=== PATIENT | male | born 1940 | race Caucasian/White ===

== ENCOUNTER → 2018-05-13 19:32 | Outpatient (REF) | payer OTHER, SELFPAY | LOC: LAB 19:32 | PROVIDERS: Visit Provider Physician Assistant | DX: L03.319 Cellulitis of trunk, unspecified (principal) | CPT/HCPCS: 87070; 87075; 87077; 87147; 87205 ==

== ENCOUNTER 2018-05-16 17:16 | Emergency (ER) | payer OTHER, SELFPAY ==
[2018-05-16 17:42] VITALS: BP 125/86; PULSE 84; RESP 20; TEMP 36.2; O2SAT 98; BMI 22.8
--- NOTE | 2018-05-16 18:00 | ED.SKABFB ---
HPI - Skin/Abscess/Foreign Bdy General Chief complaint: Skin/Abscess/Foreign Body Stated complaint: cyst on his back leaking Time Seen by Provider: 05/16/18 18:00 Source: patient Mode of arrival: ambulatory Limitations: no limitations History of Present Illness HPI narrative: The patient had an I and D done on his back at the right inferior scapular area about 4 days ago. He was showering today, the packing came out. He came in asking that the wound be checked. There is drainage from the site. He has no fever. He is on clindamycin. He also recently had a pacer placed. He wanted me to look at that wound also. He is having no chest pain, palpitations or dyspnea Related Data Home Medications Medication Instructions Recorded Confirmed spironolactone [Aldactone] 12.5 mg PO QDAY #0 11/27/15 warfarin [Coumadin] 2 mg PO QDAY #0 tab 11/27/15 warfarin [Coumadin] 3 mg PO QDAY #0 tab 11/27/15 bisoprolol fumarate 5 mg PO BID #0 12/25/15 bumetanide 1 mg #0 12/25/15 omeprazole 20 mg PO BID #0 tab 12/25/15 digoxin [Lanoxin] #0 04/05/17 Previous Rx's Medication Instructions Recorded ondansetron [Zofran ODT] 4 mg SUBLINGUAL Q6HP PRN #4 odt 04/05/17 Allergies Allergy/AdvReac Type Severity Reaction Status Date / Time fluconazole [FLUCONAZOLE] Allergy Mild RASH Verified 05/16/18 17:41 itraconazole [From SPORANOX] Allergy Unknown Verified 05/16/18 17:41 Review of Systems Review of Systems ROS Unobtainable: All systems reviewed & are unremarkable except as noted in HPI and below Constitutional Denies body ache(s), Denies chills and Denies fatigue Cardiovascular Denies chest pain, Denies irregular heart rhythm, Denies lightheadedness, Denies palpitations, Denies dyspnea and Denies orthopnea Respiratory Denies dyspnea Integumentary/Breasts Comments: recently drained I and D on the back. Endocrine Denies fatigue and Denies palpitations PFSH Medical History Arrhythmia (Acute) Pacemaker (Acute) Social History Smoking Status: Never smoker Social History Smoking Status: Never smoker Exam Initial Vital Signs Initial Vital Signs: Vital Signs Temperature 97.2 F L 05/16/18 17:42 Pulse Rate 84 05/16/18 17:42 Respiratory Rate 20 05/16/18 17:42 Blood Pressure 125/86 05/16/18 17:42 Pulse Oximetry 98 05/16/18 17:42 Const General: cooperative and well developed Nutritional Appearance: well nourished Orientation: alert, awake and oriented x3 Chest Chest: other ( pacemaker in place in the left upper chest. Contusion. No seroma.) Cardio Rate: regular rate Rhythm: regular rhythm Heart Sounds: S1 normal and S2 normal Skin General: other ( Draining abscess right midback) Course Course Narrative: the wound was evaluated in his back. A moderate amount of purulent bloody material was expressed. The wound is open, with only bloody serous discharge at this point. A superficial bandage was applied by his nurse, no packing is necessary. Vital Signs - 8 hr 05/16/18 17:42 Temperature 97.2 F L Pulse Rate 84 Respiratory Rate 20 Blood Pressure 125/86 Pulse Oximetry 98 Discharge Plan Departure Patient Disposition: Home Clinical Impression: Abscess re-check Instructions: DI for Skin Abscess Activity Restrictions/Additional Instructions: shower regularly. Change bandages over the wound as necessary. Continue taking the antibiotics. Follow up with her doctor as planned, return here if necessary. Prescriptions: No Action warfarin [Coumadin] 3 MG tablet 3 mg PO QDAY Qty: 0 RF: 0 warfarin [Coumadin] 2 MG tablet 2 mg PO QDAY Qty: 0 RF: 0 spironolactone [Aldactone] 25 MG tablet 12.5 mg PO QDAY Qty: 0 RF: 0 bisoprolol fumarate 5 MG tablet 5 mg PO BID Qty: 0 RF: 0 omeprazole 20 MG tablet,delayed release (DR/EC) 20 mg PO BID Qty: 0 RF: 0 bumetanide 1 MG tablet 1 mg Qty: 0 RF: 0 digoxin [Lanoxin] 125 mcg tablet Qty: 0 RF: 0 ondansetron [Zofran ODT] 4 MG tablet,disintegrating 4 mg Sublingual Q6HP PRNQty: 4 RF: 0 Referrals: Claudio Piper MD [Primary Care Provider] -
--- NOTE | 2018-05-16 18:14 | PC.NURSE ---
States had packing in a cyst that is on his back that came out when he showered
== END 2018-05-16 19:06 | disposition home or self-care (01) ==
PROVIDERS: Emergency Provider Emergency Medicine; PCP Internal Medicine
DX: L02.212 Cutaneous abscess of back [any part, except buttock and flank] (principal); Z95.0 Presence of cardiac pacemaker
CPT/HCPCS: 99282

== ENCOUNTER → 2019-08-24 14:58 | Outpatient (CLI) | payer OTHER, SELFPAY ==
--- NOTE | 2019-08-24 15:05 | DI.ECHO.S_ITS ---
[facility]---------+ [facility] +---------+ : : [address] [place] : : : : [id number] : : : : Phone: [phone] +---------+ Echocardiogram Report + + :Name: BÁRBARA KEEN Study Date: 08/24/2019 Height: 69 in : :[facility] Weight: 157 lb : : Gender: Male BSA: 1.9 m2 : :: 1940 Age: 78 yrs BP: 118/68 mmHg: :Reason For Study: Cardiomyopathy : :Ordering Physician: Topher : :Essie Montaño Performed By: Kimberli Darling : :Referring: TOPHER FOUNTAIN : + + Interpretation Summary The left ventricle is mildly dilated. Left ventricular ejection fraction is estimated to be 25 +/- 5%. This is unchanged compared to the previous study. There is a moderate dyssynchronous contraction pattern due to the paced rhythm. The right ventricle is moderately dilated. There is a pacemaker lead in the right ventricle. Right ventricular systolic function is moderately reduced. The right ventricular systolic pressure is estimated to be at least 36 mmHg based on an estimated right atrial pressure of 3 mm Hg. The left atrium is severely dilated. The right atrium is moderately dilated. There is moderate to severe mitral regurgitation. This is unchanged compared to the previous study. There is mild aortic regurgitation. There is moderate tricuspid regurgitation. The aortic root is normal size. Procedure: A two-dimensional transthoracic echocardiogram with color flow and Doppler was performed. The study quality was technically adequate. Comparison is made with the echocardiogram of 02/03/2017. Left Ventricle: The left ventricle is mildly dilated. Left ventricular wall thickness is mildly increased. Left ventricular ejection fraction is estimated to be 25 +/- 5%. This is unchanged compared to the previous study. There is a moderate dyssynchronous contraction pattern due to the paced rhythm. Right Ventricle: The right ventricle is moderately dilated. There is a pacemaker lead in the right ventricle. Right ventricular systolic function is moderately reduced. Atria: The left atrium is severely dilated. The right atrium is moderately dilated. There is no Doppler evidence for an interatrial shunt. Mitral Valve: There is mild mitral annular calcification. The mitral valve leaflets appear mildly thickened, but open well. There is moderate to severe mitral regurgitation. This is unchanged compared to the previous study. Aortic Valve: The aortic valve is trileaflet. The aortic valve is mildly calcified. There is mild aortic regurgitation. Tricuspid Valve: The tricuspid valve leaflets are thin and pliable. There is moderate tricuspid regurgitation. The right ventricular systolic pressure is estimated to be at least 36 mmHg based on an estimated right atrial pressure of 3 mm Hg. Pulmonic Valve: The pulmonic valve is not well seen, but is grossly normal. There is mild pulmonic regurgitation. Great Vessels: The aortic root is normal size. The dimensions of the ascending aorta are normal. The IVC is of normal diameter and collapses greater than 50% with a sniff. This suggests a low right atrial pressure of 3 mm Hg. Pericardium/ Pleura There is no pericardial effusion. There is no pleural effusion. MMode/2D Measurements & Calculations LVIDd: 5.5 cm LVOT diam: 2.2 cm LVIDs: 4.8 cm Ao root diam: 3.4 cm FS: 13.7 % asc Aorta Diam: 3.3 cm EPSS: 2.0 cm Ao Arch Diam (Prox Trans): 2.8 cm IVSd: 1.1 cm LVPWd: 1.0 cm LV alvares. diameter/BSA (cm/m^2): 3.0 LV sys. diameter/BSA (cm/m^2): 2.6 LA A2 area: 35.1 cm2 RA long axis: 6.1 cm LA A4 area: 37.0 cm2 RA area: 23.9 cm2 LA length (vol): 7.2 cm RA vol: 79.1 ml LA vol: 152.2 ml RA : 42.4 ml/m2 LA vol index: 81.7 ml/m2 IVC diam: 1.9 cm RVD1 (basal): 4.6 cm TAPSE: 1.4 cm Doppler Measurements & Calculations Ao V2 max: 180.5 cm/sec LVOT Max Maksim: 69.1 cm/sec Ao V2 mean: 108.7 cm/sec LV V1 max P.9 mmHg Ao max P.0 mmHg LV V1 VTI: 10.3 cm Ao mean P.0 mmHg LOUISA(I,D): 1.4 cm2 Ao V2 VTI: 28.5 cm LOUISA(V,D): 1.5 cm2 sev ratio: 0.36 LOUISA indexed to BSA (cm^2/m^2): 0.75 AI P1/2t: 787.6 msec AI dec slope: 149.3 cm/sec2 MV E max maksim: 82.1 cm/sec TR max maksim: 287.4 cm/sec MV A max maksim: 3.7 cm/sec TR max P.3 mmHg MV E/A: 22.2 PA V2 max: 62.3 cm/sec Med Peak E' Maksim: 5.4 cm/sec PA V2 mean: 36.2 cm/sec E/E' med: 15.1 PA mean P.66 mmHg Lat Peak E' Maksim: 7.0 cm/sec E/E' lat: 11.8 E/e' average: 13.4 MV dec time: 0.16 sec MR ERO: 0.34 cm2 MR PISA: 4.3 cm2 SV(LVOT): 39.6 ml MR flow rate: 183.8 cm3/sec MR PISA radius: 0.82 cm Reading Physician:05:28 PM
== END ==
PROVIDERS: PCP Internal Medicine; Referring Provider Internal Medicine Cardiovascular Disease; Visit Provider Internal Medicine Cardiovascular Disease
DX: I08.3 Combined rheumatic disorders of mitral, aortic and tricuspid valves (principal); I42.8 Other cardiomyopathies; Z51.81 Encounter for therapeutic drug level monitoring; Z95.0 Presence of cardiac pacemaker; Z79.899 Other long term (current) drug therapy
CPT/HCPCS: 36415; 80053; 80162; 85025; 93306

== ENCOUNTER → 2019-08-24 16:11 | Outpatient (CLI) | payer OTHER, SELFPAY ==
[2019-08-24 16:52] LABS: Alanine Aminotransferase 20 IU/L (<50); Albumin 4.7 g/dL (3.5-5.0); Albumin Globulin Ratio 1.6 (1.0-2.8); Alkaline Phosphatase 44 U/L (38-126); Aspartate Aminotransferase 29 IU/L (17-59); BUN Creatinine Ratio 30.2 (6-22); Bilirubin Total 0.8 mg/dL (0.2-1.3); Blood Urea Nitrogen 35 mg/dL (9-20); Calcium 9.9 mg/dL (8.4-10.2); Carbon Dioxide 25 mmol/L (22-32); Chloride 101 mmol/L (98-107); Estimated Glomerular Filt Rate > 60.0 mL/min (>60); Glucose 116 mg/dL (80-110); HEMOLYSIS < 15 (0-50); Potassium 4.4 mmol/L (3.4-5.1); Sodium 138 mmol/L (137-145); Total Protein 7.7 g/dL (6.3-8.2)
[2019-08-24 16:58] LABS: Add Manual Diff / Slide Review NO; Basophils Absolute Auto 100 /uL (0-100); Basophils Percent Auto 1.2 % (0-2); Eosinophils Absolute Auto 300 /uL (0-450); Eosinophils Percent Auto 3.5 % (2-4); Hematocrit 38.9 % (41-53); Hemoglobin 13.4 g/dL (13.5-17.5); Lymphocytes Absolute Auto 2000 /uL (1100-4500); Lymphocytes Percent Auto 27.1 % (25-40); Mean Corpuscular HGB Conc 34.5 % (30-36); Mean Corpuscular Hemoglobin 31.6 PG (26-34); Mean Corpuscular Volume 91.7 fL (80-100); Monocytes Absolute Auto 800 /uL (0-900); Monocytes Percent Auto 11.3 % (3-14); Neutrophils Absolute Auto 4200 /uL (1500-7000); Neutrophils Percent Auto 56.9 % (50-75); Platelet Count 152 X10^3/uL (150-400); Red Blood Cell Count 4.24 X10^6/uL (4.5-5.9); Red Cell Distribution Width 13.6 % (11.6-14.8); White Blood Cell Count 7.4 X10^3/uL (4.5-11.0)
[2019-08-24 17:03] LABS: Digoxin 1.1 ng/mL (0.8-2.0)
== END ==
PROVIDERS: PCP Internal Medicine; Referring Provider Internal Medicine Cardiovascular Disease; Visit Provider Internal Medicine Cardiovascular Disease
DX: I51.9 Heart disease, unspecified (principal); Z51.81 Encounter for therapeutic drug level monitoring; Z79.899 Other long term (current) drug therapy
CPT/HCPCS: 36415; 80053; 80162; 85025

== ENCOUNTER → 2019-12-28 18:40 | Outpatient (ROUT) | payer OTHER, SELFPAY ==
[2019-12-28 19:14] LABS: Aspartate Aminotransferase 29 IU/L (17-59); BUN Creatinine Ratio 25.4 (6-22); Blood Urea Nitrogen 31 mg/dL (9-20); Calcium 10.2 mg/dL (8.4-10.2); Carbon Dioxide 27 mmol/L (22-32); Chloride 100 mmol/L (98-107); Cholesterol 102 mg/dL (140-199); Estimated Glomerular Filt Rate 57.2 mL/min (>60); Glucose 108 mg/dL (80-110); HDL Cholesterol 31 mg/dL (40-60); HEMOLYSIS < 15 (0-50); LDL Cholesterol Calculated 42 mg/dL (<100); Potassium 4.6 mmol/L (3.4-5.1); Sodium 137 mmol/L (137-145); Triglycerides 144 mg/dL (35-150)
== END ==
PROVIDERS: PCP Internal Medicine; Visit Provider Internal Medicine
DX: I10 Essential (primary) hypertension (principal); E78.2 Mixed hyperlipidemia
CPT/HCPCS: 80048; 80061; 84450

== ENCOUNTER → 2020-09-03 07:53 | Outpatient (CLI) | payer MEDICARE, SELFPAY ==
--- NOTE | 2020-09-03 | DI.ECHO.S_ITS ---
[facility]---------+ [facility] +---------+ : : [address] : [place] : : : : [id number] : : : : Phone: [phone] : : [phone] +---------+ Echocardiogram Report + + :Name: BÁRBARA KEEN Study Date: 09/03/2020 Height: 69 in : :[facility] ReadingLocation: Weight: 159 lb : : Gender: Male BSA: 1.9 m2 : :: 1940 Age: 79 yrs BP: 119/74 mmHg: :Reason For Study: Congestive Heart Failure : :Ordering Physician: Topher : :Sabra Fountain Performed By: Pedro Batres : :Referring: TOPHER FOUNTAIN : + + Interpretation Summary The left ventricle is moderately dilated. Left ventricular systolic function is severely reduced. The ejection fraction is estimated to be 15-20%. Left ventricular function has slightly worsened compared to the previous exam. There is moderate global hypokinesis of the left ventricle. There is anterolateral wall severe hypokinesis. There is basal posterolateral wall severe hypokinesis. There is proximal mid posteriolateral wall severe hypokinesis. The right ventricle is moderately dilated. Right ventricular systolic function is moderately reduced. The right ventricular systolic pressure is estimated to be at least 53 mmHg based on an estimated right atrial pressure of 15 mm Hg. Compared to the prior echo exam, there has been an increase in the severity of pulmonary hypertension. Both atria are severely dilated. There is severe mitral regurgitation which has mildly increased since prior study. There is mild aortic regurgitation. There is moderate to severe tricuspid regurgitation. There is moderate pulmonic regurgitation. The aortic root is normal size. Procedure: A two-dimensional transthoracic echocardiogram with color flow and Doppler was performed. The study quality was technically adequate. Comparison is made with the echocardiogram of 1939. The patient was in sinus rhythm with heart rates between 72-81 bpm during the exam. Left Ventricle: The left ventricle is moderately dilated. There is normal left ventricular wall thickness. Left ventricular systolic function is severely reduced. The ejection fraction is estimated to be 15-20%. Left ventricular function has slightly worsened compared to the previous exam. There is moderate global hypokinesis of the left ventricle. There is anterolateral wall severe hypokinesis. There is basal posterolateral wall severe hypokinesis. There is proximal mid posteriolateral wall severe hypokinesis. Diastolic function could not be accurately assessed due to unobtainable data. Right Ventricle: The right ventricle is moderately dilated. Right ventricular systolic function is moderately reduced. Atria: Both atria are severely dilated. There is no Doppler evidence for an interatrial shunt. Mitral Valve: The mitral valve leaflets appear mildly thickened, but open well. There is severe mitral regurgitation. Aortic Valve: There is moderate aortic valve sclerosis. There is mild aortic regurgitation. Tricuspid Valve: The tricuspid valve leaflets are thickened and/or calcified, but open well. There is moderate to severe tricuspid regurgitation. The right ventricular systolic pressure is estimated to be at least 53 mmHg based on an estimated right atrial pressure of 15 mm Hg. Compared to the prior echo exam, there has been an increase in the severity of pulmonary hypertension. Pulmonic Valve: The pulmonic valve is normal in structure and function. There is moderate pulmonic regurgitation. Great Vessels: The aortic root is normal size. The dimensions of the ascending aorta are normal. The IVC is dilated (diameter is greater than 2.1 cm) and it collapses less than 50% with a sniff. This suggests a high right atrial pressure of 15 mm Hg. Pericardium/ Pleura There is no pericardial effusion. There is no pleural effusion. MMode/2D Measurements & Calculations LVIDd: 6.7 cm LVOT diam: 2.1 cm LVIDs: 6.0 cm Ao root diam: 3.1 cm FS: 10.5 % asc Aorta Diam: 3.4 cm IVSd: 1.0 cm LVPWd: 0.58 cm LV alvares. diameter/BSA (cm/m^2): 3.6 LV sys. diameter/BSA (cm/m^2): 3.2 LA A2 area: 39.6 cm2 RA area: 30.6 cm2 LA A4 area: 34.3 cm2 IVC diam: 2.5 cm LA length (vol): 7.1 cm LA vol: 162.0 ml LA vol index: 86.4 ml/m2 RVD1 (basal): 4.8 cm TAPSE: 1.0 cm Doppler Measurements & Calculations Ao V2 max: 137.5 cm/sec LVOT Max Maksim: 73.8 cm/sec Ao V2 mean: 100.3 cm/sec LV V1 max P.2 mmHg Ao max P.6 mmHg LV V1 VTI: 11.8 cm Ao mean P.4 mmHg LOUISA(I,D): 2.1 cm2 Ao V2 VTI: 19.9 cm LOUISA(V,D): 1.9 cm2 sev ratio: 0.59 LOUISA indexed to BSA (cm^2/m^2): 1.1 AI P1/2t: 798.2 msec AI dec slope: 149.7 cm/sec2 TR max maksim: 308.5 cm/sec MR VTI: 142.9 cm TR max P.1 mmHg PA V2 max: 70.4 cm/sec PA V2 mean: 43.3 cm/sec PA mean P.88 mmHg PA pr(Accel): 56.2 mmHg SV(LVOT): 42.1 ml Reading Physician:12:35 PM
== END ==
PROVIDERS: PCP Internal Medicine; Referring Provider Internal Medicine Cardiovascular Disease; Visit Provider Internal Medicine Cardiovascular Disease
DX: I08.3 Combined rheumatic disorders of mitral, aortic and tricuspid valves (principal); I27.20 Pulmonary hypertension, unspecified; I50.9 Heart failure, unspecified
CPT/HCPCS: 93306

== ENCOUNTER → 2020-11-07 11:10 | Outpatient (CLI) | payer MEDICARE, SELFPAY ==
[2020-11-07 12:35] LABS: COVID19 -Nasal RAPID Negative (Negative)
== END ==
PROVIDERS: PCP Internal Medicine; Visit Provider Student in an Organized Health Care Education/Training Program
DX: Z01.812 Encounter for preprocedural laboratory examination (principal); Z20.822 Contact with and (suspected) exposure to COVID-19
CPT/HCPCS: 87635; C9803

== ENCOUNTER 2020-12-05 15:30 | Emergency (ER) | payer MEDICARE, SELFPAY ==
[2020-12-05 15:40] VITALS: BP 134/84; PULSE 72; RESP 16; TEMP 36.1; O2SAT 97; BMI 23.7
[2020-12-05 16:35] LABS: INR 3.1 (0.9-1.3); Prothrombin Time 35.7 SECONDS (10.1-12.7)
[2020-12-05 17:05] LABS: Add Manual Diff / Slide Review NO; Basophils Absolute Auto 0 /uL (0-100); Basophils Percent Auto 0.6 % (0-2); Eosinophils Absolute Auto 100 /uL (0-450); Eosinophils Percent Auto 2.2 % (2-4); Hematocrit 41.2 % (41-53); Hemoglobin 13.6 g/dL (13.5-17.5); Lymphocytes Absolute Auto 1300 /uL (1100-4500); Lymphocytes Percent Auto 19.2 % (25-40); Mean Corpuscular HGB Conc 33.1 % (30-36); Mean Corpuscular Hemoglobin 29.4 PG (26-34); Mean Corpuscular Volume 88.9 fL (80-100); Monocytes Absolute Auto 700 /uL (0-900); Monocytes Percent Auto 11.2 % (3-14); Neutrophils Absolute Auto 4400 /uL (1500-7000); Neutrophils Percent Auto 66.8 % (50-75); Platelet Count 143 X10^3/uL (150-400); Red Blood Cell Count 4.63 X10^6/uL (4.5-5.9); Red Cell Distribution Width 15.5 % (11.6-14.8); White Blood Cell Count 6.5 X10^3/uL (4.5-11.0)
--- NOTE | 2020-12-05 17:05 | ED.GENADULT ---
HPI - General Adult <Noemi Lieberman PA-C - Last Filed: 12/05/20 19:40> General Chief complaint: Dental/Oral Stated complaint: bit tongue, on blood thinner, still bleeding Time Seen by Provider: 12/05/20 15:52 History of Present Illness HPI narrative: 80-year-old male with unspecified cardiac history on blood thinners presents to the ED 3 hours after biting his tongue. Patient is on warfarin and Brilinta. Patient states he is having some stents put in in 3 weeks. Patient endorses accidentally biting his tongue earlier today, following which his tongue has been bleeding. Patient states that hemostasis was not achieved despite pressure. Patient denies feeling lightheaded or dizzy. Denies fever, chills, syncope, chest pain, shortness of breath, nausea, vomiting, abdominal pain. Any other trauma. Related Data Home Medications Medication Instructions Recorded Confirmed spironolactone 25 mg tablet 12.5 mg PO QDAY #0 11/27/15 (Aldactone) warfarin 2 mg tablet (Coumadin) 2 mg PO QDAY #0 tab 11/27/15 warfarin 3 mg tablet (Coumadin) 3 mg PO QDAY #0 tab 11/27/15 bisoprolol fumarate 5 mg tablet 5 mg PO BID #0 12/25/15 bumetanide 1 mg tablet 1 mg #0 12/25/15 omeprazole 20 mg tablet,delayed 20 mg PO BID #0 tab 12/25/15 release digoxin 125 mcg (0.125 mg) tablet #0 04/05/17 (Lanoxin) Previous Rx's Medication Instructions Recorded ondansetron 4 mg disintegrating 4 mg SUBLINGUAL Q6HP PRN #4 odt 04/05/17 tablet (Zofran ODT) Allergies Allergy/AdvReac Type Severity Reaction Status Date / Time fluconazole [FLUCONAZOLE] Allergy Mild RASH Verified 06/23/18 17:51 itraconazole [From SPORANOX] Allergy Unknown Verified 06/23/18 17:51 clopidogrel [From Plavix] Allergy Rash Verified 12/05/20 15:46 Review of Systems <Noemi Lieberman PA-C - Last Filed: 12/05/20 19:40> Constitutional Constitutional: Denies chills, Denies fatigue, Denies fever(s), Denies frequent falls, Denies lethargy and Denies weakness Eyes Eyes: Denies change in vision, Denies eye discharge, Denies irritation and Denies loss of vision ENT Ears, Nose, Mouth, and Throat: Denies change in voice, Denies dizziness, Denies neck pain, Denies sore throat and Denies throat swelling Comments: Tongue bleeding Cardiovascular Cardiovascular: Denies chest pain, Denies irregular heart rhythm, Denies lightheadedness, Denies palpitations, Denies dyspnea, Denies dyspnea on exertion and Denies orthopnea Respiratory Respiratory: Denies cough, Denies dyspnea, Denies dyspnea on exertion and Denies wheezing Gastrointestinal Gastrointestinal: Denies abdominal pain, Denies change in bowel habits, Denies diarrhea, Denies nausea and Denies vomiting Musculoskeletal Musculoskeletal: Denies neck pain and Denies numbness Integumentary/Breasts Skin/Breast: Denies pruritus, Denies erythema, Denies rash and Denies wounds Neurologic Neurologic: Denies behavioral changes, Denies confusion, Denies dizziness, Denies frequent falls, Denies loss of vision, Denies numbness and Denies weakness Psychiatric Psychiatric: Denies anxiety, Denies behavioral changes, Denies confusion, Denies depression, Denies homicidal ideation and Denies suicidal ideation Endocrine Endocrine: Denies fatigue, Denies flushing and Denies palpitations Hematologic/Lymphatic Hematologic/Lymphatic: Denies easy bruising Allergic/Immunologic Allergic/Immunologic: Denies urticaria, Denies throat swelling and Denies wheezing Patient History <Noemi Lieberman PA-C - Last Filed: 12/05/20 19:40> Medical History Arrhythmia Pacemaker Social History Smoking Status: Never smoker Smoking Status: Never smoker Substance Use Type: does not use Exam <Noemi Lieberman PA-C - Last Filed: 12/05/20 19:40> Narrative Exam Narrative: Small laceration to the top of the tongue from accidentally biting it. Laceration not big enough for deep enough to warrant repair. Small amount of blood oozing from the laceration, not responsive to pressure. Initial Vital Signs Initial Vital Signs: Vital Signs Temperature 97.0 F L 12/05/20 15:40 Pulse Rate 72 12/05/20 15:40 Respiratory Rate 16 12/05/20 15:40 Blood Pressure 134/84 12/05/20 15:40 Pulse Oximetry 97 12/05/20 15:40 Const General: cooperative [facility] Head: normocephalic and atraumatic Ears: external ears normal and TM's normal bilaterally Nose: external nose normal and No nasal discharge Face and sinus: sinuses nontender, face symmetric, no sinus tenderness and No dry mucous membranes Mouth: oral mucosae normal, No tongue normal (Small laceration to the tongue from accidentally bite, does not need repair) and moist mucous membranes Teeth and gingiva: dentition normal Throat: tonsils normal and uvula midline Eyes General: appearance normal, both eyes and all related structures Eyelids: eyelids normal Conjunctivae: conjunctivae normal Sclera: sclerae normal Pupils: PERRL EOM: EOM intact bilaterally Neck Neck: normal visual inspection, trachea midline, No lymphadenopathy, No midline deformity and No JVD Lymphatic: No lymphedema Chest Chest: normal inspection of the chest Resp Effort & Inspection: normal respiratory effort, able to speak in complete sentences, no respiratory distress and no use of accessory muscles Auscultation: clear to auscultation bilaterally, no rales, no rhonchi and no wheezes Cardio Rate: regular rate Rhythm: regular rhythm Heart Sounds: no click, no gallops, no murmurs and no rubs Pulses: normal peripheral pulses GI Inspection: non-distended Palpation: soft, no hepatosplenomegaly, No guarding, No pulsatile mass and No tender Auscultation: normal bowel sounds Back/Spine/Pelvis Back: No CVA tenderness Cervical Spine: cervical ROM normal and No pain with cervical ROM Thoracic/Lumbar Spine: thoracic and lumbar spine normal to inspection Skin General: no rashes or lesions noted, No jaundice and No petechiae Neuro General: patient alert, patient oriented x3, gait normal and no focal motor deficits Speech: speech normal Extrem General: full ROM, no clubbing, cyanosis or edema, no pedal edema and no calf tenderness Psych Appearance: well kempt Mental Status: mental status grossly normal Attitude: cooperative Thought Content: normal and suicidality Judgment: judgment good <Tamera Carranza MD - Last Filed: 12/11/20 05:43> Initial Vital Signs Initial Vital Signs: Vital Signs Temperature 97.0 F L 12/05/20 15:40 Pulse Rate 72 12/05/20 15:40 Respiratory Rate 16 09/08/21 15:40 Blood Pressure 134/84 12/05/20 15:40 Pulse Oximetry 97 12/05/20 15:40 Procedures <Noemi Lieberman PA-C - Last Filed: 12/05/20 19:40> [facility] [place] Procedure: Tongue bleed control Location: Tongue Technique/Description of procedure performed: TXA soaked gauze applied with pressure for several minutes until hemostasis was achieved. Patient tolerated procedure: Well Course <Noemi Lieberman PA-C - Last Filed: 12/05/20 19:40> Course Course Narrative: TXA soaked gauze was applied with pressure until hemostasis was achieved. Patient tolerated the procedure well. Patient was stable through the ED stay, H&H stable. Will discharge home with ED return precautions and PCP and instruments sales representative follow-up. Orders Ordered: Discontinued Medications Tranexamic Acid (Tranexamic Acid 1,000 Mg Vial) 1,000 mg TOP NOW ONE Stop: 12/05/20 16:36 Last Admin: 12/05/20 17:21 Dose: 1,000 mg Documented by: KWAME Vital Signs Vital signs: Vital Signs - 8 hr 12/05/20 15:40 12/05/20 18:43 Temperature 97.0 F L Pulse Rate 72 73 Respiratory Rate 16 18 Blood Pressure 134/84 108/66 Pulse Oximetry 97 98 <Tamera Carranza MD - Last Filed: 12/11/20 05:43> Orders Ordered: Discontinued Medications Tranexamic Acid (Tranexamic Acid 1,000 Mg Vial) 1,000 mg TOP NOW ONE Stop: 12/05/20 16:36 Last Admin: 12/05/20 17:21 Dose: 1,000 mg Documented by: KWAME Vital Signs Vital signs: Vital Signs - 8 hr 12/05/20 15:40 12/05/20 18:43 Temperature 97.0 F L Pulse Rate 72 73 Respiratory Rate 16 18 Blood Pressure 134/84 108/66 Pulse Oximetry 97 98 Medical Decision Making <Noemi Lieberman PA-C - Last Filed: 12/05/20 19:40> Medical Records Medical records reviewed: Yes I reviewed the patient's medical records. Lab Data Lab results reviewed: Yes I reviewed the patient's lab results. Lab results narrative: Labs WNL Result diagrams: 12/05/20 16:21 Labs: Lab Results 12/05/20 12/05/20 Range/Units 16:21 16:21 WBC 6.5 (4.5-11.0) X10^3/uL RBC 4.63 (4.5-5.9) X10^6/uL Hgb 13.6 (13.5-17.5) g/dL Hct 41.2 (41-53) % MCV 88.9 (80-100) fL MCH 29.4 (26-34) PG MCHC 33.1 (30-36) % RDW 15.5 H (11.6-14.8) % Plt Count 143 L (150-400) X10^3/uL Neut % (Auto) 66.8 (50-75) % Lymph % (Auto) 19.2 L (25-40) % Allen % (Auto) 11.2 (3-14) % Eos % (Auto) 2.2 (2-4) % Baso % (Auto) 0.6 (0-2) % Neut # (Auto) 4400 (0347-7793) /uL Lymph # (Auto) 1300 (2484-1993) /uL Allen # (Auto) 700 (0-900) /uL Eos # (Auto) 100 (0-450) /uL Baso # (Auto) 0 (0-100) /uL PT 35.7 H (10.1-12.7) SECONDS INR 3.1 H (0.9-1.3) MDM Narrative Medical decision making narrative: 80-year-old male with unspecified cardiac history on blood thinners presents to the ED 3 hours after biting his tongue. Patient is on warfarin and Brilinta. Will treat bleeding with TXA soaked gauze, re-evaluate. We will obtain CBC, PT INR. Likely discharge home with ED return precautions. <Tamera Carranza MD - Last Filed: 12/11/20 05:43> Lab Data Labs: Lab Results 12/05/20 12/05/20 Range/Units 16:21 16:21 WBC 6.5 (4.5-11.0) X10^3/uL RBC 4.63 (4.5-5.9) X10^6/uL Hgb 13.6 (13.5-17.5) g/dL Hct 41.2 (41-53) % MCV 88.9 (80-100) fL MCH 29.4 (26-34) PG MCHC 33.1 (30-36) % RDW 15.5 H (11.6-14.8) % Plt Count 143 L (150-400) X10^3/uL Neut % (Auto) 66.8 (50-75) % Lymph % (Auto) 19.2 L (25-40) % Allen % (Auto) 11.2 (3-14) % Eos % (Auto) 2.2 (2-4) % Baso % (Auto) 0.6 (0-2) % Neut # (Auto) 4400 (2761-1493) /uL Lymph # (Auto) 1300 (2754-7466) /uL Allen # (Auto) 700 (0-900) /uL Eos # (Auto) 100 (0-450) /uL Baso # (Auto) 0 (0-100) /uL PT 35.7 H (10.1-12.7) SECONDS INR 3.1 H (0.9-1.3) Discharge Plan Departure Patient Disposition: Home Clinical Impression: Laceration of tongue Instructions: DI for Minor Laceration Activity Restrictions/Additional Instructions: You were diagnosed with a very small laceration on your tongue due to accidentally biting it today. Tranexamic acid was applied on a gauze to control the bleeding successfully. Return to the ED if bleeding recurs or you experience shortness of breath, chest pain. Follow-up with your PCP and instruments sales representative. Prescriptions: No Action warfarin [Coumadin] 3 MG tablet 3 mg PO QDAY Qty: 0 RF: 0 warfarin [Coumadin] 2 MG tablet 2 mg PO QDAY Qty: 0 RF: 0 spironolactone [Aldactone] 25 MG tablet 12.5 mg PO QDAY Qty: 0 RF: 0 bisoprolol fumarate 5 MG tablet 5 mg PO BID Qty: 0 RF: 0 omeprazole 20 MG tablet,delayed release (DR/EC) 20 mg PO BID Qty: 0 RF: 0 bumetanide 1 MG tablet 1 mg Qty: 0 RF: 0 digoxin [Lanoxin] 125 mcg tablet Qty: 0 RF: 0 ondansetron [Zofran ODT] 4 MG tablet,disintegrating 4 mg Sublingual Q6HP PRNQty: 4 RF: 0 Referrals: Danial Estevez MD [Primary Care Provider] - <Tamera Carranza MD - Last Filed: 12/11/20 05:43> Cosign ED Attending Cosignature Attestation: I was immediately available in the department for consultation throughout this patient's visit. I agree with documentation as above. Tamera Carranza MD
[2020-12-05] MEDS: TRANEXAMIC ACID 1,000 MG VIAL 1000 MG TOP (17:21)
[2020-12-05 18:43] VITALS: BP 108/66; PULSE 73; RESP 18; O2SAT 98
== END 2020-12-05 18:52 | disposition home or self-care (01) ==
PROVIDERS: Emergency Provider Student in an Organized Health Care Education/Training Program; PCP Internal Medicine
DX: S01.512A Laceration without foreign body of oral cavity, initial encounter (principal); X58.XXXA Exposure to other specified factors, initial encounter; Z79.01 Long term (current) use of anticoagulants
CPT/HCPCS: 36415; 85025; 85610; 99282; 99283

== ENCOUNTER → 2020-12-24 11:59 | Outpatient (CLI) | payer MEDICARE, SELFPAY ==
[2020-12-24 13:57] LABS: COVID-19 CEPHEID PCR (VTM/NP) Negative (Negative)
== END ==
PROVIDERS: PCP Internal Medicine; Referring Provider Nurse Practitioner Family; Visit Provider Nurse Practitioner Family
DX: Z20.822 Contact with and (suspected) exposure to COVID-19 (principal)
CPT/HCPCS: C9803; U0003

== ENCOUNTER → 2021-01-28 09:25 | Outpatient (CLI) | payer MEDICARE, SELFPAY ==
--- NOTE | 2021-01-28 | DI.ECHO.S_ITS ---
[place] [facility]---------[facility] +---------+ : : [address] : : : : [id number] : : : : Phone: [phone]+ Echocardiogram Report + + :Name: BÁRBARA KEEN Study Date: 01/28/2021 Height: 66 in : [facility] ReadingLocation: Weight: 146 lb : : Gender: Male BSA: 1.7 m2 : :: 1940 Age: 80 yrs BP: 113/74 mmHg: :Reason For Study: MITRAL VALVE CLIP : :Ordering Physician: Maciej MONKformed By: Kimberli Darling : :Referring: SHANIA MONK : + + Interpretation Summary The left ventricle is moderately dilated. LV chamber size has slighlty decreased since prior study. Left ventricular systolic function is severely reduced. The ejection fraction is estimated to be 15-20%. There has been no significant change since the previous exam. There is moderate global hypokinesis of the left ventricle. There is anterolateral wall severe hypokinesis. There is basal posterolateral wall severe hypokinesis. There is proximal mid posteriolateral wall severe hypokinesis. The right ventricle is moderately dilated. There is a pacemaker lead in the right ventricle. Right ventricular systolic function is moderately reduced. There has been no significant change since the previous exam. The right ventricular systolic pressure is estimated to be at least 42 mmHg based on an estimated right atrial pressure of 3 mm Hg. Compared to the prior echo exam, there has been a decrease in the severity of pulmonary hypertension. The left atrium is severely dilated. The right atrium is severely dilated. There is mild to moderate mitral regurgitation. There are multiple regurgitant jets present. A mitral valve clip is present. There is mild aortic regurgitation. There is mild to moderate tricuspid regurgitation. Compared to the prior echo exam, there has been a decrease in TR severity. The aortic root is normal size. Procedure: A two-dimensional transthoracic echocardiogram with color flow and Doppler was performed. The study quality was technically good. Comparison is made with the echocardiogram of 11/09/2020. The heart rate ranged between 68-75 bpm during the study. Left Ventricle: There is normal left ventricular wall thickness. The left ventricle is moderately dilated. The estimated left ventricular end diastolic volume is 179 ml. LV chamber size has slighlty decreased since prior study. Left ventricular systolic function is severely reduced. The ejection fraction is estimated to be 15-20%. There has been no significant change since the previous exam. There is moderate global hypokinesis of the left ventricle. There is anterolateral wall severe hypokinesis. There is basal posterolateral wall severe hypokinesis. There is proximal mid posteriolateral wall severe hypokinesis. Diastolic function could not be accurately assessed due to paced rhythm. Right Ventricle: The right ventricle is moderately dilated. There is a pacemaker lead in the right ventricle. Right ventricular systolic function is moderately reduced. There has been no significant change since the previous exam. Atria: The left atrium is severely dilated. The right atrium is severely dilated. There is no Doppler evidence for an interatrial shunt. Mitral Valve: The mitral valve leaflets appear mildly thickened, but open well. A mitral valve clip is present. There is mild to moderate mitral regurgitation. There are multiple regurgitant jets present. Aortic Valve: There is moderate aortic valve sclerosis. There is no aortic valve stenosis. There is mild aortic regurgitation. Tricuspid Valve: Tricuspid leaflets are thickened. There is mild to moderate tricuspid regurgitation. Compared to the prior echo exam, there has been a decrease in TR severity. The right ventricular systolic pressure is estimated to be at least 42 mmHg based on an estimated right atrial pressure of 3 mm Hg. Compared to the prior echo exam, there has been a decrease in the severity of pulmonary hypertension. Pulmonic Valve: The pulmonic valve is not well seen, but is grossly normal. There is mild pulmonic regurgitation. Great Vessels: The aortic root is normal size. The dimensions of the ascending aorta are normal. The IVC is of normal diameter and collapses greater than 50% with a sniff. This suggests a low right atrial pressure of 3 mm Hg. Pericardium/ Pleura There is no pericardial effusion. There is no pleural effusion. MMode/2D Measurements & Calculations LVIDd: 6.4 cm LVOT diam: 2.1 cm LVIDs: 6.1 cm Ao root diam: 3.5 cm FS: 4.4 % asc Aorta Diam: 3.5 cm IVSd: 1.2 cm Ao Arch Diam (Prox Trans): 2.7 cm LVPWd: 0.69 cm LV alvares. diameter/BSA (cm/m^2): 3.6 LV sys. diameter/BSA (cm/m^2): 3.5 LA A2 area: 36.6 cm2 RA long axis: 6.0 cm LA A4 area: 34.2 cm2 RA area: 32.8 cm2 LA length (vol): 7.0 cm RA vol: 152.4 ml LA vol: 151.2 ml RA : 87.1 ml/m2 LA vol index: 86.4 ml/m2 IVC diam: 2.0 cm RVD1 (basal): 5.0 cm Doppler Measurements & Calculations Ao V2 max: 150.0 cm/sec LVOT Max Maksim: 68.9 cm/sec Ao V2 mean: 108.5 cm/sec LV V1 max P.9 mmHg Ao max P.0 mmHg LV V1 VTI: 11.0 cm Ao mean P.3 mmHg LOUISA(I,D): 1.7 cm2 Ao V2 VTI: 22.9 cm LOUISA(V,D): 1.6 cm2 sev ratio: 0.48 LOUISA indexed to BSA (cm^2/m^2): 0.96 AI P1/2t: 669.2 msec AI dec slope: 175.7 cm/sec2 Med Peak E' Maksim: 5.7 cm/sec TR max maksim: 310.7 cm/sec Lat Peak E' Maksim: 6.4 cm/sec TR max P.6 mmHg MVA(VTI): 1.6 cm2 PA pr(Accel): 39.6 mmHg MR ERO: 0.26 cm2 MV V2 mean: 74.8 cm/sec MR PISA: 3.1 cm2 MV mean P.8 mmHg MR flow rate: 132.3 cm3/sec MV V2 VTI: 23.8 cm MR PISA radius: 0.70 cm SV(LVOT): 38.3 ml Reading Physician:01:14 PM
[2021-01-28 12:13] LABS: Add Manual Diff / Slide Review NO; Basophils Absolute Auto 0 /uL (0-100); Basophils Percent Auto 0.7 % (0-2); Eosinophils Absolute Auto 200 /uL (0-450); Eosinophils Percent Auto 2.5 % (2-4); Hematocrit 40.1 % (41-53); Hemoglobin 13.6 g/dL (13.5-17.5); Lymphocytes Absolute Auto 1400 /uL (1100-4500); Lymphocytes Percent Auto 21.9 % (25-40); Mean Corpuscular HGB Conc 33.8 % (30-36); Mean Corpuscular Hemoglobin 30.4 PG (26-34); Mean Corpuscular Volume 89.8 fL (80-100); Monocytes Absolute Auto 600 /uL (0-900); Monocytes Percent Auto 9.6 % (3-14); Neutrophils Absolute Auto 4100 /uL (1500-7000); Neutrophils Percent Auto 65.3 % (50-75); Platelet Count 189 X10^3/uL (150-400); Red Blood Cell Count 4.46 X10^6/uL (4.5-5.9); Red Cell Distribution Width 16.5 % (11.6-14.8); White Blood Cell Count 6.3 X10^3/uL (4.5-11.0)
[2021-01-28 12:25] LABS: BUN Creatinine Ratio 31.8 (6-22); Blood Urea Nitrogen 35 mg/dL (9-20); Calcium 10.2 mg/dL (8.4-10.2); Carbon Dioxide 28 mmol/L (22-32); Chloride 96 mmol/L (98-107); Estimated Glomerular Filt Rate > 60.0 mL/min (>60); Glucose 219 mg/dL (80-110); HEMOLYSIS < 15 (0-50); Potassium 4.5 mmol/L (3.4-5.1); Sodium 135 mmol/L (137-145)
== END ==
PROVIDERS: Specialist; PCP Internal Medicine; Referring Provider Internal Medicine; Visit Provider Internal Medicine
DX: Z98.890 Other specified postprocedural states (principal); Z95.818 Presence of other cardiac implants and grafts; I08.3 Combined rheumatic disorders of mitral, aortic and tricuspid valves
CPT/HCPCS: 36415; 80048; 85025; 93306

== ENCOUNTER → 2021-01-29 14:49 | Outpatient (CLI) | payer MEDICARE, SELFPAY | PROVIDERS: PCP Internal Medicine; Referring Provider Specialist; Visit Provider Specialist | DX: I48.92 Unspecified atrial flutter (principal); Z98.890 Other specified postprocedural states; I48.91 Unspecified atrial fibrillation | CPT/HCPCS: 93005 ==

== ENCOUNTER 2021-06-03 14:15 | Outpatient (RCR) | payer MEDICARE, SELFPAY | END 2021-06-03 16:15 | LOC: CAR 14:15 | PROVIDERS: PCP Internal Medicine; Referring Provider Specialist; Visit Provider Specialist | DX: I50.22 Chronic systolic (congestive) heart failure (principal) | CPT/HCPCS: 93798 ==

== ENCOUNTER → 2021-06-04 15:00 | Outpatient (CLI) | payer MEDICARE, SELFPAY ==
[2021-06-04 16:08] LABS: Hematocrit 38.8 % (41-53); Hemoglobin 12.9 g/dL (13.5-17.5); Mean Corpuscular HGB Conc 33.3 % (30-36); Mean Corpuscular Hemoglobin 30.1 PG (26-34); Mean Corpuscular Volume 90.3 fL (80-100); Platelet Count 201 X10^3/uL (150-400); Red Blood Cell Count 4.29 X10^6/uL (4.5-5.9); Red Cell Distribution Width 14.6 % (11.6-14.8); White Blood Cell Count 7.6 X10^3/uL (4.5-11.0)
[2021-06-04 16:21] LABS: Hemoglobin A1C% w Est Avg Glu 7.3 % (4.0-6.0)
[2021-06-04 16:29] LABS: BUN Creatinine Ratio 17.6 (6-22); Blood Urea Nitrogen 31 mg/dL (9-20); Carbon Dioxide 28 mmol/L (22-32); Chloride 98 mmol/L (98-107); Estimated Glomerular Filt Rate 37.4 mL/min (>60); Glucose 178 mg/dL (80-110); HEMOLYSIS < 15 (0-50); Potassium 4.8 mmol/L (3.4-5.1); Sodium 135 mmol/L (137-145)
== END ==
PROVIDERS: PCP Internal Medicine; Referring Provider Internal Medicine; Visit Provider Internal Medicine
DX: I48.20 Chronic atrial fibrillation, unspecified (principal); E11.9 Type 2 diabetes mellitus without complications; I10 Essential (primary) hypertension
CPT/HCPCS: 36415; 80048; 83036; 85027

== ENCOUNTER → 2021-07-10 15:44 | Outpatient (CLI) | payer MEDICARE, SELFPAY ==
[2021-07-10 17:26] LABS: BUN Creatinine Ratio 23.8 (6-22); Blood Urea Nitrogen 34 mg/dL (9-20); Calcium 10.3 mg/dL (8.4-10.2); Carbon Dioxide 31 mmol/L (22-32); Chloride 98 mmol/L (98-107); Estimated Glomerular Filt Rate 49 mL/min (>60); Glucose 96 mg/dL (80-110); HEMOLYSIS < 15 (0-50); Potassium 4.5 mmol/L (3.4-5.1); Sodium 140 mmol/L (137-145)
== END ==
PROVIDERS: PCP Internal Medicine; Referring Provider Internal Medicine; Visit Provider Internal Medicine
DX: I50.22 Chronic systolic (congestive) heart failure (principal)
CPT/HCPCS: 36415; 80048

== ENCOUNTER → 2021-07-25 08:59 | Outpatient (CLI) | payer MEDICARE, SELFPAY ==
--- NOTE | 2021-07-25 | DI.ECHO.S_ITS ---
Version: 1 Study ID: [id number] [place] [address] Name: BÁRBARA KEEN Study Date: 07/25/2021, 9: 37 AM : 1940 BP: 106 / 68 mmHg Gender: Male Height: 67.5 in Age: 80 Years Weight: 148 lb BSA: 1.79 mA? Ordering: MANUEL FOUNTAIN Referring: MANUEL FOUNTAIN Clinician: Kimberli Darling Reason For Study: HEART DISEASE History: Summary Statements The left ventricle is moderately dilated. Left ventricular systolic function is severely reduced. The ejection fraction is estimated to be 20-25%. Left ventricular systolic function has slightly improved compared to the previous exam. There is severe global hypokinesis of the left ventricle. The right ventricle is moderately dilated. Right ventricular systolic function is borderline reduced. The right ventricular systolic pressure is estimated to be at least 39 mmHg based on an estimated right atrial pressure of 3 mm Hg. This is decreased compared to the previous study. The left atrium is severely dilated. The right atrium is severely dilated. A mitral valve clip is present. There is moderate mitral regurgitation. Compared to the prior echo study, there has been a decrease in the severity of mitral regurgitation. There is mild to moderate tricuspid regurgitation. Compared to the prior echo exam, there has been a decrease in TR severity. There is mild to moderate pulmonic regurgitation. The aortic root is normal size. Procedure: A two-dimensional transthoracic echocardiogram with color flow and Doppler was performed. The study quality was technically good. Comparison is made with the echocardiogram of 01/28/2021. The patient was in sinus rhythm with heart rates between 73-80 bpm during the exam. Left Ventricle: The estimated left ventricular end diastolic volume is 172 ml. The left ventricle is moderately dilated. Left ventricular systolic function is severely reduced. The ejection fraction is estimated to be 20-25%. Left ventricular systolic function has slightly improved compared to the previous exam. There is severe global hypokinesis of the left ventricle. Diastolic function could not be accurately assessed due to confounding valvular disease. Right Ventricle: The right ventricle is moderately dilated. Right ventricular systolic function is borderline reduced. Atria: The left atrium is severely dilated. The right atrium is severely dilated. There is no Doppler evidence for an interatrial shunt. Mitral Valve: The mitral valve leaflets appear moderately thickened, but open well. A mitral valve clip is present. There is moderate mitral regurgitation. There are multiple regurgitant jets present. Compared to the prior echo study, there has been a decrease in the severity of mitral regurgitation. Aortic Valve: The aortic valve is trileaflet. There is minimally reduced leaflet mobility. The aortic valve is slightly calcified. There is moderate aortic valve sclerosis. There is no aortic valve stenosis. There is trace aortic regurgitation. Tricuspid Valve: The tricuspid valve leaflets are thickened and/or calcified, but open well. There is tricuspid annular calcification. There is mild to moderate tricuspid regurgitation. The right ventricular systolic pressure is estimated to be at least 39 mmHg based on an estimated right atrial pressure of 3 mm Hg. This is decreased compared to the previous study. Compared to the prior echo exam, there has been a decrease in TR severity. Pulmonic Valve: There is mild to moderate pulmonic regurgitation. Great Vessels: The aortic root is normal size. The dimensions of the ascending aorta are normal. The IVC is of normal diameter and collapses greater than 50% with a sniff. This suggests a low right atrial pressure of 3 mm Hg. Pericardium/ Pleura: There is no pericardial effusion. There is no pleural effusion. 2D and M-Mode Measurements and Calculations LVIDd: 6.9 cm LVOT diam: 2.11 cm LVIDs: 6.2 cm Ao root diam: 3.4 cm IVSd: 0.93 cm asc Aorta Diam: 3.5 cm LVPWd: 0.46 cm Ao Arch Diam (Prox Trans): 2.9 cm LV alvares. diameter/BSA (cm/m^2): 3.9 LV sys. diameter/BSA (cm/m^2): 3.5 RVD1 (basal): 4.8 cm IVC diam: 1.92 cm RVD2 (mid): 3.6 cm TAPSE: 1.52 cm LA A4 area: 38.3 postal service window clerk? RA area: 31.1 postal service window clerk? LA A2 area: 35.9 postal service window clerk? RA long axis: 6.3 cm LA length (vol): 7.8 cm RA vol: 130.1 ml LA vol: 148.8 ml RA : 72.7 ml/mA? LA vol index: 83.2 ml/mA? Doppler Measurements and Calculations Ao V2 max: 151.6 cm/sec LVOT Max Maksim: 55.8 cm/sec Ao V2 mean: 112.2 cm/sec LV V1 max P.25 mmHg Ao V2 VTI: 24.5 cm LV V1 VTI: 8.7 cm Ao max P.2 mmHg Ao mean P.5 mmHg LOUISA(I,D): 1.24 postal service window clerk? LOUISA(V,D): 1.29 postal service window clerk? LOUISA indexed to BSA (cm^2/m^2): 0.69 sev ratio: 0.35 AI P1/2t: 640.0 msec AI dec slope: 177.9 cm/secA? MV E max maksim: 130.4 cm/sec MV dec time: 0.27 sec MV A max maksim: 2.7 cm/sec MV mean P.8 mmHg MV E/A: 47.6 MVA(VTI): 1.09 postal service window clerk? Med Peak E' Maksim: 5.5 cm/sec Lat Peak E' Maksim: 7.1 cm/sec E/e' average: 21.1 TR max maksim: 299.5 cm/sec PA mean P.28 mmHg TR max P.9 mmHg PA V2 max: 79.5 cm/sec Manuel Fountain Electronically signed by: Manuel Fountain 07/25/2021, 12: 15 PM
== END ==
PROVIDERS: PCP Internal Medicine; Referring Provider Internal Medicine Cardiovascular Disease; Visit Provider Internal Medicine Cardiovascular Disease
DX: I08.3 Combined rheumatic disorders of mitral, aortic and tricuspid valves
CPT/HCPCS: 93306

== ENCOUNTER → 2021-08-21 12:11 | Outpatient (CLI) | payer MEDICARE, SELFPAY ==
--- NOTE | 2021-08-21 12:15 | DI.RAD.S_ITS ---
PROCEDURE: XR CHEST 2V INDICATIONS: chronic cough, blood tinged sputum TECHNIQUE: 2 views of the chest were acquired. COMPARISON: None. FINDINGS: Surgical changes and devices: Pacemaker. Lungs and pleura: Mild increased pulmonary vascularity. Mediastinum: Mediastinal contours are normal. Heart size is enlarged. Bones and chest wall: No suspicious bony abnormalities. Soft tissues appear unremarkable. IMPRESSION: Mild increased vascularity suggestive of edema. Dictated by: Joyce Mcgovern M.D. on 08/21/2021 at 12:28 Approved by: Joyce Mcgovern M.D. on 08/21/2021 at 12:29
[2021-08-21 13:10] LABS: Alanine Aminotransferase 28 IU/L (<50); Albumin Globulin Ratio 1.6 (1.0-2.8); Alkaline Phosphatase 56 U/L (38-126); Aspartate Aminotransferase 35 IU/L (17-59); Bilirubin Total 1.1 mg/dL (0.2-1.3); Blood Urea Nitrogen 29 mg/dL (9-20); Calcium 10.2 mg/dL (8.4-10.2); Carbon Dioxide 27 mmol/L (22-32); Chloride 100 mmol/L (98-107); Estimated Glomerular Filt Rate 54 mL/min (>60); Globulin 3.2 g/dL (1.7-4.1); Glucose 131 mg/dL (80-110); HEMOLYSIS < 15 (0-50); Potassium 5.2 mmol/L (3.4-5.1); Sodium 138 mmol/L (137-145); Total Protein 8.2 g/dL (6.3-8.2)
[2021-08-21 13:14] LABS: NT-proBNP (BNP-Adult 18+) 2990 pg/mL (<450)
== END ==
PROVIDERS: PCP Internal Medicine; Referring Provider Internal Medicine Cardiovascular Disease; Visit Provider Internal Medicine Cardiovascular Disease
DX: I10 Essential (primary) hypertension (principal); I51.9 Heart disease, unspecified; E11.9 Type 2 diabetes mellitus without complications; R04.2 Hemoptysis
CPT/HCPCS: 36415; 71046; 80053; 83880

== ENCOUNTER → 2021-10-09 15:04 | Outpatient (CLI) | payer MEDICARE, SELFPAY ==
[2021-10-09 16:38] LABS: BUN Creatinine Ratio 26.4 (6-22); Blood Urea Nitrogen 37 mg/dL (9-20); Calcium 9.6 mg/dL (8.4-10.2); Carbon Dioxide 25 mmol/L (22-32); Chloride 103 mmol/L (98-107); Estimated Glomerular Filt Rate 50 mL/min (>60); Glucose 100 mg/dL (80-110); HEMOLYSIS < 15 (0-50); Potassium 4.7 mmol/L (3.4-5.1); Sodium 138 mmol/L (137-145)
[2021-10-10 06:26] LABS: Hemoglobin A1C% w Est Avg Glu 6.9 % (4.0-6.0)
[2021-10-10 12:29] LABS: Calcium 9.8 mg/dL (8.6-10.2); Parathyroid Hormone, Intact 31 pg/mL (15-65)
== END ==
PROVIDERS: PCP Internal Medicine; Referring Provider Internal Medicine; Visit Provider Internal Medicine
DX: E11.59 Type 2 diabetes mellitus with other circulatory complications (principal); I50.22 Chronic systolic (congestive) heart failure; N18.31 Chronic kidney disease, stage 3a
CPT/HCPCS: 36415; 80048; 82310; 83036; 83970

== ENCOUNTER 2021-10-24 13:21 | Emergency (ER) | payer MEDICARE, SELFPAY ==
[2021-10-24 13:50] VITALS: BP 116/59; PULSE 75; RESP 14; TEMP 36.3; O2SAT 97; BMI 22.5
--- NOTE | 2021-10-24 16:49 | DI.RAD.S_ITS ---
PROCEDURE: XR CHEST 1V INDICATIONS: chest pain TECHNIQUE: One view of the chest was acquired. COMPARISON: [facility], CR, XR CHEST 2V, 08/21/2021, 12:09. FINDINGS: Surgical changes and devices: An AICD is seen. The leads are seen in stable positions. Lungs and pleura: An incomplete inspiratory result is noted, causing a crowded appearance to the lung markings. No focal infiltrates are seen. No pneumothorax or significant pleural effusions are seen. Mediastinum: The cardiac contours are moderately enlarged. The aorta demonstrates calcification and tortuosity. Bones and chest wall: No suspicious bony lesions. Age-appropriate bony degenerative changes are seen. S-shaped scoliotic curvature is seen. Overlying soft tissues appear unremarkable. IMPRESSION: Moderate cardiomegaly. Clear lungs. Postoperative and degenerative changes are seen. Dictated by: Sj Butler M.D. on 10/24/2021 at 16:09 Approved by: Sj Butler M.D. on 10/24/2021 at 16:10
[2021-10-24 16:57] VITALS: PULSE 75; RESP 20; O2SAT 99
[2021-10-24 16:58] VITALS: BP 129/78; PULSE 75; RESP 32; O2SAT 99
[2021-10-24 17:00] VITALS: BP 126/77; PULSE 75; RESP 34; O2SAT 99
[2021-10-24 17:09] LABS: Add Manual Diff / Slide Review NO; Basophils Absolute Auto 0 /uL (0-100); Basophils Percent Auto 0.7 % (0-2); Eosinophils Absolute Auto 100 /uL (0-450); Eosinophils Percent Auto 1.1 % (2-4); Hematocrit 39.8 % (41-53); Hemoglobin 13.3 g/dL (13.5-17.5); Lymphocytes Absolute Auto 800 /uL (1100-4500); Lymphocytes Percent Auto 12.5 % (25-40); Mean Corpuscular HGB Conc 33.5 % (30-36); Mean Corpuscular Hemoglobin 28.8 PG (26-34); Mean Corpuscular Volume 86.1 fL (80-100); Monocytes Absolute Auto 900 /uL (0-900); Monocytes Percent Auto 14.3 % (3-14); Neutrophils Absolute Auto 4500 /uL (1500-7000); Neutrophils Percent Auto 71.4 % (50-75); Platelet Count 150 X10^3/uL (150-400); Red Blood Cell Count 4.62 X10^6/uL (4.5-5.9); Red Cell Distribution Width 16.4 % (11.6-14.8); White Blood Cell Count 6.4 X10^3/uL (4.5-11.0)
--- NOTE | 2021-10-24 17:09 | ED_ITS ---
HPI - Male Genitourinary <Jovita Dawkins [facility] - Last Filed: 10/24/21 20:16> General Chief complaint: Urogenital-Male Stated complaint: Groin pain, no known injury, woke up in pain Time Seen by Provider: 10/24/21 16:57 Source: patient Mode of arrival: Ambulatory History of Present Illness HPI Narrative: This is an 81-year-old male with history of atrial fibrillation pacemaker who is chronically anticoagulated on warfarin history also of systolic CHF, hypertension, type 2 diabetes, who presents to the emergency department with right groin pain which he reports as severe in nature and it started this morning. He endorses a history of varicose veins in his right groin, states that he has had multiple right femoral artery catheterizations from his cardiac procedures but denies any abdominal surgeries in the past. He endorses pain to the right of his scrotum which radiates down his leg and into his right pelvic region and states it is deep to the varicose veins. He denies any dysuria, urinary retention, dribbling, hematuria, or foul odor of his urine. He denies any flank pain, nausea vomiting, shortness of breath or fever. He denies any other pain in any other extremity, denies any weakness, sensation changes, swelling of his lower extremities that has been new or other known problem. Related Data Home Medications Medication Instructions Recorded Confirmed ascorbic acid (vitamin C) 1,000 mg 1,000 mg PO DAILY 07/10/21 10/25/21 tablet bisoprolol fumarate 5 mg tablet 5 mg PO TID #0 tabs 07/10/21 10/25/21 bumetanide 0.5 mg tablet 0.5 mg PO DAILY 07/10/21 10/25/21 cholecalciferol (vitamin D3) 25 25 mcg PO DAILY 07/10/21 10/25/21 mcg (1,000 unit) capsule colchicine 0.6 mg capsule 1.2 mg PO PRN 07/10/21 10/25/21 digoxin 125 mcg (0.125 mg) tablet 125 mcg PO DAILY #0 tabs 07/10/21 10/25/21 (Lanoxin) magnesium oxide 500 mg capsule 500 mg PO DAILY 07/10/21 10/25/21 omeprazole 20 mg tablet,delayed 20 mg PO DAILY #0 tabs 07/10/21 10/25/21 release rosuvastatin 20 mg tablet 20 mg PO DAILY 07/10/21 10/25/21 spironolactone 25 mg tablet 12.5 mg PO QDAY ##0 07/10/21 10/25/21 (Aldactone) warfarin 2 mg tablet (Coumadin) See Rx Instructions PO DAILY #0 07/22/21 10/25/21 tabs empagliflozin 10 mg tablet 10 mg PO DAILY 10/09/21 10/25/21 (Jardiance) Previous Rx's Medication Instructions Recorded triamcinolone acetonide 0.1 % See Rx Instructions topical DAILY 10/09/21 topical cream PRN Rash on arms #30 grams diclofenac sodium 1 % topical gel 2 g topical QID #100 grams 10/24/21 hydrocodone 5 mg-acetaminophen 325 1 tab PO Q8H PRN pain #10 tabs 10/24/21 mg tablet Allergies Allergy/AdvReac Type Severity Reaction Status Date / Time fluconazole [FLUCONAZOLE] Allergy Mild RASH Verified 10/25/21 13:40 itraconazole [From SPORANOX] Allergy Unknown Verified 10/25/21 13:40 clopidogrel [From Plavix] Allergy Rash Verified 10/25/21 13:40 Review of Systems <JIMMY Levy - Last Filed: 10/24/21 20:16> Review of Systems Narrative: General: denies fever, chills Head/Neck: denies headache, neck pain Eyes: denies visual changes, eye pain Cardio: denies chest pain, palpitations Respiratory: denies shortness of breath, cough GI: denies abdominal pain, nausea, vomiting, or diarrhea : denies dysuria, hematuria or flank pain, endorses right groin pain, denies any urinary problems MSK: denies new joint pain, muscle weakness or swelling Skin: denies rash, itching or wound Neuro: denies numbness, tingling, dizziness Patient History <JIMMY Levy - Last Filed: 10/24/21 20:16> Medical History (Updated 10/25/21 @ 14:43 by Danial Estevez MD) Arrhythmia Atrial fibrillation (~2013) Chicken pox (~1947) Chronic atrial fibrillation Colon polyps (~2015) Coronary artery disease (~2013) Diverticular disease Eczematous dermatitis Essential hypertension GERD without esophagitis Gout (~2011) Measles Mixed hyperlipidemia (~2013) Mumps (~194) Osteoarthritis of right hip Skin cancer (~2008) Stage 3a chronic kidney disease (CKD) Systolic CHF, chronic (~2013) Type 2 diabetes mellitus with cardiac complication (~2016) Vertigo (~2013) Surgical History Anesthesia Cardiac defibrillator in place (~2015) History of varicose vein ligation (~1997) Pacemaker (~2013) S/P coronary artery stent placement (~2020) S/P mitral valve clip implantation (~2020) Family History Father History of heart disease Mother Multiple sclerosis Grandfather Cancer Social History Smoking Status: Never smoker Smoking Status: Never smoker Substance Use Type: does not use Exam <JIMMY Levy - Last Filed: 10/24/21 20:16> Narrative Exam Narrative: Independently reviewed vitals signs and nursing notes. General: cooperative, comfortable, in no acute distress, well groomed Head: atraumatic, symmetrical facial expressions Neck: supple Eyes: equal round and reactive, EOMI, conjunctiva normal Nose: nares patent, no rhinorrhea Mouth/Throat: moist mucus membranes Cardiovascular: regular rate and rhythm, no peripheral edema, warm extremities Respiratory: normal effort, able to speak in complete sentences, no audible wheezing, stridor, or rales. No retractions or tachypnea. GI: abdomen soft, nondistended, tenderness to the right of his scrotum, no tenderness on his upper right thigh, without guarding or rebound. MSK: moves all extremities, neurovascularly intact, no weakness, normal tone Skin: brisk capillary refill, no rash, no erythema Neuro: normal speech and cognition, A&O x3 Psych: mental status is grossly normal, congruent mood, normal affect, pleasant and cooperative Initial Vital Signs Initial Vital Signs: Vital Signs Temperature 97.4 F L 10/24/21 13:50 Pulse Rate 75 10/24/21 13:50 Respiratory Rate 14 10/24/21 13:50 Blood Pressure 116/59 L 10/24/21 13:50 Pulse Oximetry 97 10/24/21 13:50 Oxygen Delivery Method 10/24/21 13:50 <Yasmine Ramos DO - Last Filed: 10/31/21 21:29> Initial Vital Signs Initial Vital Signs: Vital Signs Temperature 97.4 F L 10/24/21 13:50 Pulse Rate 75 10/24/21 13:50 Respiratory Rate 14 10/24/21 13:50 Blood Pressure 116/59 L 10/24/21 13:50 Pulse Oximetry 97 10/24/21 13:50 Oxygen Delivery Method 10/24/21 13:50 Course <JIMMY Levy - Last Filed: 10/24/21 20:16> Orders Ordered: Discontinued Medications Acetaminophen (Acetaminophen 325 Mg Tablet) 650 mg PO NOW ONE Stop: 10/24/21 17:12 Last Admin: 10/24/21 17:57 Dose: 650 mg Documented By: OLIVERIO Hydrocodone Bitart/Acetaminophen (Hydrocodone/Acet 5/325 Tablet) 1 tab PO NOW ONE Stop: 10/24/21 17:12 Last Admin: 10/24/21 17:57 Dose: 1 tab Documented By: OLIVERIO Vital Signs Vital signs: Vital Signs - 8 hr 10/24/21 13:50 10/24/21 16:57 10/24/21 16:58 Temperature 97.4 F L Pulse Rate 75 75 75 Respiratory Rate 14 20 32 H Blood Pressure 116/59 L Pulse Oximetry 97 99 99 Oxygen Delivery Method Room Air 10/24/21 16:58 10/24/21 17:00 10/24/21 17:00 Temperature Pulse Rate 75 Respiratory Rate 34 H Blood Pressure 129/78 126/77 Pulse Oximetry 99 Oxygen Delivery Method <Yasmine Ramos DO - Last Filed: 10/31/21 21:29> Orders Ordered: Discontinued Medications Acetaminophen (Acetaminophen 325 Mg Tablet) 650 mg PO NOW ONE Stop: 10/24/21 17:12 Last Admin: 10/24/21 17:57 Dose: 650 mg Documented By: OLIVERIO Hydrocodone Bitart/Acetaminophen (Hydrocodone/Acet 5/325 Tablet) 1 tab PO NOW ONE Stop: 10/24/21 17:12 Last Admin: 10/24/21 17:57 Dose: 1 tab Documented By: OLIVERIO Vital Signs Vital signs: Vital Signs - 8 hr 10/24/21 13:50 10/24/21 16:57 10/24/21 16:58 Temperature 97.4 F L Pulse Rate 75 75 75 Respiratory Rate 14 20 32 H Blood Pressure 116/59 L Pulse Oximetry 97 99 99 Oxygen Delivery Method Room Air 10/24/21 16:58 10/24/21 17:00 10/24/21 17:00 Temperature Pulse Rate 75 Respiratory Rate 34 H Blood Pressure 129/78 126/77 Pulse Oximetry 99 Oxygen Delivery Method MDM - Male Genitourinary <JIMMY Levy - Last Filed: 10/24/21 20:16> Lab Data Result diagrams: 10/24/21 16:55 10/24/21 16:55 Labs: Lab Results 10/24/21 10/24/21 10/24/21 Range/Units 16:55 16:55 16:55 WBC 6.4 (4.5-11.0) X10^3/uL RBC 4.62 (4.5-5.9) X10^6/uL Hgb 13.3 L (13.5-17.5) g/dL Hct 39.8 L (41-53) % MCV 86.1 (80-100) fL MCH 28.8 (26-34) PG MCHC 33.5 (30-36) % RDW 16.4 H (11.6-14.8) % Plt Count 150 (150-400) X10^3/uL Neut % (Auto) 71.4 (50-75) % Lymph % (Auto) 12.5 L (25-40) % [place] % (Auto) 14.3 H (3-14) % Eos % (Auto) 1.1 L (2-4) % Baso % (Auto) 0.7 (0-2) % Neut # (Auto) 4500 (6456-9073) /uL Lymph # (Auto) 800 L (1910-9072) /uL [place] # (Auto) 900 (0-900) /uL Eos # (Auto) 100 (0-450) /uL Baso # (Auto) 0 (0-100) /uL PT (10.1-12.7) SECONDS INR (0.9-1.3) Sodium 138 (137-145) mmol/L Potassium 4.0 (3.4-5.1) mmol/L Chloride 103 (98-107) mmol/L Carbon Dioxide 24 (22-32) mmol/L BUN 26 H (9-20) mg/dL Creatinine 1.29 H (0.66-1.25) mg/dL Estimated GFR 55 L (>60) mL/min BUN/Creatinine Ratio 20.2 (6-22) Glucose 135 H (80-110) mg/dL Calcium 9.4 (8.4-10.2) mg/dL Magnesium 2.3 (1.6-2.3) mg/dL Total Bilirubin 1.1 (0.2-1.3) mg/dL AST 28 (17-59) IU/L ALT 18 (<50) IU/L Alkaline Phosphatase 60 (38-126) U/L Total Creatine Kinase 61 (55-170) U/L CK-MB (CK-2) TNP CK-MB (CK-2) Rel Index TNP Troponin I < 0.012 (0.01-0.034) ng/mL NT-Pro-B Natriuret Pep 4420 H (<450) pg/mL Total Protein 7.7 (6.3-8.2) g/dL Albumin 4.6 (3.5-5.0) g/dL Globulin 3.1 (1.7-4.1) g/dL Albumin/Globulin Ratio 1.5 (1.0-2.8) Lipase 121 (23-300) U/L Urine Color Urine Appearance Urine pH (4.5-8.0) Ur Specific [place] (1.000-1.035) Urine Protein (Negative) Urine Glucose (UA) (Negative) g/dL Urine Ketones (NEGATIVE) Urine Occult Blood (Negative) Urine Nitrate (Negative) Urine Bilirubin (NEGATIVE) Urine Urobilinogen (0.2) E.U./dL Ur Leukocyte Esterase (NEGATIVE) Urine RBC (0-5/HPF) Urine WBC (0-5/HPF) Ur Squamous Epith Cells (0-5/HPF) Amorphous Sediment Urine Bacteria (None) Ur Culture Indicated? 10/24/21 10/24/21 Range/Units 16:55 18:44 WBC (4.5-11.0) X10^3/uL RBC (4.5-5.9) X10^6/uL Hgb (13.5-17.5) g/dL Hct (41-53) % MCV (80-100) fL MCH (26-34) PG MCHC (30-36) % RDW (11.6-14.8) % Plt Count (150-400) X10^3/uL Neut % (Auto) (50-75) % Lymph % (Auto) (25-40) % [place] % (Auto) (3-14) % Eos % (Auto) (2-4) % Baso % (Auto) (0-2) % Neut # (Auto) (0417-1798) /uL Lymph # (Auto) (5638-1988) /uL [place] # (Auto) (0-900) /uL Eos # (Auto) (0-450) /uL Baso # (Auto) (0-100) /uL PT 29.2 H (10.1-12.7) SECONDS INR 2.6 H (0.9-1.3) Sodium (137-145) mmol/L Potassium (3.4-5.1) mmol/L Chloride (98-107) mmol/L Carbon Dioxide (22-32) mmol/L BUN (9-20) mg/dL Creatinine (0.66-1.25) mg/dL Estimated GFR (>60) mL/min BUN/Creatinine Ratio (6-22) Glucose (80-110) mg/dL Calcium (8.4-10.2) mg/dL Magnesium (1.6-2.3) mg/dL Total Bilirubin (0.2-1.3) mg/dL AST (17-59) IU/L ALT (<50) IU/L Alkaline Phosphatase (38-126) U/L Total Creatine Kinase (55-170) U/L CK-MB (CK-2) CK-MB (CK-2) Rel Index Troponin I (0.01-0.034) ng/mL NT-Pro-B Natriuret Pep (<450) pg/mL Total Protein (6.3-8.2) g/dL Albumin (3.5-5.0) g/dL Globulin (1.7-4.1) g/dL Albumin/Globulin Ratio (1.0-2.8) Lipase (23-300) U/L Urine Color Yellow Urine Appearance Clear Urine pH 5.0 (4.5-8.0) Ur Specific [place] 1.015 (1.000-1.035) Urine Protein 2+ H (Negative) Urine Glucose (UA) 2+ H (Negative) g/dL Urine Ketones Negative (NEGATIVE) Urine Occult Blood 2+ H (Negative) Urine Nitrate Negative (Negative) Urine Bilirubin Negative (NEGATIVE) Urine Urobilinogen 0.2 (0.2) E.U./dL Ur Leukocyte Esterase Negative (NEGATIVE) Urine RBC 1-5/hpf (0-5/HPF) Urine WBC 0-1/hpf (0-5/HPF) Ur Squamous Epith Cells 0-1 /hpf (0-5/HPF) Amorphous Sediment 1+ Urine Bacteria None seen (None) Ur Culture Indicated? Cult not indicated Imaging Data US - HAND COKE DRAWER: Radiologist's Impression: PROCEDURE:? US SCROTUM ? INDICATIONS:? rt groin pain w/ varicose veins ? TECHNIQUE:? Real-time scanning was performed of the scrotum and testicles, with image documentation.? Color and pulse Doppler interrogation was performed of both testicles.? ? COMPARISON:? None. ? FINDINGS:? ? Right:? The right testicle measures 4.7 x 2.1 x 3.1 cm.? Echotexture is homogeneous.? There is normal arterial and venous flow.? No testicular mass.? There is a dilated vessel lateral to the right scrotal sac consistent with known varicose veins.? This is compressible.? Incidental appendix testes is noted. ? Left:? The left testicle measures 4.6 x 2.4 x 2.7 cm.? Echotexture is homog eneous.? There is normal arterial and venous flow.? No testicular mass.? Incidental appendix testes is noted. ? Doppler:? Color and pulse Doppler demonstrate normal and symmetric arterial flow in both testicles.? ? IMPRESSION:? 1. No acute testicular or scrotal abnormality. 2. Varicose vein lateral to the right scrotal sac with no thrombus.? ? ? Dictated by: Sukhi Duncan M.D. on 10/24/2021 at 18:34 ? ? Approved by: Sukhi Duncan M.D. on 10/24/2021 at 18:36 ? CT scan - abdomen/pelvis: Radiologist's Impression: PROCEDURE:? CT KIDNEY URETER BLADDER (KUB) ? INDICATIONS:? hematuria, rt groin pain, nephrolithiasis? groin abnormality ? TECHNIQUE:? Axial sections were acquired from the lung bases to the pubic symphysis.? Coronal and sagittal reformats were performed.? For radiation dose reduction, the following was used: ?automated exposure control, adjustment of mA and/or kV according to patient size.? ? COMPARISON:? None. ? FINDINGS: Image quality:? Excellent.? ? Lung bases:? Lung bases are clear.? Heart size is enlarged with pacer wires. ? Solid organs:? Liver: The liver has no mass or intrahepatic biliary ductal dilatation. The portal vein and hepatic veins are patent. Biliary: The gallbladder has no gallstones, pericholecystic fluid, gallbladder wall thickening, or surrounding inflammatory change. Pancreas: The pancreas has no mass or ductal dilatation. There is no surrounding inflammation. Spleen: Normal size. There are no masses. Adrenals: No hypertrophy or nodules. Kidneys: No obstructive calculus or hydronephrosis.? No solid mass. No cystic mass. ? Peritoneum and bowel:? Small hiatal hernia.? The distal esophagus and stomach are otherwise normal.? The small bowel has a normal caliber and appearance. The terminal ileum is normal. The large bowel has increased stool throughout consistent with constipation.? There is diverticulosis without evidence of diverticulitis..? The appendix is normal. No free fluid or air.? ? Nodes and vessels:? No retroperitoneal or mesenteric adenopathy by size criteria.? The aorta has atherosclerosis with no aneurysmal dilatation.? ? Miscellaneous:? No abdominal wall mass or hernia.? Prominent varices are noted in the right groin. ? PELVIS:? Genitourinary:? The bladder has no wall thickening or mass. No bladder calcifications. ? Bones:? The lumbar spine has severe dextroscoliosis and multilevel degenerative changes.? No vertebral body compression fractures.? ? IMPRESSION: 1. No acute abnormality of the abdomen or pelvis. 2. Constipation. 3. Diverticulosis without evidence of diverticulitis. 4. No nephroureterolithiasis or hydronephrosis. 5. Cardiomegaly.? 6. Prominent varices in the right groin.? Dictated by: Sukhi Duncan M.D. on 10/24/2021 at 19:53 ? ? Approved by: Sukhi Duncan M.D. on 10/24/2021 at 19:58 ? ECG Data Interpretation: EKG independently reviewed by reveals ventricular paced rhythm with regular axis and intervals. No STEMI, ST segment changes, arrhythmia, or acute ischemic changes. MDM Narrative Medical decision making narrative: This is an 81-year-old male with unspecified cardiac history but includes hypertension, type 2 diabetes, CHF, CAD, ventricular paced rhythm, atrial fibrillation and is on chronic anticoagulation with warfarin. Patient presents to the emergency department for deep right groin pain which is just to the right of his scrotum. He reports that the pain is deep to that, a scrotal ultrasound was obtained as patient has large varicose veins in this same area. Ultrasound of his scrotum was completed and shows no acute testicular or scrotal abnormality, varicose vein lateral to the right scrotal sac without any thrombus. Lab work is grossly unremarkable, patient does not have any leukocytosis, thrombocytopenia anemia, his INR today is 2.6 and his INR goal is from 2-3. No electrolyte abnormalities, creatinine is 1.29 which is improved from his prior of 1.4. Patient endorses that he recently had his bumetanide decreased due to a reduction in his GFR. His GFR in June of 2021 was 49, I suspect this is likely when his medication was changed. It has steadily gone up, today's GFR is 55. No elevation in his liver enzymes, his troponin is 0.012. His BNP is elevated today at 4420, his most recent the measured was on 08/21/2021 and was 2990. There are no other BNP values in his lab work. He does not have any shortness of breath, dyspnea, tachypnea, hypoxia, or any other respiratory symptom or complaint. He has been afebrile, denies any urinary problems, his urine today was negative for abnormality as well. CT KUB was ordered to evaluate for any nephrolithiasis, hydronephrosis, or other urogenital abnormality while also evaluating his colon for constipation. CT KUB shows no acute abnormality in the abdomen or pelvis, constipation is present throughout his colon, diverticulosis without evidence of diverticulitis, no nephroureterolithiasis or hydronephrosis, cardiomegaly, prominent varices in the right groin. Encourage patient to follow-up Could tell about his elevated BNP status post reduction of his budesonide for his GFR. This is most likely a groin strain, patient states that he thinks it could also be that. There is no free fluid or free air, no retroperitoneal or mesenteric adenopathy by size criteria. Discussed these findings with the patient, encouraged him to follow- up with Dr. Estevez and to try a stool softener and he states that it has been much more comfortable to have a bowel movement over the last few days than usual. No peritoneal signs on abdominal exam. Patient remains p.o. tolerant. Serial abdominal exam without increase in abdominal pain. Given history and exam, low suspicion for acute abdominal process, such as acute cholecystitis, pancreatitis, perforated viscus, atypical appendicitis, colitis, diverticulitis or torsion. Extensive conversation about ER return precautions and need for close follow-up. Patient is quite pleasant, without any signs of distress or concerning findings to keep him in the hospital for. Patient is appropriate and amenable to discharge home. Vital signs are stable on repeat examination is unremarkable. Patient has been informed of results. Patient has been given strict return to ER precautions for any new or worsening symptoms. Patient understands to follow up closely with outpatient providers as instructed. Patient understands plan and agrees to discharge home. All questions and concerns answered at this time. <Yasmine Ramos, DO - Last Filed: 10/31/21 21:29> Lab Data Labs: Lab Results 10/24/21 10/24/21 10/24/21 Range/Units 16:55 16:55 16:55 WBC 6.4 (4.5-11.0) X10^3/uL RBC 4.62 (4.5-5.9) X10^6/uL Hgb 13.3 L (13.5-17.5) g/dL Hct 39.8 L (41-53) % MCV 86.1 (80-100) fL MCH 28.8 (26-34) PG MCHC 33.5 (30-36) % RDW 16.4 H (11.6-14.8) % Plt Count 150 (150-400) X10^3/uL Neut % (Auto) 71.4 (50-75) % Lymph % (Auto) 12.5 L (25-40) % [place] % (Auto) 14.3 H (3-14) % Eos % (Auto) 1.1 L (2-4) % Baso % (Auto) 0.7 (0-2) % Neut # (Auto) 4500 (7352-1621) /uL Lymph # (Auto) 800 L (5309-2199) /uL [place] # (Auto) 900 (0-900) /uL Eos # (Auto) 100 (0-450) /uL Baso # (Auto) 0 (0-100) /uL PT (10.1-12.7) SECONDS INR (0.9-1.3) Sodium 138 (137-145) mmol/L Potassium 4.0 (3.4-5.1) mmol/L Chloride 103 (98-107) mmol/L Carbon Dioxide 24 (22-32) mmol/L BUN 26 H (9-20) mg/dL Creatinine 1.29 H (0.66-1.25) mg/dL Estimated GFR 55 L (>60) mL/min BUN/Creatinine Ratio 20.2 (6-22) Glucose 135 H (80-110) mg/dL Calcium 9.4 (8.4-10.2) mg/dL Magnesium 2.3 (1.6-2.3) mg/dL Total Bilirubin 1.1 (0.2-1.3) mg/dL AST 28 (17-59) IU/L ALT 18 (<50) IU/L Alkaline Phosphatase 60 (38-126) U/L Total Creatine Kinase 61 (55-170) U/L CK-MB (CK-2) TNP CK-MB (CK-2) Rel Index TNP Troponin I < 0.012 (0.01-0.034) ng/mL NT-Pro-B Natriuret Pep 4420 H (<450) pg/mL Total Protein 7.7 (6.3-8.2) g/dL Albumin 4.6 (3.5-5.0) g/dL Globulin 3.1 (1.7-4.1) g/dL Albumin/Globulin Ratio 1.5 (1.0-2.8) Lipase 121 (23-300) U/L Urine Color Urine Appearance Urine pH (4.5-8.0) Ur Specific [place] (1.000-1.035) Urine Protein (Negative) Urine Glucose (UA) (Negative) g/dL Urine Ketones (NEGATIVE) Urine Occult Blood (Negative) Urine Nitrate (Negative) Urine Bilirubin (NEGATIVE) Urine Urobilinogen (0.2) E.U./dL Ur Leukocyte Esterase (NEGATIVE) Urine RBC (0-5/HPF) Urine WBC (0-5/HPF) Ur Squamous Epith Cells (0-5/HPF) Amorphous Sediment Urine Bacteria (None) Ur Culture Indicated? 10/24/21 10/24/21 Range/Units 16:55 18:44 WBC (4.5-11.0) X10^3/uL RBC (4.5-5.9) X10^6/uL Hgb (13.5-17.5) g/dL Hct (41-53) % MCV (80-100) fL MCH (26-34) PG MCHC (30-36) % RDW (11.6-14.8) % Plt Count (150-400) X10^3/uL Neut % (Auto) (50-75) % Lymph % (Auto) (25-40) % [place] % (Auto) (3-14) % Eos % (Auto) (2-4) % Baso % (Auto) (0-2) % Neut # (Auto) (5976-5686) /uL Lymph # (Auto) (2507-3590) /uL [place] # (Auto) (0-900) /uL Eos # (Auto) (0-450) /uL Baso # (Auto) (0-100) /uL PT 29.2 H (10.1-12.7) SECONDS INR 2.6 H (0.9-1.3) Sodium (137-145) mmol/L Potassium (3.4-5.1) mmol/L Chloride (98-107) mmol/L Carbon Dioxide (22-32) mmol/L BUN (9-20) mg/dL Creatinine (0.66-1.25) mg/dL Estimated GFR (>60) mL/min BUN/Creatinine Ratio (6-22) Glucose (80-110) mg/dL Calcium (8.4-10.2) mg/dL Magnesium (1.6-2.3) mg/dL Total Bilirubin (0.2-1.3) mg/dL AST (17-59) IU/L ALT (<50) IU/L Alkaline Phosphatase (38-126) U/L Total Creatine Kinase (55-170) U/L CK-MB (CK-2) CK-MB (CK-2) Rel Index Troponin I (0.01-0.034) ng/mL NT-Pro-B Natriuret Pep (<450) pg/mL Total Protein (6.3-8.2) g/dL Albumin (3.5-5.0) g/dL Globulin (1.7-4.1) g/dL Albumin/Globulin Ratio (1.0-2.8) Lipase (23-300) U/L Urine Color Yellow Urine Appearance Clear Urine pH 5.0 (4.5-8.0) Ur Specific [place] 1.015 (1.000-1.035) Urine Protein 2+ H (Negative) Urine Glucose (UA) 2+ H (Negative) g/dL Urine Ketones Negative (NEGATIVE) Urine Occult Blood 2+ H (Negative) Urine Nitrate Negative (Negative) Urine Bilirubin Negative (NEGATIVE) Urine Urobilinogen 0.2 (0.2) E.U./dL Ur Leukocyte Esterase Negative (NEGATIVE) Urine RBC 1-5/hpf (0-5/HPF) Urine WBC 0-1/hpf (0-5/HPF) Ur Squamous Epith Cells 0-1 /hpf (0-5/HPF) Amorphous Sediment 1+ Urine Bacteria None seen (None) Ur Culture Indicated? Cult not indicated Discharge Plan Departure Patient Disposition: Home Clinical Impression: Deep groin pain, Elevated brain natriuretic peptide (BNP) level Instructions: Groin Strain Activity Restrictions/Additional Instructions: *You have been diagnosed with groin pain without clear reason as to why. Your urine does not show any infection, on microscopic exam there was no blood or leukocytes in your urine. Your CT of your abdomen shows that you might be mildly constipated any bladder is full but otherwise no gross abnormalities and everything looks equal bilaterally. Your BNP is elevated today, this is a marker of heart failure, please continue to take your diuretic in your other medications as they are scheduled. Please follow-up with your primary care provider since they did change your diuretic dose and your BNP has gone up since then. Please stay hydrated, this is most likely inflammation, could be a groin strain. Please use the Voltaren gel topically and see if this helps with your pain, avoid oral anti inflammatories like you already do. You can take a breakthrough pain pill as needed for your pain. Remember to stay hydrated and take a stool softener as needed if you are prone to constipation while taking pain pills. *What to do: *Please continue to take your regular medications as directed. [ x] New medication prescriptions sent to your pharmacy: [ [facility]] [ ] New medication written as a paper prescription [ ] No new medications given *Please follow up with your primary care provider in 2-3 days, call for an appointment. Let them know you were seen in the Emergency Department and that we asked that you be seen for follow-up. We will electronically transmit a record of today's note if your PCP is in our system *If you do not have a primary care provider please contact [phone] to establish care with one of the [facility] primary care providers. *Return to Emergency Department if you should have any new, worsening or concerning symptoms, such as [fever greater than 101F, chills, worsening pain, persistent vomiting or other bothersome symptoms] Prescriptions: New hydrocodone-acetaminophen 5-325 mg tablet 1 tab PO Q8H PRN (Reason: pain) Qty: 10 0RF diclofenac sodium 1 % gel 2 g topical QID Qty: 100 0RF Rx Instructions: Apply to area of pain up to 4 times daily No Action bisoprolol fumarate 5 mg tablet 5 mg PO TID Qty: 0 digoxin [Lanoxin] 125 mcg (0.125 mg) tablet 125 mcg PO DAILY Qty: 0 omeprazole 20 mg tablet,delayed release (DR/EC) 20 mg PO DAILY Qty: 0 spironolactone [Aldactone] 25 mg tablet 12.5 mg PO QDAY Qty: 0 warfarin [Coumadin] 2 mg tablet See Rx Instructions PO DAILY Qty: 0 Rx Instructions: 3mg Thursday, Thursday and 2mg all other days, or as directed bumetanide 0.5 mg tablet 0.5 mg PO DAILY colchicine 0.6 mg capsule 1.2 mg PO PRN Label Comments: Take 2 capsules by mouth now then 1 every 1-2 hours as needed for gout. Max 4 tablets/24 hours for 3 days magnesium oxide 500 mg capsule 500 mg PO DAILY ascorbic acid (vitamin C) 1,000 mg tablet 1,000 mg PO DAILY cholecalciferol (vitamin D3) 25 mcg (1,000 unit) capsule 25 mcg PO DAILY rosuvastatin 20 mg tablet 20 mg PO DAILY Jardiance 10 mg tablet 10 mg PO DAILY triamcinolone acetonide 0.1 % cream See Rx Instructions topical DAILY PRN (Reason: Rash on arms) Qty: 30 0RF Rx Instructions: 1 gram daily topically daily PRN; Referrals: Danial Estevez MD [Primary Care Provider] - Visit Report Forms: Patient Portal/API <Yasmine Ramos DO - Last Filed: 10/31/21 21:29> Cosign ED Attending Coskatherineature Attestation: I was immediately available in the department for consultation. Documentation has been reviewed.
--- NOTE | 2021-10-24 17:14 | DI.US.S_ITS ---
PROCEDURE: US SCROTUM INDICATIONS: rt groin pain w/ varicose veins TECHNIQUE: Real-time scanning was performed of the scrotum and testicles, with image documentation. Color and pulse Doppler interrogation was performed of both testicles. COMPARISON: None. FINDINGS: Right: The right testicle measures 4.7 x 2.1 x 3.1 cm. Echotexture is homogeneous. There is normal arterial and venous flow. No testicular mass. There is a dilated vessel lateral to the right scrotal sac consistent with known varicose veins. This is compressible. Incidental appendix testes is noted. Left: The left testicle measures 4.6 x 2.4 x 2.7 cm. Echotexture is homogeneous. There is normal arterial and venous flow. No testicular mass. Incidental appendix testes is noted. Doppler: Color and pulse Doppler demonstrate normal and symmetric arterial flow in both testicles. IMPRESSION: 1. No acute testicular or scrotal abnormality. 2. Varicose vein lateral to the right scrotal sac with no thrombus. Dictated by: Sukhi Duncan M.D. on 10/24/2021 at 18:34 Approved by: Sukhi Duncan M.D. on 10/24/2021 at 18:36
[2021-10-24 17:29] LABS: Alanine Aminotransferase 18 IU/L (<50); Albumin 4.6 g/dL (3.5-5.0); Albumin Globulin Ratio 1.5 (1.0-2.8); Alkaline Phosphatase 60 U/L (38-126); Aspartate Aminotransferase 28 IU/L (17-59); BUN Creatinine Ratio 20.2 (6-22); Bilirubin Total 1.1 mg/dL (0.2-1.3); Blood Urea Nitrogen 26 mg/dL (9-20); Calcium 9.4 mg/dL (8.4-10.2); Carbon Dioxide 24 mmol/L (22-32); Chloride 103 mmol/L (98-107); Creatine Kinase 61 U/L (55-170); Estimated Glomerular Filt Rate 55 mL/min (>60); Globulin 3.1 g/dL (1.7-4.1); Glucose 135 mg/dL (80-110); HEMOLYSIS < 15 (0-50); Lipase 121 U/L (23-300); Magnesium 2.3 mg/dL (1.6-2.3); Sodium 138 mmol/L (137-145); Total Protein 7.7 g/dL (6.3-8.2)
[2021-10-24 17:38] LABS: NT-proBNP (BNP-Adult 18+) 4420 pg/mL (<450)
[2021-10-24 17:40] LABS: Troponin I < 0.012 ng/mL (0.01-0.034)
[2021-10-24] MEDS: HYDROCODONE/ACET 5/325 TABLET 1 TAB PO (17:57)
[2021-10-24] MEDS: ACETAMINOPHEN 325 MG TABLET 650 MG PO (17:57)
[2021-10-24 18:49] LABS: Appearance Urine UA CLEAR; Bilirubin Urine UA NEGATIVE (NEGATIVE); Color Urine UA YELLOW; Glucose Urine UA 2+ g/dL (Negative); Ketones Urine UA NEGATIVE (NEGATIVE); Leukocyte Esterase Urine UA NEGATIVE (NEGATIVE); Nitrite Urine UA NEGATIVE (Negative); Occult Blood Urine UA 2+ (Negative); Protein Urine UA 2+ (Negative); Specific Gravity Urine UA 1.015 (1.000-1.035); Urobilinogen Urine UA 0.2 E.U./dL (0.2)
--- NOTE | 2021-10-24 18:51 | DI.CT.S_ITS ---
PROCEDURE: CT KIDNEY URETER BLADDER (KUB) INDICATIONS: hematuria, rt groin pain, nephrolithiasis? groin abnormality TECHNIQUE: Axial sections were acquired from the lung bases to the pubic symphysis. Coronal and sagittal reformats were performed. For radiation dose reduction, the following was used: automated exposure control, adjustment of mA and/or kV according to patient size. COMPARISON: None. FINDINGS: Image quality: Excellent. Lung bases: Lung bases are clear. Heart size is enlarged with pacer wires. Solid organs: Liver: The liver has no mass or intrahepatic biliary ductal dilatation. The portal vein and hepatic veins are patent. Biliary: The gallbladder has no gallstones, pericholecystic fluid, gallbladder wall thickening, or surrounding inflammatory change. Pancreas: The pancreas has no mass or ductal dilatation. There is no surrounding inflammation. Spleen: Normal size. There are no masses. Adrenals: No hypertrophy or nodules. Kidneys: No obstructive calculus or hydronephrosis. No solid mass. No cystic mass. Peritoneum and bowel: Small hiatal hernia. The distal esophagus and stomach are otherwise normal. The small bowel has a normal caliber and appearance. The terminal ileum is normal. The large bowel has increased stool throughout consistent with constipation. There is diverticulosis without evidence of diverticulitis.. The appendix is normal. No free fluid or air. Nodes and vessels: No retroperitoneal or mesenteric adenopathy by size criteria. The aorta has atherosclerosis with no aneurysmal dilatation. Miscellaneous: No abdominal wall mass or hernia. Prominent varices are noted in the right groin. PELVIS: Genitourinary: The bladder has no wall thickening or mass. No bladder calcifications. Bones: The lumbar spine has severe dextroscoliosis and multilevel degenerative changes. No vertebral body compression fractures. IMPRESSION: 1. No acute abnormality of the abdomen or pelvis. 2. Constipation. 3. Diverticulosis without evidence of diverticulitis. 4. No nephroureterolithiasis or hydronephrosis. 5. Cardiomegaly. 6. Prominent varices in the right groin. Dictated by: Sukhi Duncan M.D. on 10/24/2021 at 19:53 Approved by: Sukhi Duncan M.D. on 10/24/2021 at 19:58
[2021-10-24 18:55] LABS: Amorphous Sediment Urine 1+; Bacteria Urine None Seen; RBC Urine 1-5/HPF (0-5/HPF); Squamous Epithelial Cell Urine 0-1 /HPF (0-5/HPF); WBC Urine 0-1/HPF (0-5/HPF)
[2021-10-24 18:56] LABS: Culture Indicated Urine Cult Not Indicated
[2021-10-24 19:32] LABS: INR 2.6 (0.9-1.3); Prothrombin Time 29.2 SECONDS (10.1-12.7)
== END 2021-10-24 19:34 | disposition home or self-care (01) ==
PROVIDERS: Emergency Medicine; Emergency Provider Nurse Practitioner Critical Care Medicine; PCP Internal Medicine
DX: R10.30 Lower abdominal pain, unspecified (principal); R79.89 Other specified abnormal findings of blood chemistry; R31.9 Hematuria, unspecified; Z79.01 Long term (current) use of anticoagulants; Z95.0 Presence of cardiac pacemaker
CPT/HCPCS: 36415; 71045; 74176; 76870; 80053; 81001; 82550; 83690; 83735; 83880; 84484; 85025; 85610; 93005; 99283; 99284

== ENCOUNTER → 2022-01-21 15:13 | Outpatient (CLI) | payer MEDICARE, SELFPAY ==
[2022-01-21 16:39] LABS: BUN Creatinine Ratio 20.6 (6-22); Blood Urea Nitrogen 32 mg/dL (9-20); Calcium 9.9 mg/dL (8.4-10.2); Carbon Dioxide 26 mmol/L (22-32); Chloride 95 mmol/L (98-107); Estimated Glomerular Filt Rate 44 mL/min (>60); Glucose 200 mg/dL (80-110); HEMOLYSIS < 15 (0-50); Potassium 4.7 mmol/L (3.4-5.1); Sodium 134 mmol/L (137-145)
[2022-01-21 18:05] LABS: Digoxin 0.6 ng/mL (0.8-2.0)
== END ==
PROVIDERS: PCP Internal Medicine; Referring Provider Internal Medicine Cardiovascular Disease; Visit Provider Internal Medicine Cardiovascular Disease
DX: I50.9 Heart failure, unspecified (principal); Z51.81 Encounter for therapeutic drug level monitoring; Z79.899 Other long term (current) drug therapy
CPT/HCPCS: 36415; 80048; 80162

== ENCOUNTER → 2022-05-08 11:01 | Outpatient (CLI) | payer MEDICARE, SELFPAY ==
[2022-05-08 11:53] LABS: Hematocrit 41.1 % (41-53); Hemoglobin 13.2 g/dL (13.5-17.5); Mean Corpuscular Hemoglobin 26.6 PG (26-34); Platelet Count 162 X10^3/uL (150-400); Red Blood Cell Count 4.95 X10^6/uL (4.5-5.9); Red Cell Distribution Width 16.5 % (11.6-14.8)
[2022-05-08 12:07] LABS: Alanine Aminotransferase 26 IU/L (<50); Albumin 4.1 g/dL (3.5-5.0); Albumin Globulin Ratio 1.3 (1.0-2.8); Alkaline Phosphatase 97 U/L (38-126); Aspartate Aminotransferase 34 IU/L (17-59); BUN Creatinine Ratio 23.1 (6-22); Bilirubin Total 1.8 mg/dL (0.2-1.3); Blood Urea Nitrogen 31 mg/dL (9-20); Calcium 9.1 mg/dL (8.4-10.2); Carbon Dioxide 28 mmol/L (22-32); Chloride 95 mmol/L (98-107); Estimated Glomerular Filt Rate 53 mL/min (>60); Globulin 3.2 g/dL (1.7-4.1); Glucose 203 mg/dL (80-110); HEMOLYSIS < 15 (0-50); Hemoglobin A1C% w Est Avg Glu 7.4 % (4.0-6.0); Potassium 3.7 mmol/L (3.4-5.1); Sodium 137 mmol/L (137-145); Total Protein 7.3 g/dL (6.3-8.2)
[2022-05-09 15:12] LABS: Fecal Immunochemical Test Negative (Negative)
== END ==
PROVIDERS: PCP Internal Medicine; Referring Provider Internal Medicine Cardiovascular Disease; Visit Provider Internal Medicine Cardiovascular Disease
DX: I51.9 Heart disease, unspecified (principal); E11.59 Type 2 diabetes mellitus with other circulatory complications; I50.9 Heart failure, unspecified; I10 Essential (primary) hypertension; I50.22 Chronic systolic (congestive) heart failure; N18.31 Chronic kidney disease, stage 3a; Z12.11 Encounter for screening for malignant neoplasm of colon
CPT/HCPCS: 36415; 80053; 82274; 83036; 85027

== ENCOUNTER 2022-06-13 13:40 | Emergency (ER) | payer MEDICARE, SELFPAY ==
[2022-06-13] VITALS (15 sets, daily range): BP systolic 82–136; BP diastolic 51–78; PULSE 72–76; RESP 16–34; TEMP 36.2; O2SAT 94–99; BMI 23.1
--- NOTE | 2022-06-13 13:50 | DI.RAD.S_ITS ---
PROCEDURE: XR CHEST 1V INDICATIONS: chest pain TECHNIQUE: One view of the chest was acquired. COMPARISON: [facility], CR, XR CHEST 1V, 10/24/2021, 16:48. FINDINGS: Surgical changes and devices: Pacemaker Lungs and pleura: Lungs are clear. No pleural effusions or pneumothorax. Mediastinum: Mediastinal contours appear normal. Moderate to severe cardiomegaly. Bones and chest wall: No suspicious bony lesions. Overlying soft tissues appear unremarkable. IMPRESSION: Moderate to severe cardiomegaly. No evidence acute pulmonary process. Dictated by: Gui Blackman M.D. on 06/13/2022 at 14:31 Approved by: Gui Blackman M.D. on 06/13/2022 at 14:32
[2022-06-13 14:08] LABS: Add Manual Diff / Slide Review NO; Basophils Absolute Auto 100 /uL (0-100); Eosinophils Absolute Auto 100 /uL (0-450); Eosinophils Percent Auto 1.2 % (2-4); Hematocrit 40.7 % (41-53); Hemoglobin 13.2 g/dL (13.5-17.5); Lymphocytes Absolute Auto 1100 /uL (1100-4500); Lymphocytes Percent Auto 17.8 % (25-40); Mean Corpuscular HGB Conc 32.4 % (30-36); Mean Corpuscular Hemoglobin 26.3 PG (26-34); Mean Corpuscular Volume 80.9 fL (80-100); Monocytes Absolute Auto 800 /uL (0-900); Monocytes Percent Auto 13.7 % (3-14); Neutrophils Absolute Auto 4000 /uL (1500-7000); Neutrophils Percent Auto 66.3 % (50-75); Platelet Count 141 X10^3/uL (150-400); Red Blood Cell Count 5.03 X10^6/uL (4.5-5.9); White Blood Cell Count 6.1 X10^3/uL (4.5-11.0)
[2022-06-13 14:14] LABS: INR 3.2 (0.9-1.3); Prothrombin Time 37.3 SECONDS (10.1-12.7)
[2022-06-13 14:17] LABS: PTT Partial Thromboplastin Tim 44 SECONDS (26-36)
[2022-06-13 14:20] LABS: Alanine Aminotransferase 43 IU/L (<50); Albumin 4.4 g/dL (3.5-5.0); Albumin Globulin Ratio 1.4 (1.0-2.8); Alkaline Phosphatase 102 U/L (38-126); Aspartate Aminotransferase 53 IU/L (17-59); BUN Creatinine Ratio 25.7 (6-22); Bilirubin Total 2.4 mg/dL (0.2-1.3); Blood Urea Nitrogen 45 mg/dL (9-20); Carbon Dioxide 25 mmol/L (22-32); Chloride 90 mmol/L (98-107); Creatine Kinase 122 U/L (55-170); Estimated Glomerular Filt Rate 38 mL/min (>60); Globulin 3.2 g/dL (1.7-4.1); Glucose 136 mg/dL (80-110); HEMOLYSIS < 15 (0-50); Lipase 764 U/L (23-300); Magnesium 2.2 mg/dL (1.6-2.3); Potassium 3.8 mmol/L (3.4-5.1); Sodium 129 mmol/L (137-145); Total Protein 7.6 g/dL (6.3-8.2)
[2022-06-13 14:21] LABS: Lactate (Lactic Acid) 2.7 mmol/L (0.7-2.1)
[2022-06-13 14:32] LABS: NT-proBNP (BNP-Adult 18+) 3170 pg/mL (<450); Troponin I < 0.012 ng/mL (0.01-0.034)
[2022-06-13 14:35] LABS: CKMB % Relative Index 3.1 % (1.5-5.0); Creatine Kinase MB 3.74 ng/mL (<2.37)
[2022-06-13] MEDS: SODIUM CHLORIDE 0.9% 500 ML 1000 ML IV (15:00)
[2022-06-13 15:08] LABS: Adenovirus Not Detected (Not Detect); B. parapertussis Not Detected (Not Detecte); Bordetella pertussis Not Detected (Not Detecte); Chlamydophila pneumoniae Not Detected (Not Detect); Coronavirus 229E Not Detected (Not Detect); Coronavirus HKU1 Not Detected (Not Detect); Coronavirus NL 63 Not Detected (Not Detect); Coronavirus OC43 Not Detected (Not Detect); Human Metapneumovirus Not Detected (Not Detect); Human Rhinovirus/Enterovirus Not Detected (Not Detect); Influenza A Not Detected (Not Detect); Influenza B Not Detected (Not Detect); Mycoplasma pneumoniae Not Detected (Not Detect); Parainfluenza Virus 1 Not Detected (Not Detect); Parainfluenza Virus 2 Not Detected (Not Detect); Parainfluenza Virus 3 Not Detected (Not Detect); Parainfluenza Virus 4 Not Detected (Not Detect); Respiratory Syncytial Virus Not Detected (Not Detect); SARS- CoV-2 Not Detected (Not Detecte)
[2022-06-13 15:14] LABS: Procalcitonin 0.12 ng/mL (<0.5)
[2022-06-13 16:04] LABS: Reflexed Lactate in 2 Hours Y
--- NOTE | 2022-06-13 16:25 | ED.SOB ---
HPI - SOB/Dyspnea General Chief Complaint: Shortness of Breath/Dyspnea Stated Complaint: SOB/dizziness Time Seen by Provider: 06/13/22 16:24 Source: patient Mode of arrival: Ambulatory Limitations: no limitations History of Present Illness HPI Narrative: This is a 81-year-old male on warfarin with history of prior pacemaker, mitral clip and cardiac stents. Patient states that today he went for a walk got very dyspneic after about 200 or 300 yd. Patient states he has not been going for walks lately because his has dementia. This was his 1st walk-in quite some time. He states walking around the house he is not more dyspneic than normal. Patient denies fevers or chills. No chest pain or pressure. He felt a little dizzy earlier. He denies any syncope or near-syncope. No diaphoresis. His swelling in his legs is actually improved, no nausea or vomiting. He has had some mild constipation. No urinary symptoms. Patient notes his Bumex has been increased from 0.5 mg to 1 mg. He was bumped up to 2 mg for 3 days and is back down to 1 mg for his Bumex. Patient does follow with Dr. ricardo lucas for his hand worker and Dr. Jarrell for his primary care. He states he is on warfarin, Bumex, aspirin, bisoprolol, digoxin, Jardiance and rosuvastatin. He notes pacer placed in 2013, he is a cardiac stent and had a mitral valve clip about a year ago. He is scheduled for a echo in the next week. He states his only allergies or fluconazole. He denies tobacco, alcohol or illicit. Is the primary caregiver for his who has dementia. He states he is in process of getting her into [facility] memory care which he think will be helpful so he can be more active. Today he was able to go for a walk for the 1st time in a long time because he had a caregiver for his . Related Data Home Medications Medication Instructions Recorded Confirmed ascorbic acid (vitamin C) 1,000 mg 1,000 mg PO DAILY 07/10/21 04/28/22 tablet bisoprolol fumarate 5 mg tablet 5 mg PO TID #0 tabs 07/10/21 04/28/22 cholecalciferol (vitamin D3) 25 25 mcg PO DAILY 07/10/21 04/28/22 mcg (1,000 unit) capsule colchicine 0.6 mg capsule 1.2 mg PO PRN 07/10/21 04/28/22 digoxin 125 mcg (0.125 mg) tablet 125 mcg PO DAILY #0 tabs 07/10/21 04/28/22 (Lanoxin) magnesium oxide 500 mg capsule 500 mg PO DAILY 07/10/21 04/28/22 spironolactone 25 mg tablet 12.5 mg PO QDAY ##0 07/10/21 04/28/22 (Aldactone) warfarin 2 mg tablet (Coumadin) See Rx Instructions PO DAILY #0 07/22/21 04/28/22 tabs empagliflozin 25 mg tablet 25 mg PO DAILY 04/28/22 04/28/22 (Jardiance) Previous Rx's Medication Instructions Recorded triamcinolone acetonide 0.1 % See Rx Instructions topical DAILY 10/09/21 topical cream PRN Rash on arms #30 grams diclofenac sodium 1 % topical gel 2 g topical QID #100 grams 10/24/21 mupirocin 2 % topical ointment See Rx Instructions topical BID 12/19/21 #22 grams rosuvastatin 20 mg tablet 20 mg PO DAILY #90 tabs 04/11/22 bumetanide 1 mg tablet 1 mg PO DAILY #90 tabs 04/30/[address]ing Permit 1 ea Not Applicable DAILY #1 ea 05/02/22 trazodone 50 mg tablet 25 - 50 mg PO BEDTIME PRN sleep 05/26/22 #60 tabs omeprazole 20 mg tablet,delayed 20 mg PO DAILY #90 tabs 06/04/22 release Allergies Allergy/AdvReac Type Severity Reaction Status Date / Time fluconazole [FLUCONAZOLE] Allergy Mild RASH Verified 06/13/22 13:50 itraconazole [From SPORANOX] Allergy Unknown Verified 06/13/22 13:50 clopidogrel [From Plavix] Allergy Rash Verified 06/13/22 13:50 Review of Systems Review of Systems ROS Unobtainable: All systems reviewed & are unremarkable except as noted in HPI and below Patient History Medical History Allergic rhinitis Arrhythmia Chicken pox (~1947) Chronic atrial fibrillation Colon polyps (~2015) Coronary artery disease (~2013) Diverticular disease Eczematous dermatitis Essential hypertension GERD without esophagitis Gout (~2011) Measles Mixed hyperlipidemia (~2013) Mumps (~194) Osteoarthritis of right hip Skin cancer (~2008) Stage 3a chronic kidney disease (CKD) Systolic CHF, chronic (~2013) Type 2 diabetes mellitus with cardiac complication (~2016) Vertigo (~2013) Surgical History Anesthesia Cardiac defibrillator in place (~2015) History of varicose vein ligation (~1997) Pacemaker (~2013) S/P coronary artery stent placement (~2020) S/P mitral valve clip implantation (~2020) Family History Father History of heart disease Mother Multiple sclerosis Grandfather Cancer Social History Smoking Status: Never smoker Smoking Status: Never smoker alcohol intake frequency: 0-2 drinks per day Substance Use Type: does not use Exam Narrative Exam Narrative: GENERAL: Alert and oriented x three, elderly male in mild distress. HEENT: Head normocephalic, atraumatic, EOMI, pupils reactive, face symmetric, moist mucous membranes NECK: Supple, full range of motion CARDIOVASCULAR: Regular rate and rhythm without murmurs, rubs or gallops. No JVD. RESPIRATORY: Breath sounds equal bilaterally, no wheezes rales or rhonchi. No tachypnea. Speaks in full sentences. ABDOMEN: Soft, nontender. Normoactive bowel sounds all 4 quadrants. No guarding or rebound, rigidity, no mass : No CVA tenderness EXTREMITIES: Normal range of motion, no clubbing. Bilateral mild edema lower extremities. Neurovascularly intact NEUROLOGICAL: Cranial nerves II through XII grossly intact. Moving all extremities SKIN: Warm, dry, no petechiae, no rashes or lesions. Initial Vital Signs Initial Vital Signs: Vital Signs Temperature 97.1 F L 06/13/22 13:46 Pulse Rate 72 06/13/22 13:46 Respiratory Rate 20 06/13/22 13:46 Blood Pressure 91/61 06/13/22 13:46 Pulse Oximetry 99 06/13/22 13:46 Oxygen Delivery Method Room Air 06/13/22 13:46 Course Orders Ordered: Discontinued Medications Sodium Chloride (Normal Saline 0.9%) 500 mls @ 1,000 mls/hr IV BOLUS ONE Stop: 06/13/22 14:58 Last Infusion: 06/13/22 16:52 Dose: 0 mls/hr Documented By: Admin: 06/13/22 15:00 Dose: 1,000 mls/hr Documented By: NR Vital Signs Vital signs: Vital Signs - 8 hr 06/13/22 13:46 06/13/22 14:22 06/13/22 14:26 Temperature 97.1 F L Pulse Rate 72 75 75 Respiratory Rate 20 16 34 H Blood Pressure 91/61 Pulse Oximetry 99 99 Oxygen Delivery Method Room Air 06/13/22 14:26 06/13/22 14:29 06/13/22 14:29 Temperature Pulse Rate 75 Respiratory Rate 20 Blood Pressure 97/59 L 136/78 Pulse Oximetry 98 Oxygen Delivery Method 06/13/22 14:30 06/13/22 14:30 06/13/22 14:36 Temperature Pulse Rate 75 Respiratory Rate 27 H Blood Pressure 135/77 102/58 L Pulse Oximetry 99 Oxygen Delivery Method 06/13/22 14:36 Temperature Pulse Rate 75 Respiratory Rate 23 Blood Pressure Pulse Oximetry 95 Oxygen Delivery Method MDM - SOB/Dyspnea Lab Data 06/13/22 14:00 06/13/22 14:00 Labs: Lab Results 06/13/22 06/13/22 06/13/22 Range/Units 14:00 14:00 14:00 WBC 6.1 (4.5-11.0) X10^3/uL RBC 5.03 (4.5-5.9) X10^6/uL Hgb 13.2 L (13.5-17.5) g/dL Hct 40.7 L (41-53) % MCV 80.9 (80-100) fL MCH 26.3 (26-34) PG MCHC 32.4 (30-36) % RDW 18.0 H (11.6-14.8) % Plt Count 141 L (150-400) X10^3/uL Neut % (Auto) 66.3 (50-75) % Lymph % (Auto) 17.8 L (25-40) % [place] % (Auto) 13.7 (3-14) % Eos % (Auto) 1.2 L (2-4) % Baso % (Auto) 1.0 (0-2) % Neut # (Auto) 4000 (0113-1716) /uL Lymph # (Auto) 1100 (5919-5714) /uL [place] # (Auto) 800 (0-900) /uL Eos # (Auto) 100 (0-450) /uL Baso # (Auto) 100 (0-100) /uL PT 37.3 H (10.1-12.7) SECONDS INR 3.2 H (0.9-1.3) APTT 44 H (26-36) SECONDS Sodium 129 L (137-145) mmol/L Potassium 3.8 (3.4-5.1) mmol/L Chloride 90 L (98-107) mmol/L Carbon Dioxide 25 (22-32) mmol/L BUN 45 H (9-20) mg/dL Creatinine 1.75 H (0.66-1.25) mg/dL Estimated GFR 38 L (>60) mL/min BUN/Creatinine Ratio 25.7 H (6-22) Glucose 136 H (80-110) mg/dL Lactate (0.7-2.1) mmol/L Calcium 9.0 (8.4-10.2) mg/dL Magnesium 2.2 (1.6-2.3) mg/dL Total Bilirubin 2.4 H (0.2-1.3) mg/dL AST 53 (17-59) IU/L ALT 43 (<50) IU/L Alkaline Phosphatase 102 (38-126) U/L Total Creatine Kinase 122 (55-170) U/L CK-MB (CK-2) 3.74 H (<2.37) ng/mL CK-MB (CK-2) Rel Index 3.1 (1.5-5.0) % Troponin I < 0.012 (0.01-0.034) ng/mL NT-Pro-B Natriuret Pep 3170 H (<450) pg/mL Total Protein 7.6 (6.3-8.2) g/dL Albumin 4.4 (3.5-5.0) g/dL Globulin 3.2 (1.7-4.1) g/dL Albumin/Globulin Ratio 1.4 (1.0-2.8) Lipase 764 H (23-300) U/L Procalcitonin (<0.5) ng/mL Digoxin (0.8-2.0) ng/mL Chlamy pneumoniae PCR (Not Detect) Adenovirus (PCR) (Not Detect) B. pertussis DNA (PCR) (Not Detecte) B.parapertussis DNA PCR (Not Detecte) Coronavirus OC43 (PCR) (Not Detect) Coronavirus HKU1 (PCR) (Not Detect) Coronavirus 229E (PCR) (Not Detect) SARS-CoV-2 (PCR) (Not Detecte) Coronavirus NL63 (PCR) (Not Detect) Human Metapneumovir PCR (Not Detect) Influenza Type A (PCR) (Not Detect) Influenza Type B (PCR) (Not Detect) M. pneumoniae (PCR) (Not Detect) Parainfluenza 1 (PCR) (Not Detect) Parainfluenza 2 (PCR) (Not Detect) Parainfluenza 3 (PCR) (Not Detect) Parainfluenza 4 (PCR) (Not Detect) RSV (PCR) (Not Detect) Entero/Rhino (PCR) (Not Detect) 06/13/22 06/13/22 06/13/22 Range/Units 14:00 14:00 14:00 WBC (4.5-11.0) X10^3/uL RBC (4.5-5.9) X10^6/uL Hgb (13.5-17.5) g/dL Hct (41-53) % MCV (80-100) fL MCH (26-34) PG MCHC (30-36) % RDW (11.6-14.8) % Plt Count (150-400) X10^3/uL Neut % (Auto) (50-75) % Lymph % (Auto) (25-40) % [place] % (Auto) (3-14) % Eos % (Auto) (2-4) % Baso % (Auto) (0-2) % Neut # (Auto) (0364-7720) /uL Lymph # (Auto) (6026-5744) /uL [place] # (Auto) (0-900) /uL Eos # (Auto) (0-450) /uL Baso # (Auto) (0-100) /uL PT (10.1-12.7) SECONDS INR (0.9-1.3) APTT (26-36) SECONDS Sodium (137-145) mmol/L Potassium (3.4-5.1) mmol/L Chloride (98-107) mmol/L Carbon Dioxide (22-32) mmol/L BUN (9-20) mg/dL Creatinine (0.66-1.25) mg/dL Estimated GFR (>60) mL/min BUN/Creatinine Ratio (6-22) Glucose (80-110) mg/dL Lactate 2.7 H (0.7-2.1) mmol/L Calcium (8.4-10.2) mg/dL Magnesium (1.6-2.3) mg/dL Total Bilirubin (0.2-1.3) mg/dL AST (17-59) IU/L ALT (<50) IU/L Alkaline Phosphatase (38-126) U/L Total Creatine Kinase (55-170) U/L CK-MB (CK-2) (<2.37) ng/mL CK-MB (CK-2) Rel Index (1.5-5.0) % Troponin I (0.01-0.034) ng/mL NT-Pro-B Natriuret Pep (<450) pg/mL Total Protein (6.3-8.2) g/dL Albumin (3.5-5.0) g/dL Globulin (1.7-4.1) g/dL Albumin/Globulin Ratio (1.0-2.8) Lipase (23-300) U/L Procalcitonin 0.12 (<0.5) ng/mL Digoxin (0.8-2.0) ng/mL Chlamy pneumoniae PCR Not detected (Not Detect) Adenovirus (PCR) Not detected (Not Detect) B. pertussis DNA (PCR) Not detected (Not Detecte) B.parapertussis DNA PCR Not detected (Not Detecte) Coronavirus OC43 (PCR) Not detected (Not Detect) Coronavirus HKU1 (PCR) Not detected (Not Detect) Coronavirus 229E (PCR) Not detected (Not Detect) SARS-CoV-2 (PCR) Not detected (Not Detecte) Coronavirus NL63 (PCR) Not detected (Not Detect) Human Metapneumovir PCR Not detected (Not Detect) Influenza Type A (PCR) Not detected (Not Detect) Influenza Type B (PCR) Not detected (Not Detect) M. pneumoniae (PCR) Not detected (Not Detect) Parainfluenza 1 (PCR) Not detected (Not Detect) Parainfluenza 2 (PCR) Not detected (Not Detect) Parainfluenza 3 (PCR) Not detected (Not Detect) Parainfluenza 4 (PCR) Not detected (Not Detect) RSV (PCR) Not detected (Not Detect) Entero/Rhino (PCR) Not detected (Not Detect) 06/13/22 06/13/22 06/13/22 Range/Units 16:17 17:12 17:12 WBC (4.5-11.0) X10^3/uL RBC (4.5-5.9) X10^6/uL Hgb (13.5-17.5) g/dL Hct (41-53) % MCV (80-100) fL MCH (26-34) PG MCHC (30-36) % RDW (11.6-14.8) % Plt Count (150-400) X10^3/uL Neut % (Auto) (50-75) % Lymph % (Auto) (25-40) % [place] % (Auto) (3-14) % Eos % (Auto) (2-4) % Baso % (Auto) (0-2) % Neut # (Auto) (8662-0283) /uL Lymph # (Auto) (3210-9575) /uL [place] # (Auto) (0-900) /uL Eos # (Auto) (0-450) /uL Baso # (Auto) (0-100) /uL PT (10.1-12.7) SECONDS INR (0.9-1.3) APTT (26-36) SECONDS Sodium (137-145) mmol/L Potassium (3.4-5.1) mmol/L Chloride (98-107) mmol/L Carbon Dioxide (22-32) mmol/L BUN (9-20) mg/dL Creatinine (0.66-1.25) mg/dL Estimated GFR (>60) mL/min BUN/Creatinine Ratio (6-22) Glucose (80-110) mg/dL Lactate 1.3 (0.7-2.1) mmol/L Calcium (8.4-10.2) mg/dL Magnesium (1.6-2.3) mg/dL Total Bilirubin (0.2-1.3) mg/dL AST (17-59) IU/L ALT (<50) IU/L Alkaline Phosphatase (38-126) U/L Total Creatine Kinase (55-170) U/L CK-MB (CK-2) (<2.37) ng/mL CK-MB (CK-2) Rel Index (1.5-5.0) % Troponin I < 0.012 (0.01-0.034) ng/mL NT-Pro-B Natriuret Pep (<450) pg/mL Total Protein (6.3-8.2) g/dL Albumin (3.5-5.0) g/dL Globulin (1.7-4.1) g/dL Albumin/Globulin Ratio (1.0-2.8) Lipase (23-300) U/L Procalcitonin (<0.5) ng/mL Digoxin 0.6 L (0.8-2.0) ng/mL Chlamy pneumoniae PCR (Not Detect) Adenovirus (PCR) (Not Detect) B. pertussis DNA (PCR) (Not Detecte) B.parapertussis DNA PCR (Not Detecte) Coronavirus OC43 (PCR) (Not Detect) Coronavirus HKU1 (PCR) (Not Detect) Coronavirus 229E (PCR) (Not Detect) SARS-CoV-2 (PCR) (Not Detecte) Coronavirus NL63 (PCR) (Not Detect) Human Metapneumovir PCR (Not Detect) Influenza Type A (PCR) (Not Detect) Influenza Type B (PCR) (Not Detect) M. pneumoniae (PCR) (Not Detect) Parainfluenza 1 (PCR) (Not Detect) Parainfluenza 2 (PCR) (Not Detect) Parainfluenza 3 (PCR) (Not Detect) Parainfluenza 4 (PCR) (Not Detect) RSV (PCR) (Not Detect) Entero/Rhino (PCR) (Not Detect) Imaging Data Chest x-ray: Radiologist's Impression: [address] [address] XRay Report Signed Patient: Sam Blancas MR#: [id number] : 1940 Acct:[id number] Age/Sex: 81 / M Date of Service: 06/13/22 Loc: ED Accession Number: [id number] ?? Procedure: XR chest 1V Ordering Provider: Yasmine Ramos D.O. PROCEDURE:? XR CHEST 1V ? INDICATIONS:? chest pain ? TECHNIQUE:? One view of the chest was acquired.? ? COMPARISON:? [facility], CR, XR CHEST 1V, 10/24/2021, 16:48. ? FINDINGS:? ? Surgical changes and devices:? Pacemaker ? Lungs and pleura:? Lungs are clear.? No pleural effusions or pneumothorax.? ? Mediastinum:? Mediastinal contours appear normal.? Moderate to severe cardiomegaly. ? Bones and chest wall:? No suspicious bony lesions.? Overlying soft tissues appear unremarkable.? ? IMPRESSION:? Moderate to severe cardiomegaly. No evidence acute pulmonary process. ? ? ? Dictated by: Gui Blackman M.D. on 06/13/2022 at 14:31 ? ? Approved by: Gui Blackman M.D. on 06/13/2022 at 14:32?? ECG Data Attestation: I personally reviewed and interpreted this ECG as follows: Prior ECG tracings: available for review Interpretation: Dual paced rhythm with occasional ventricular paced complexes rate of 75 TN 166 QRS of 184 QTC of 513. No acute ST elevation. Patient has prior EKG from 10/24/2021 T-waves are upright and lateral leads today's. MDM Narrative Medical decision making narrative: This is an 81-year-old male who presents with complaint of shortness of breath when he tries to go for a walk, he has not walk this distance for some time. He does note his Bumex has been increased and then decreased back down he states the swelling in his legs is better he is not having increased dyspnea or shortness of breath at home in his normal pattern of exertion. He is mildly anemic but at baseline. His INR today is 3.2 on warfarin. Sodium is 129 chlorides 90 with a BUN of 45 and a creatinine of 1.75, this is slightly increased from is normal and his sodium is slightly decreased. Lactate was 2.7 is 1.3 on recheck bilirubin slightly elevated troponins negative on initial. BNP is 3170 he was 4400 in September. Patient has ambulated in the department to the bathroom and back without issue. Repeat troponin shows no acute change. Patient has ambulated here in the department to the bathroom and back without issue. Patient notes his to solid blood pressure ranges but he typically runs about 100-115 systolic. He was lower than this He did have a 500 cc fluid bolus. And is closer to his baseline Blood pressure. Patient is felt appropriate to discharge home discussed increasing his Bumex but after Was discharged he noted that he had a new prescription for metolazone that had been prescribed by his hand worker to take with his Bumex. patient called back and instead of increasing his Bumex he was instructed to continue Bumex 1 mg and take his metolazone as prescribed by his hand worker with his medication. We did discuss he needs to follow-up to make sure that his renal function is appropriate as well as his electrolytes. Discharge Plan Departure Patient Disposition: Home Clinical Impression: Acute on chronic clinical systolic heart failure, Hyponatremia Instructions: DI for Heart Failure Activity Restrictions/Additional Instructions: Please follow-up with your physician this coming week. I would recommend also having your electrolytes and renal function rechecked to make sure that they are appropriate. Make sure to follow up and get your echo to check your heart function. Increase your Bumex 2 mg x 3 days and then return to your normal 1 mg Bumex dose. Please return for new or worsening chest, shortness of breath, increasing swelling in your extremities, fevers, lightheadedness or passing out, persistent vomiting or other new or concerning changes Prescriptions: No Action bisoprolol fumarate 5 mg tablet 5 mg PO TID Qty: 0 digoxin [Lanoxin] 125 mcg (0.125 mg) tablet 125 mcg PO DAILY Qty: 0 spironolactone [Aldactone] 25 mg tablet 12.5 mg PO QDAY Qty: 0 warfarin [Coumadin] 2 mg tablet See Rx Instructions PO DAILY Qty: 0 Rx Instructions: 3mg Thursday, Thursday and 2mg all other days, or as directed rosuvastatin 20 mg tablet 20 mg PO DAILY Qty: 90 3RF Disabled Parking Permit 1 ea Not Applicable DAILY Qty: 1 0RF Rx Instructions: As directed trazodone 50 mg tablet 25 - 50 mg PO BEDTIME PRN (Reason: sleep) Qty: 60 5RF Rx Instructions: 1/2 tablet to 1 tablet as needed for sleep omeprazole 20 mg tablet,delayed release (DR/EC) 20 mg PO DAILY Qty: 90 3RF colchicine 0.6 mg capsule 1.2 mg PO PRN Patient Comments: Take 2 capsules by mouth now then 1 every 1-2 hours as needed for gout. Max 4 tablets/24 hours for 3 days magnesium oxide 500 mg capsule 500 mg PO DAILY ascorbic acid (vitamin C) 1,000 mg tablet 1,000 mg PO DAILY cholecalciferol (vitamin D3) 25 mcg (1,000 unit) capsule 25 mcg PO DAILY Jardiance 25 mg tablet 25 mg PO DAILY bumetanide 1 mg tablet 1 mg PO DAILY Qty: 90 3RF triamcinolone acetonide 0.1 % cream See Rx Instructions topical DAILY PRN (Reason: Rash on arms) Qty: 30 0RF Rx Instructions: 1 gram daily topically daily PRN; mupirocin 2 % ointment See Rx Instructions topical BID Qty: 22 0RF Rx Instructions: 0.5 gram topically twice a day; diclofenac sodium 1 % gel 2 g topical QID Qty: 100 0RF Rx Instructions: Apply to area of pain up to 4 times daily Referrals: Danial Estevez MD [Primary Care Provider] - Stand Alone Forms: Patient Portal/API
[2022-06-13 16:38] LABS: Lactate 2HR (Lactic Acid Rflx) 1.3 mmol/L (0.7-2.1)
[2022-06-13 17:48] LABS: Digoxin 0.6 ng/mL (0.8-2.0); Troponin I < 0.012 ng/mL (0.01-0.034)
== END 2022-06-13 18:56 | disposition home or self-care (01) ==
PROVIDERS: Emergency Provider Emergency Medicine; PCP Internal Medicine
DX: I50.23 Acute on chronic systolic (congestive) heart failure (principal); E87.1 Hypo-osmolality and hyponatremia; K59.00 Constipation, unspecified; Z79.01 Long term (current) use of anticoagulants; Z20.822 Contact with and (suspected) exposure to COVID-19
CPT/HCPCS: 36415; 71045; 80053; 80162; 82550; 82553; 83605; 83690; 83735; 83880; 84145; 84484; 85025; 85610; 85730; 87633; 93005; 93010; 96360; 96361; 99284

== ENCOUNTER → 2022-06-20 09:12 | Outpatient (CLI) | payer MEDICARE, SELFPAY ==
--- NOTE | 2022-06-20 | DI.ECHO.S_ITS ---
[facility] +---------+ : : [address] [place] : : : : [id number] : : : : Phone: [phone]---------+ Echocardiogram Report + + :Name: BÁRBARA KEEN Study Date: 06/20/2022 Height: 67 in : :[facility] ReadingLocation: Weight: 141 lb : : Gender: Male BSA: 1.7 m2 : :: 1940 Age: 81 yrs BP: 110/70 mmHg: :Reason For Study: HEART DISEASE : :Ordering Physician: ZHANG, : :MANUEL Performed By: JAMES FALK : :Referring: MANUEL FOUNTAIN : + + Interpretation Summary The left ventricle is moderately dilated. Left ventricular systolic function is severely reduced. The ejection fraction is estimated to be 20-25%. There has been no significant change since the previous exam. Compared to the prior exam, the inferior wall motion abnormality has increased in severity. The right ventricle is moderately dilated. Right ventricular systolic function is moderately reduced. The right ventricular systolic pressure is estimated to be at least 48 mmHg based on an estimated right atrial pressure of 15 mm Hg. Compared to the prior echo exam, there has been an increase in the severity of pulmonary hypertension. There is severe biatrial enlargement. There is most likely fibrinous deposition on right atrial lead. A mitral valve clip is present. There is moderate mitral regurgitation. Compared to the prior echo study, there has been no change in the severity of mitral regurgitation. There is mild to moderate aortic regurgitation. Compared to the prior echo study, there has been an increase in the severity of aortic regurgitation. There is moderate to severe tricuspid regurgitation. Compared to the prior echo exam, there has been an increase in TR severity. The aortic root is normal size. Procedure: A two-dimensional transthoracic echocardiogram with color flow and Doppler was performed. The study quality was technically adequate. Comparison is made with the echocardiogram of 07/25/2021. The patient has a paced rhythm. Left Ventricle: The left ventricle is moderately dilated. Left ventricular systolic function is severely reduced. The ejection fraction is estimated to be 20-25%. There has been no significant change since the previous exam. There is severe global hypokinesis of the left ventricle. Compared to the prior exam, the inferior wall motion abnormality has increased in severity. Right Ventricle: The right ventricle is moderately dilated. Right ventricular systolic function is moderately reduced. Atria: There is severe biatrial enlargement. There is a catheter/pacemaker lead seen in the right atrium. There is most likely fibrinous deposition on right atrial lead. There is no Doppler evidence for an interatrial shunt. Mitral Valve: The mitral valve leaflets appear moderately thickened, but open well. A mitral valve clip is present. There is moderate mitral regurgitation. Compared to the prior echo study, there has been no change in the severity of mitral regurgitation. Aortic Valve: The aortic valve is trileaflet. There is minimally reduced leaflet mobility. The aortic valve is slightly calcified. There is moderate aortic valve sclerosis. There is no aortic valve stenosis. There is mild to moderate aortic regurgitation. Compared to the prior echo study, there has been an increase in the severity of aortic regurgitation. Tricuspid Valve: Tricuspid leaflets are thickened. The tricuspid annulus is dilated. There is moderate to severe tricuspid regurgitation. Compared to the prior echo exam, there has been an increase in TR severity. The right ventricular systolic pressure is estimated to be at least 48 mmHg based on an estimated right atrial pressure of 15 mm Hg. Compared to the prior echo exam, there has been an increase in the severity of pulmonary hypertension. Pulmonic Valve: The pulmonic valve leaflets are thin and pliable; valve motion is normal. There is mild pulmonic regurgitation. Great Vessels: The aortic root is normal size. The ascending aorta is normal in size. The IVC is dilated (diameter is greater than 2.1 cm) and it collapses less than 50% with a sniff. This suggests a high right atrial pressure of 15 mm Hg. Pericardium/ Pleura There is no pericardial effusion. There is no pleural effusion. MMode/2D Measurements & Calculations LVIDd: 6.0 cm LVOT diam: 2.0 cm LVIDs: 5.9 cm Ao root diam: 3.2 cm FS: 1.2 % asc Aorta Diam: 3.7 cm IVSd: 1.00 cm LVPWd: 0.77 cm LV alvares. diameter/BSA (cm/m^2): 3.4 LV sys. diameter/BSA (cm/m^2): 3.4 LA A2 area: 38.3 cm2 RA long axis: 6.7 cm LA A4 area: 33.5 cm2 RA area: 39.5 cm2 LA length (vol): 7.3 cm RA vol: 198.7 ml LA vol: 150.0 ml RA : 114.0 ml/m2 LA vol index: 86.0 ml/m2 TAPSE: 0.68 cm Doppler Measurements & Calculations Ao V2 max: 162.7 cm/sec LVOT Max Maksim: 66.0 cm/sec Ao V2 mean: 123.0 cm/sec LV V1 max P.7 mmHg Ao max P.6 mmHg LV V1 VTI: 8.8 cm Ao mean P.4 mmHg LOUISA(I,D): 1.3 cm2 Ao V2 VTI: 21.8 cm LOUISA(V,D): 1.3 cm2 sev ratio: 0.40 LOUISA indexed to BSA (cm^2/m^2): 0.76 Med Peak E' Maksim: 4.6 cm/sec TR max maksim: 285.5 cm/sec Lat Peak E' Maksim: 9.7 cm/sec TR max P.6 mmHg MVA(VTI): 1.2 cm2 PA V2 max: 48.3 cm/sec PA V2 mean: 30.0 cm/sec PA mean P.41 mmHg PA pr(Accel): 43.0 mmHg MV V2 mean: 42.8 cm/sec SV(LVOT): 28.7 ml MV mean P.2 mmHg MV V2 VTI: 23.3 cm Reading Physician:04:51 PM
[2022-06-20 13:39] LABS: BUN Creatinine Ratio 30.8 (6-22); Blood Urea Nitrogen 56 mg/dL (9-20); Calcium 9.6 mg/dL (8.4-10.2); Carbon Dioxide 38 mmol/L (22-32); Chloride 81 mmol/L (98-107); Estimated Glomerular Filt Rate 37 mL/min (>60); Glucose 165 mg/dL (80-110); HEMOLYSIS < 15 (0-50); Potassium 2.9 mmol/L (3.4-5.1); Sodium 130 mmol/L (137-145)
== END ==
PROVIDERS: PCP Internal Medicine; Referring Provider Internal Medicine Cardiovascular Disease; Visit Provider Internal Medicine Cardiovascular Disease
DX: Z98.890 Other specified postprocedural states (principal); Z95.818 Presence of other cardiac implants and grafts; I50.9 Heart failure, unspecified; I51.7 Cardiomegaly; I34.0 Nonrheumatic mitral (valve) insufficiency; I35.1 Nonrheumatic aortic (valve) insufficiency; I07.1 Rheumatic tricuspid insufficiency
CPT/HCPCS: 36415; 80048; 93306

== ENCOUNTER 2022-06-26 12:13 | Emergency (ER) | payer MEDICARE, SELFPAY ==
[2022-06-26 12:19] VITALS: BP 109/73; PULSE 75; RESP 18; TEMP 36.4; O2SAT 97; BMI 20.5
--- NOTE | 2022-06-26 12:50 | DI.RAD.S_ITS ---
PROCEDURE: XR ABDOMEN MIN 2V INDICATIONS: rectal pain TECHNIQUE: 2 views of the abdomen were acquired. COMPARISON: [facility], CT, CT KIDNEY URETER BLADDER (KUB), 10/24/2021, 19:09. FINDINGS: Surgical changes and devices: Pacemaker leads. Bowel: No pneumoperitoneum. No dilated loops of bowel seen. Prominent stool in colon. Soft tissues: No masses; visualized solid organ contours appear normal in size. No suspicious abdominal calcifications. Bones: No suspicious bony abnormalities. Scoliosis. IMPRESSION: Prominent stool in the colon. Dictated by: Amadeo Hood M.D. on 06/26/2022 at 14:00 Approved by: Amadeo Hood M.D. on 06/26/2022 at 14:03
[2022-06-26] MEDS: MINERAL OIL 1 EACH ENEMA PR (13:01)
--- NOTE | 2022-06-26 13:29 | ED.ABDPAIN ---
HPI - Abdominal Pain General Chief Complaint: Abdominal Pain Stated Complaint: Constipation Time Seen by Provider: 06/26/22 12:44 Source: patient Mode of arrival: EMS History of Present Illness HPI narrative: Patient is a 81-year-old history of congestive heart failure, pacemaker, cardiac stents, mitral clip, atrial fibrillation presents today with rectal pain. He feels like he has to have a bowel movement and he just can not. He denies any nausea or vomiting he is tried mineral oil and some [id number] medications at home. He feels pressure in his bottom. He denies any chest pain shortness of breath or increasing peripheral edema. Unfortunately he is here with his who has severe dementia and wandering capabilities they have an appointment tomorrow with [facility] for evaluation. He was seen evaluated here June 13 were shortness of breath with dyspnea at that time he was also complaining of some mild constipation. Related Data Home Medications Medication Instructions Recorded Confirmed ascorbic acid (vitamin C) 1,000 mg 1,000 mg PO DAILY 07/10/21 04/28/22 tablet bisoprolol fumarate 5 mg tablet 5 mg PO TID #0 tabs 07/10/21 04/28/22 cholecalciferol (vitamin D3) 25 25 mcg PO DAILY 07/10/21 04/28/22 mcg (1,000 unit) capsule colchicine 0.6 mg capsule 1.2 mg PO PRN 07/10/21 04/28/22 digoxin 125 mcg (0.125 mg) tablet 125 mcg PO DAILY #0 tabs 07/10/21 04/28/22 (Lanoxin) magnesium oxide 500 mg capsule 500 mg PO DAILY 07/10/21 04/28/22 spironolactone 25 mg tablet 12.5 mg PO QDAY ##0 07/10/21 04/28/22 (Aldactone) warfarin 2 mg tablet (Coumadin) See Rx Instructions PO DAILY #0 07/22/21 04/28/22 tabs empagliflozin 25 mg tablet 25 mg PO DAILY 04/28/22 04/28/22 (Jardiance) Previous Rx's Medication Instructions Recorded triamcinolone acetonide 0.1 % See Rx Instructions topical DAILY 10/09/21 topical cream PRN Rash on arms #30 grams diclofenac sodium 1 % topical gel 2 g topical QID #100 grams 10/24/21 mupirocin 2 % topical ointment See Rx Instructions topical BID 12/19/21 #22 grams rosuvastatin 20 mg tablet 20 mg PO DAILY #90 tabs 04/11/22 bumetanide 1 mg tablet 1 mg PO DAILY #90 tabs 04/30/[address]ing Permit 1 ea Not Applicable DAILY #1 ea 05/02/22 trazodone 50 mg tablet 25 - 50 mg PO BEDTIME PRN sleep 05/26/22 #60 tabs omeprazole 20 mg tablet,delayed 20 mg PO DAILY #90 tabs 06/16/22 release Allergies Allergy/AdvReac Type Severity Reaction Status Date / Time fluconazole [FLUCONAZOLE] Allergy Mild RASH Verified 06/13/22 13:50 itraconazole [From SPORANOX] Allergy Unknown Verified 06/13/22 13:50 clopidogrel [From Plavix] Allergy Rash Verified 06/13/22 13:50 Review of Systems Review of Systems ROS Unobtainable: All systems reviewed & are unremarkable except as noted in HPI and below Patient History Medical History Allergic rhinitis Arrhythmia Chicken pox (~1946) Chronic atrial fibrillation Colon polyps (~2015) Coronary artery disease (~2013) Diverticular disease Eczematous dermatitis Essential hypertension GERD without esophagitis Gout (~2011) Measles Mixed hyperlipidemia (~2013) Mumps (~1947) Osteoarthritis of right hip Skin cancer (~2008) Stage 3a chronic kidney disease (CKD) Systolic CHF, chronic (~2013) Type 2 diabetes mellitus with cardiac complication (~2016) Vertigo (~2013) Surgical History Anesthesia Cardiac defibrillator in place (~2015) History of varicose vein ligation (~1997) Pacemaker (~2013) S/P coronary artery stent placement (~2020) S/P mitral valve clip implantation (~2020) Family History Father History of heart disease Mother Multiple sclerosis Grandfather Cancer Social History Smoking Status: Never smoker Smoking Status: Never smoker alcohol intake frequency: 0-2 drinks per day Substance Use Type: does not use Exam Initial Vital Signs Initial Vital Signs: Vital Signs Temperature 97.6 F 06/26/22 12:19 Pulse Rate 75 06/26/22 12:19 Respiratory Rate 18 06/26/22 12:19 Blood Pressure 109/73 06/26/22 12:19 Pulse Oximetry 97 06/26/22 12:19 Oxygen Delivery Method Room Air 06/26/22 12:19 GENERAL: Alert pleasant 81-year-old male HEENT: Head atraumatic,EOMI, pupils reactive, face symmetric, moist mucous membranes CARDIOVASCULAR: Regular rate and rhythm without murmurs, rubs or gallops. RESPIRATORY: Breath sounds equal bilaterally, no wheezes rales or rhonchi. ABDOMEN: Soft, nontender. Normoactive bowel sounds all 4 quadrants. No guarding or rebound. RECTAL: Stool is felt but unable to disimpact mildly tender no gross blood EXTREMITIES: Normal range of motion, no clubbing or edema. Neurovascularly intact NEUROLOGICAL: Alert and oriented x4. SKIN: Warm, dry, no laceration, no petechiae, no rashes or lesions. Course Orders Ordered: ED Orders 06/26/22 12:50 XR abdomen min 2V Stat 06/26/22 13:34 Chest [XR chest 1V] Stat Discontinued Medications Magnesium Citrate (Magnesium Citrate 300 Ml Solution) 300 ml PO NOW ONE Stop: 06/26/22 14:20 Last Admin: 06/26/22 14:29 Dose: 300 ml Documented By: OSKAR Mineral Oil (Mineral Oil 1 Each Enema) 1 each MA NOW ONE Stop: 06/26/22 12:51 Last Admin: 06/26/22 13:01 Dose: 1 each Documented By: DESTINEY Vital Signs Vital signs: Vital Signs - 8 hr 06/26/22 12:19 06/26/22 15:53 Temperature 97.6 F Pulse Rate 75 76 Respiratory Rate 18 16 Blood Pressure 109/73 101/63 Pulse Oximetry 97 99 Oxygen Delivery Method Room Air Room Air MDM - Abdominal Pain Imaging Data Abdominal x-ray: Radiologist's Impression: PROCEDURE:? XR ABDOMEN MIN 2V ? INDICATIONS:? rectal pain ? TECHNIQUE:? 2 views of the abdomen were acquired.? ? COMPARISON:? [facility], CT, CT KIDNEY URETER BLADDER (KUB), 10/24/2021, 19:09. ? FINDINGS:? Surgical changes and devices:? Pacemaker leads.? ? Bowel:? No pneumoperitoneum.? No dilated loops of bowel seen.? Prominent stool in colon. ? Soft tissues:? No masses; visualized solid organ contours appear normal in size.? No suspicious abdominal calcifications.? ? Bones:? No suspicious bony abnormalities.? Scoliosis.? ? IMPRESSION:? Prominent stool in the colon. ? ? Dictated by: Amadeo Hood M.D. on 06/26/2022 at 14:00 ? ? MDM Narrative Medical decision making narrative: Patient 81-year-old male complaining of constipation. He reports pressure and stool in his rectum. X-ray confirms constipation along with digital rectal exam stool is felt but unable to disimpact. Patient is likely constipated I know suspect other etiologies this time. He appears very comfortable. His abdomen is generally soft without nausea or vomiting. He is given an enema here in unsuccessful. Was given bottle of magnesium citrate in the department and actually was successful with a bowel movement and overall felt better. Symptoms consistent constipation Discharge Plan Departure Patient Disposition: Home Clinical Impression: Constipation Instructions: DI for Constipation Activity Restrictions/Additional Instructions: *You have been diagnosed with *You have been diagnosed with abdominal pain due to constipation *What to do: *Take over the counter medications as directed: 1. Metamucil - bulk forming laxative adds fiber 2. Colace - softens your stool 3. Dulcolax Suppository - stimulates your bowels from the bottom *Follow up with your primary care provider in 2-3 days, call for appointment *Return to ER if you should have any new, worsening or concerning symptoms *Drink plenty of water and eat foods high in fiber *Try to be as active as possible, consider walking your dog daily Follow-up with your doctor in 2-3 days or call [phone] *Return to ER if you should have increasing abdominal pain, nausea vomiting, fever, chest pain some shortness of breath or any new, worsening or concerning symptoms Prescriptions: No Action bisoprolol fumarate 5 mg tablet 5 mg PO TID Qty: 0 digoxin [Lanoxin] 125 mcg (0.125 mg) tablet 125 mcg PO DAILY Qty: 0 spironolactone [Aldactone] 25 mg tablet 12.5 mg PO QDAY Qty: 0 warfarin [Coumadin] 2 mg tablet See Rx Instructions PO DAILY Qty: 0 Rx Instructions: 3mg Thursday, Thursday and 2mg all other days, or as directed rosuvastatin 20 mg tablet 20 mg PO DAILY Qty: 90 3RF Disabled Parking Permit 1 ea Not Applicable DAILY Qty: 1 0RF Rx Instructions: As directed trazodone 50 mg tablet 25 - 50 mg PO BEDTIME PRN (Reason: sleep) Qty: 60 5RF Rx Instructions: 1/2 tablet to 1 tablet as needed for sleep omeprazole 20 mg tablet,delayed release (DR/EC) 20 mg PO DAILY Qty: 90 3RF colchicine 0.6 mg capsule 1.2 mg PO PRN Patient Comments: Take 2 capsules by mouth now then 1 every 1-2 hours as needed for gout. Max 4 tablets/24 hours for 3 days magnesium oxide 500 mg capsule 500 mg PO DAILY ascorbic acid (vitamin C) 1,000 mg tablet 1,000 mg PO DAILY cholecalciferol (vitamin D3) 25 mcg (1,000 unit) capsule 25 mcg PO DAILY Jardiance 25 mg tablet 25 mg PO DAILY bumetanide 1 mg tablet 1 mg PO DAILY Qty: 90 3RF triamcinolone acetonide 0.1 % cream See Rx Instructions topical DAILY PRN (Reason: Rash on arms) Qty: 30 0RF Rx Instructions: 1 gram daily topically daily PRN; mupirocin 2 % ointment See Rx Instructions topical BID Qty: 22 0RF Rx Instructions: 0.5 gram topically twice a day; diclofenac sodium 1 % gel 2 g topical QID Qty: 100 0RF Rx Instructions: Apply to area of pain up to 4 times daily Referrals: Danial Estevez MD [Primary Care Provider] - Stand Alone Forms: Patient Portal/API
--- NOTE | 2022-06-26 13:34 | DI.RAD.S_ITS ---
PROCEDURE: XR CHEST 1V INDICATIONS: pacemaker TECHNIQUE: One view of the chest was acquired. COMPARISON: [facility], CR, XR CHEST 1V, 06/13/2022, 13:56. FINDINGS: Surgical changes and devices: Left chest wall pacemaker leads are seen in the region of right atrium, right ventricle and left ventricle. Lungs and pleura: Lungs are clear. No pleural effusions or pneumothorax. Mediastinum: Mediastinal contours appear normal. Heart size is enlarged. Bones and chest wall: No suspicious bony lesions. Overlying soft tissues appear unremarkable. IMPRESSION: Left chest wall pacemaker leads position as above. Cardiomegaly. No focal infiltrate, pleural effusion or pneumothorax. Dictated by: Mark Gupta M.D. on 06/26/2022 at 14:54 Approved by: Mark Gupta M.D. on 06/26/2022 at 14:55
[2022-06-26] MEDS: MAGNESIUM CITRATE 300 ML SOLUTION PO (14:29)
[2022-06-26 15:53] VITALS: BP 101/63; PULSE 76; RESP 16; O2SAT 99
== END 2022-06-26 15:54 | disposition home or self-care (01) ==
PROVIDERS: Emergency Provider Emergency Medicine; PCP Internal Medicine
DX: K59.00 Constipation, unspecified (principal); R10.9 Unspecified abdominal pain; Z79.01 Long term (current) use of anticoagulants; Z79.899 Other long term (current) drug therapy; Z95.0 Presence of cardiac pacemaker
CPT/HCPCS: 71045; 74019; 99283; 99284

== ENCOUNTER → 2022-07-02 12:12 | Outpatient (CLI) | payer MEDICARE, SELFPAY ==
[2022-07-02 13:23] LABS: BUN Creatinine Ratio 33.5 (6-22); Blood Urea Nitrogen 53 mg/dL (9-20); Calcium 9.2 mg/dL (8.4-10.2); Carbon Dioxide 26 mmol/L (22-32); Chloride 91 mmol/L (98-107); Estimated Glomerular Filt Rate 43 mL/min (>60); Glucose 126 mg/dL (80-110); HEMOLYSIS < 15 (0-50); Potassium 4.5 mmol/L (3.4-5.1); Sodium 129 mmol/L (137-145)
== END ==
PROVIDERS: PCP Internal Medicine; Referring Provider Internal Medicine Cardiovascular Disease; Visit Provider Internal Medicine Cardiovascular Disease
DX: I50.9 Heart failure, unspecified (principal)
CPT/HCPCS: 36415; 80048

== ENCOUNTER → 2022-07-23 16:27 | Outpatient (CLI) | payer MEDICARE, SELFPAY ==
[2022-07-23 18:17] LABS: INR 2.5 (0.9-1.3); Prothrombin Time 28.5 SECONDS (10.1-12.7)
== END ==
PROVIDERS: PCP Internal Medicine; Referring Provider Internal Medicine; Visit Provider Internal Medicine
DX: I48.20 Chronic atrial fibrillation, unspecified (principal)
CPT/HCPCS: 36415; 85610

== ENCOUNTER 2022-08-05 17:09 | Emergency (ER) | payer MEDICARE, SELFPAY ==
[2022-08-05 17:41] VITALS: BP 100/55; PULSE 76; RESP 17; TEMP 36.6; O2SAT 98; BMI 20.8
== END 2022-08-05 19:31 | disposition left against medical advice (07) ==
PROVIDERS: Emergency Provider Emergency Medicine; PCP Internal Medicine
DX: L29.9 Pruritus, unspecified (principal)
CPT/HCPCS: 99281

== ENCOUNTER → 2022-08-07 14:56 | Outpatient (CLI) | payer MEDICARE, SELFPAY ==
[2022-08-07 15:38] LABS: Hematocrit 39.4 % (41-53); Hemoglobin 13.2 g/dL (13.5-17.5); Mean Corpuscular HGB Conc 33.5 % (30-36); Mean Corpuscular Hemoglobin 26.9 PG (26-34); Mean Corpuscular Volume 80.5 fL (80-100); Platelet Count 154 X10^3/uL (150-400); Red Cell Distribution Width 20.9 % (11.6-14.8); White Blood Cell Count 6.3 X10^3/uL (4.5-11.0)
[2022-08-07 15:39] LABS: Alanine Aminotransferase 59 IU/L (<50); Albumin 4.2 g/dL (3.5-5.0); Albumin Globulin Ratio 1.4 (1.0-2.8); Alkaline Phosphatase 90 U/L (38-126); Aspartate Aminotransferase 72 IU/L (17-59); BUN Creatinine Ratio 45.3 (6-22); Bilirubin Total 2.3 mg/dL (0.2-1.3); Blood Urea Nitrogen 62 mg/dL (9-20); Calcium 9.5 mg/dL (8.4-10.2); Carbon Dioxide 27 mmol/L (22-32); Chloride 87 mmol/L (98-107); Estimated Glomerular Filt Rate 52 mL/min (>60); Globulin 2.9 g/dL (1.7-4.1); Glucose 149 mg/dL (80-110); HEMOLYSIS < 15 (0-50); Potassium 4.8 mmol/L (3.4-5.1); Sodium 127 mmol/L (137-145); Total Protein 7.1 g/dL (6.3-8.2)
[2022-08-07 16:09] LABS: TSH w/ Reflex to FT4 5.89 uIU/mL (0.47-4.68)
[2022-08-07 16:27] LABS: Vitamin B12 Reflex MMA if <400 825 pg/mL (239-931)
[2022-08-07 17:10] LABS: Free T4, Direct Thyroxine 1.75 ng/dL (0.78-2.19)
[2022-08-08 12:30] LABS: x Labcorp Estim. Avg Glu (eAG) 189 mg/dL (.); x Labcorp Hemoglobin A1c 8.2 % (4.8-5.6)
== END ==
PROVIDERS: PCP Internal Medicine; Referring Provider Nurse Practitioner Family; Visit Provider Nurse Practitioner Family
DX: E11.59 Type 2 diabetes mellitus with other circulatory complications (principal); I10 Essential (primary) hypertension; I50.22 Chronic systolic (congestive) heart failure; R53.83 Other fatigue
CPT/HCPCS: 36415; 80053; 82607; 83036; 84439; 84443; 85027

== ENCOUNTER → 2022-08-16 08:27 | Outpatient (CLI) | payer MEDICARE, SELFPAY ==
--- NOTE | 2022-08-16 08:28 | DI.RAD.S_ITS ---
PROCEDURE: XR CHEST 2V INDICATIONS: Cough TECHNIQUE: 2 views of the chest were acquired. COMPARISON: [facility], CR, XR CHEST 1V, 06/26/2022, 13:58. FINDINGS: Surgical changes and devices: Left-sided pacer. Lungs and pleura: Mild diffuse reticulonodular pulmonary opacity. No pleural effusions or pneumothorax. Mediastinum: Mediastinal contours are normal. Heart size is enlarged. Bones and chest wall: No suspicious bony abnormalities. Soft tissues appear unremarkable. IMPRESSION: 1. Mild atypical pneumonia. 2. Cardiomegaly. Dictated by: Raffi Carreno M.D. on 08/16/2022 at 8:10 Approved by: Raffi Carreno M.D. on 08/16/2022 at 8:10
== END ==
PROVIDERS: PCP Internal Medicine; Referring Provider Nurse Practitioner Family; Visit Provider Nurse Practitioner Family
DX: J18.9 Pneumonia, unspecified organism (principal); I51.7 Cardiomegaly
CPT/HCPCS: 71046

== ENCOUNTER 2022-08-18 20:20 | Emergency (ER) | payer MEDICARE, SELFPAY ==
[2022-08-18] VITALS (8 sets, daily range): BP systolic 92–125; BP diastolic 61–75; PULSE 75–88; RESP 18–24; TEMP 36.6; O2SAT 97–98; BMI 22.0
--- NOTE | 2022-08-18 21:29 | DI.RAD.S_ITS ---
PROCEDURE: XR CHEST 1V INDICATIONS: Flu like symptoms TECHNIQUE: One view of the chest was acquired. COMPARISON: [facility], CR, XR CHEST 2V, 08/16/2022, 8:24. FINDINGS: Surgical changes and devices: Left chest wall AICD redemonstrated. Lungs and pleura: Visualized lungs are clear. No pleural effusions or pneumothorax. Mediastinum: Mediastinal contours are unchanged. Heart size is enlarged. Bones and chest wall: No suspicious bony lesions. Overlying soft tissues appear unremarkable. IMPRESSION: 1. No acute cardiopulmonary disease. Dictated by: Mukesh Renteria M.D. on 08/18/2022 at 23:27 Approved by: Mukesh Renteria M.D. on 08/18/2022 at 23:41
[2022-08-18 22:06] LABS: Prothrombin Time 34.3 SECONDS (10.1-12.7)
[2022-08-18 22:09] LABS: PTT Partial Thromboplastin Tim 39 SECONDS (26-36)
[2022-08-18 22:10] LABS: Add Manual Diff / Slide Review NO; Basophils Absolute Auto 100 /uL (0-100); Basophils Percent Auto 0.9 % (0-2); Eosinophils Absolute Auto 300 /uL (0-450); Eosinophils Percent Auto 3.6 % (2-4); Hematocrit 41.3 % (41-53); Hemoglobin 13.8 g/dL (13.5-17.5); Lymphocytes Absolute Auto 800 /uL (1100-4500); Lymphocytes Percent Auto 11.1 % (25-40); Mean Corpuscular HGB Conc 33.4 % (30-36); Mean Corpuscular Hemoglobin 27.4 PG (26-34); Mean Corpuscular Volume 82.1 fL (80-100); Monocytes Absolute Auto 600 /uL (0-900); Monocytes Percent Auto 8.9 % (3-14); Neutrophils Absolute Auto 5400 /uL (1500-7000); Neutrophils Percent Auto 75.5 % (50-75); Platelet Count 183 X10^3/uL (150-400); Red Blood Cell Count 5.03 X10^6/uL (4.5-5.9); Red Cell Distribution Width 21.4 % (11.6-14.8); White Blood Cell Count 7.2 X10^3/uL (4.5-11.0)
[2022-08-18 22:13] LABS: Lactate (Lactic Acid) 1.7 mmol/L (0.7-2.1)
[2022-08-18 22:14] LABS: Alanine Aminotransferase 53 IU/L (<50); Albumin 4.4 g/dL (3.5-5.0); Albumin Globulin Ratio 1.3 (1.0-2.8); Alkaline Phosphatase 89 U/L (38-126); Aspartate Aminotransferase 65 IU/L (17-59); BUN Creatinine Ratio 33.6 (6-22); Bilirubin Total 1.9 mg/dL (0.2-1.3); Blood Urea Nitrogen 45 mg/dL (9-20); Calcium 9.5 mg/dL (8.4-10.2); Carbon Dioxide 22 mmol/L (22-32); Chloride 93 mmol/L (98-107); Estimated Glomerular Filt Rate 53 mL/min (>60); Globulin 3.3 g/dL (1.7-4.1); Glucose 187 mg/dL (80-110); HEMOLYSIS < 15 (0-50); Lipase 351 U/L (23-300); Potassium 4.9 mmol/L (3.4-5.1); Sodium 127 mmol/L (137-145); Total Protein 7.7 g/dL (6.3-8.2)
[2022-08-18 22:15] LABS: Creatine Kinase 221 U/L (55-170)
[2022-08-18 22:23] LABS: RBC Morphology Normal Morphology
[2022-08-18 22:27] LABS: NT-proBNP (BNP-Adult 18+) 5950 pg/mL (<450); Troponin I 0.018 ng/mL (0.01-0.034)
[2022-08-18 22:31] LABS: Procalcitonin 0.13 ng/mL (<0.5)
[2022-08-18 23:19] LABS: Adenovirus Not Detected (Not Detect); Coronavirus 229E Not Detected (Not Detect); Coronavirus HKU1 Not Detected (Not Detect); Coronavirus NL 63 Not Detected (Not Detect); Coronavirus OC43 Not Detected (Not Detect); Human Metapneumovirus Not Detected (Not Detect); Human Rhinovirus/Enterovirus Detected (Not Detect); SARS- CoV-2 Not Detected (Not Detecte)
[2022-08-18 23:20] LABS: B. parapertussis Not Detected (Not Detecte); Bordetella pertussis Not Detected (Not Detecte); Chlamydophila pneumoniae Not Detected (Not Detect); Influenza A Not Detected (Not Detect); Influenza B Not Detected (Not Detect); Mycoplasma pneumoniae Not Detected (Not Detect); Parainfluenza Virus 1 Not Detected (Not Detect); Parainfluenza Virus 2 Not Detected (Not Detect); Parainfluenza Virus 3 Not Detected (Not Detect); Parainfluenza Virus 4 Not Detected (Not Detect); Respiratory Syncytial Virus Not Detected (Not Detect)
--- NOTE | 2022-08-18 23:20 | ED_ITS ---
HPI - SOB/Dyspnea General Chief Complaint: Shortness of Breath/Dyspnea Stated Complaint: PNEMONIA/CHOKING Time Seen by Provider: 08/18/22 21:44 Source: patient Mode of arrival: Ambulatory Limitations: no limitations History of Present Illness HPI Narrative: Patient is a 81-year-old male history of atrial fibrillation, congestive heart failure ongoing rash, coronary artery disease presenting today with increasing cough and shortness of breath. He was seen evaluated at walk-in clinic 2 days ago he had chest x-ray which showed pneumonia. At that time he had complained of cough runny nose and congestion for 1 week. Today he reports he was having increasing shortness of breath coughing and choking. He reports he has increased swelling in his legs as well. He is noted to have low blood pressure but his not having any dizziness lightheadedness or chest pain. He says that his blood pressure is always kind of low. He was started on Augmentin and doxycycline 2 days ago as well. Related Data Home Medications Medication Instructions Recorded Confirmed ascorbic acid (vitamin C) 1,000 mg 1,000 mg PO DAILY 07/10/21 08/07/22 tablet bisoprolol fumarate 5 mg tablet 5 mg PO TID #0 tabs 07/10/21 08/07/22 cholecalciferol (vitamin D3) 25 25 mcg PO DAILY 07/10/21 08/07/22 mcg (1,000 unit) capsule colchicine 0.6 mg capsule 1.2 mg PO PRN 07/10/21 08/07/22 digoxin 125 mcg (0.125 mg) tablet 125 mcg PO DAILY #0 tabs 07/10/21 08/07/22 (Lanoxin) magnesium oxide 500 mg capsule 500 mg PO DAILY 07/10/21 08/07/22 warfarin 2 mg tablet (Coumadin) See Rx Instructions PO DAILY #0 07/22/21 08/07/22 tabs empagliflozin 25 mg tablet 25 mg PO DAILY 04/28/22 08/07/22 (Jardiance) metolazone 2.5 mg tablet 2.5 mg PO 2XW 07/02/22 08/07/22 spironolactone 25 mg tablet 25 mg PO QDAY #0 tabs 07/02/22 08/07/22 (Aldactone) metolazone 2.5 mg tablet 2.5 mg PO QWEEK heart 07/23/22 08/07/22 Previous Rx's Medication Instructions Recorded triamcinolone acetonide 0.1 % See Rx Instructions topical DAILY 10/09/21 topical cream PRN Rash on arms #30 grams diclofenac sodium 1 % topical gel 2 g topical QID #100 grams 10/24/21 mupirocin 2 % topical ointment See Rx Instructions topical BID 12/19/21 #22 grams rosuvastatin 20 mg tablet 20 mg PO DAILY #90 tabs 04/11/22 bumetanide 1 mg tablet 1 mg PO DAILY #90 tabs 04/30/[address]ing Permit 1 ea Not Applicable DAILY #1 ea 05/02/22 trazodone 50 mg tablet 25 - 50 mg PO BEDTIME PRN sleep 05/26/22 #60 tabs omeprazole 20 mg tablet,delayed 20 mg PO DAILY #90 tabs 06/16/22 release amoxicillin 875 mg-potassium 1 tab PO BID #10 tabs 08/16/22 clavulanate 125 mg tablet benzonatate 100 mg capsule 100 mg PO BID PRN cough #20 caps 08/16/22 doxycycline hyclate 100 mg capsule 100 mg PO BID #10 caps 08/16/22 ipratropium bromide 42 mcg (0.06 2 spray intranasal TID 4 days #15 08/16/22 %) nasal spray mL Allergies Allergy/AdvReac Type Severity Reaction Status Date / Time fluconazole [FLUCONAZOLE] Allergy Mild RASH Verified 08/07/22 14:39 itraconazole [From SPORANOX] Allergy Unknown Verified 08/07/22 14:39 clopidogrel [From Plavix] Allergy Rash Verified 08/07/22 14:39 Review of Systems Review of Systems ROS Unobtainable: All systems reviewed & are unremarkable except as noted in HPI and below Patient History Medical History Allergic rhinitis Arrhythmia Chicken pox (~1946) Chronic atrial fibrillation Colon polyps (~2015) Coronary artery disease (~2013) Diverticular disease Eczematous dermatitis Essential hypertension GERD without esophagitis Gout (~2011) Measles Mixed hyperlipidemia (~2013) Mumps (~1947) Osteoarthritis of right hip Skin cancer (~2008) Slow transit constipation Stage 3a chronic kidney disease (CKD) Systolic CHF, chronic (~2013) Type 2 diabetes mellitus with cardiac complication (~2017) Vertigo (~2013) Surgical History Anesthesia Cardiac defibrillator in place (~2015) History of varicose vein ligation (~1997) Pacemaker (~2013) S/P coronary artery stent placement (~2020) S/P mitral valve clip implantation (~2020) Family History Father History of heart disease Mother Multiple sclerosis Grandfather Cancer Social History Smoking Status: Never smoker Smoking Status: Never smoker alcohol intake frequency: 0-2 drinks per day Substance Use Type: does not use Exam Initial Vital Signs Initial Vital Signs: Vital Signs Temperature 97.8 F 08/18/22 20:38 Pulse Rate 88 08/18/22 20:38 Respiratory Rate 20 08/18/22 20:38 Blood Pressure 125/75 08/18/22 20:38 Pulse Oximetry 97 08/18/22 20:38 Oxygen Delivery Method Room Air 08/18/22 20:38 GENERAL: Alert thin 81-year-old male no acute distress HEENT: Head atraumatic,EOMI, pupils reactive, face symmetric, moist mucous membranes CARDIOVASCULAR: Regular rate and rhythm without murmurs, rubs or gallops. RESPIRATORY: Decreased breath sounds more on left than right ABDOMEN: Soft, nontender. Normoactive bowel sounds all 4 quadrants. No guarding or rebound. EXTREMITIES: Normal range of motion, no clubbing. + +2 bilateral pitting edema Neurovascularly intact NEUROLOGICAL: Alert and oriented x4. SKIN: Mild diffuse erythema all over Course Orders Ordered: ED Orders 08/18/22 21:45 Complete Blood Count AUTO DIFF Stat Comprehensive Metabolic Panel Stat Lactate (Lactic Acid) Stat Lipase Stat NT-proBNP (BNP-Adult 18+) Stat PTT Partial Thromboplastin Froylan Stat Procalcitonin Stat Prothrombin Time INR Stat Respiratory Panel (Film Array) Stat Troponin & CK Cardiac Panel Stat 08/18/22 22:16 Blood Culture Stat Discontinued Medications Furosemide (Furosemide 40 Mg/4 Ml Vial) 40 mg IV NOW ONE Stop: 08/18/22 23:23 Last Admin: 08/18/22 23:43 Dose: 40 mg Documented By: SB Ondansetron HCl (Ondansetron 4 Mg Odt) 4 mg SL NOW PRN PRN Reason: Nausea And Vomiting Ondansetron HCl (Ondansetron 4 Mg/2 Ml Inj) 4 mg IV NOW PRN PRN Reason: Nausea And Vomiting Vital Signs Vital signs: Vital Signs - 8 hr 08/18/22 23:00 08/18/22 23:01 08/18/22 23:01 Pulse Rate 82 84 Respiratory Rate 22 18 Blood Pressure 92/61 Pulse Oximetry 97 97 Oxygen Delivery Method 08/18/22 23:30 08/18/22 23:30 08/19/22 00:00 Pulse Rate 80 75 Respiratory Rate 22 19 Blood Pressure 117/69 Pulse Oximetry 97 95 Oxygen Delivery Method 08/19/22 00:01 08/19/22 00:01 08/19/22 00:30 Pulse Rate 74 Respiratory Rate 21 Blood Pressure 94/65 94/52 L Pulse Oximetry 97 Oxygen Delivery Method 08/19/22 00:30 08/19/22 01:00 08/19/22 01:00 Pulse Rate 81 75 Respiratory Rate 20 24 Blood Pressure 81/58 L Pulse Oximetry 98 97 Oxygen Delivery Method 08/19/22 01:03 08/19/22 01:03 08/19/22 01:30 Pulse Rate 78 Respiratory Rate 20 Blood Pressure 86/53 L 90/54 L Pulse Oximetry 98 Oxygen Delivery Method 08/19/22 01:30 08/19/22 01:38 08/19/22 01:38 Pulse Rate 76 75 Respiratory Rate 17 20 Blood Pressure 89/55 L Pulse Oximetry 97 99 Oxygen Delivery Method 08/19/22 01:39 08/19/22 01:39 08/19/22 01:55 Pulse Rate 78 Respiratory Rate 24 Blood Pressure 96/59 L 123/78 Pulse Oximetry 98 Oxygen Delivery Method 08/19/22 01:55 08/19/22 02:00 08/19/22 02:00 Pulse Rate 81 80 Respiratory Rate 23 20 Blood Pressure 109/67 Pulse Oximetry 100 99 Oxygen Delivery Method 08/19/22 02:30 08/19/22 02:30 08/19/22 03:00 Pulse Rate 75 Respiratory Rate 18 Blood Pressure 101/59 L 91/54 L Pulse Oximetry 97 Oxygen Delivery Method 08/19/22 03:00 08/19/22 03:30 08/19/22 03:30 Pulse Rate 76 75 Respiratory Rate 17 23 Blood Pressure 104/72 Pulse Oximetry 98 99 Oxygen Delivery Method Room Air 08/19/22 04:00 08/19/22 04:00 08/19/22 04:30 Pulse Rate 74 Respiratory Rate 21 Blood Pressure 96/51 L 111/71 Pulse Oximetry 98 Oxygen Delivery Method 08/19/22 04:30 08/19/22 05:00 08/19/22 05:00 Pulse Rate 74 75 Respiratory Rate 16 15 Blood Pressure 91/54 L Pulse Oximetry 98 100 Oxygen Delivery Method Room Air 08/19/22 05:30 08/19/22 05:30 08/19/22 06:00 Pulse Rate 74 Respiratory Rate 24 Blood Pressure 123/76 90/52 L Pulse Oximetry 97 Oxygen Delivery Method 08/19/22 06:00 Pulse Rate 75 Respiratory Rate 23 Blood Pressure Pulse Oximetry 98 Oxygen Delivery Method MDM - SOB/Dyspnea Lab Data 08/18/22 21:45 08/18/22 21:45 Labs: Lab Results 08/18/22 08/18/22 08/18/22 Range/Units 21:45 21:45 21:45 WBC 7.2 (4.5-11.0) X10^3/uL RBC 5.03 (4.5-5.9) X10^6/uL Hgb 13.8 (13.5-17.5) g/dL Hct 41.3 (41-53) % MCV 82.1 (80-100) fL MCH 27.4 (26-34) PG MCHC 33.4 (30-36) % RDW 21.4 H (11.6-14.8) % Plt Count 183 (150-400) X10^3/uL Neut % (Auto) 75.5 H (50-75) % Lymph % (Auto) 11.1 L (25-40) % [place] % (Auto) 8.9 (3-14) % Eos % (Auto) 3.6 (2-4) % Baso % (Auto) 0.9 (0-2) % Neut # (Auto) 5400 (5795-3355) /uL Lymph # (Auto) 800 L (2575-5927) /uL [place] # (Auto) 600 (0-900) /uL Eos # (Auto) 300 (0-450) /uL Baso # (Auto) 100 (0-100) /uL RBC Morphology Normal morphology PT 34.3 H (10.1-12.7) SECONDS INR 3.0 H (0.9-1.3) APTT 39 H (26-36) SECONDS Sodium 127 L (137-145) mmol/L Potassium 4.9 (3.4-5.1) mmol/L Chloride 93 L (98-107) mmol/L Carbon Dioxide 22 (22-32) mmol/L BUN 45 H (9-20) mg/dL Creatinine 1.34 H (0.66-1.25) mg/dL Estimated GFR 53 L (>60) mL/min BUN/Creatinine Ratio 33.6 H (6-22) Glucose 187 H (80-110) mg/dL Lactate (0.7-2.1) mmol/L Calcium 9.5 (8.4-10.2) mg/dL Total Bilirubin 1.9 H (0.2-1.3) mg/dL AST 65 H (17-59) IU/L ALT 53 H (<50) IU/L Alkaline Phosphatase 89 (38-126) U/L Total Creatine Kinase (55-170) U/L CK-MB (CK-2) (<2.37) ng/mL CK-MB (CK-2) Rel Index (1.5-5.0) % Troponin I (0.01-0.034) ng/mL NT-Pro-B Natriuret Pep (<450) pg/mL Total Protein 7.7 (6.3-8.2) g/dL Albumin 4.4 (3.5-5.0) g/dL Globulin 3.3 (1.7-4.1) g/dL Albumin/Globulin Ratio 1.3 (1.0-2.8) Lipase 351 H (23-300) U/L Procalcitonin 0.13 (<0.5) ng/mL Chlamy pneumoniae PCR (Not Detect) Adenovirus (PCR) (Not Detect) B. pertussis DNA (PCR) (Not Detecte) B.parapertussis DNA PCR (Not Detecte) Coronavirus OC43 (PCR) (Not Detect) Coronavirus HKU1 (PCR) (Not Detect) Coronavirus 229E (PCR) (Not Detect) SARS-CoV-2 (PCR) (Not Detecte) Coronavirus NL63 (PCR) (Not Detect) Human Metapneumovir PCR (Not Detect) Influenza Type A (PCR) (Not Detect) Influenza Type B (PCR) (Not Detect) M. pneumoniae (PCR) (Not Detect) Parainfluenza 1 (PCR) (Not Detect) Parainfluenza 2 (PCR) (Not Detect) Parainfluenza 3 (PCR) (Not Detect) Parainfluenza 4 (PCR) (Not Detect) RSV (PCR) (Not Detect) Entero/Rhino (PCR) (Not Detect) 08/18/22 08/18/22 08/18/22 Range/Units 21:45 21:45 21:45 WBC (4.5-11.0) X10^3/uL RBC (4.5-5.9) X10^6/uL Hgb (13.5-17.5) g/dL Hct (41-53) % MCV (80-100) fL MCH (26-34) PG MCHC (30-36) % RDW (11.6-14.8) % Plt Count (150-400) X10^3/uL Neut % (Auto) (50-75) % Lymph % (Auto) (25-40) % [place] % (Auto) (3-14) % Eos % (Auto) (2-4) % Baso % (Auto) (0-2) % Neut # (Auto) (7190-7476) /uL Lymph # (Auto) (7349-6663) /uL [place] # (Auto) (0-900) /uL Eos # (Auto) (0-450) /uL Baso # (Auto) (0-100) /uL RBC Morphology PT (10.1-12.7) SECONDS INR (0.9-1.3) APTT (26-36) SECONDS Sodium (137-145) mmol/L Potassium (3.4-5.1) mmol/L Chloride (98-107) mmol/L Carbon Dioxide (22-32) mmol/L BUN (9-20) mg/dL Creatinine (0.66-1.25) mg/dL Estimated GFR (>60) mL/min BUN/Creatinine Ratio (6-22) Glucose (80-110) mg/dL Lactate 1.7 (0.7-2.1) mmol/L Calcium (8.4-10.2) mg/dL Total Bilirubin (0.2-1.3) mg/dL AST (17-59) IU/L ALT (<50) IU/L Alkaline Phosphatase (38-126) U/L Total Creatine Kinase 221 H (55-170) U/L CK-MB (CK-2) 11.00 H (<2.37) ng/mL CK-MB (CK-2) Rel Index 5.0 (1.5-5.0) % Troponin I 0.018 (0.01-0.034) ng/mL NT-Pro-B Natriuret Pep 5950 H (<450) pg/mL Total Protein (6.3-8.2) g/dL Albumin (3.5-5.0) g/dL Globulin (1.7-4.1) g/dL Albumin/Globulin Ratio (1.0-2.8) Lipase (23-300) U/L Procalcitonin (<0.5) ng/mL Chlamy pneumoniae PCR Not detected (Not Detect) Adenovirus (PCR) Not detected (Not Detect) B. pertussis DNA (PCR) Not detected (Not Detecte) B.parapertussis DNA PCR Not detected (Not Detecte) Coronavirus OC43 (PCR) Not detected (Not Detect) Coronavirus HKU1 (PCR) Not detected (Not Detect) Coronavirus 229E (PCR) Not detected (Not Detect) SARS-CoV-2 (PCR) Not detected (Not Detecte) Coronavirus NL63 (PCR) Not detected (Not Detect) Human Metapneumovir PCR Not detected (Not Detect) Influenza Type A (PCR) Not detected (Not Detect) Influenza Type B (PCR) Not detected (Not Detect) M. pneumoniae (PCR) Not detected (Not Detect) Parainfluenza 1 (PCR) Not detected (Not Detect) Parainfluenza 2 (PCR) Not detected (Not Detect) Parainfluenza 3 (PCR) Not detected (Not Detect) Parainfluenza 4 (PCR) Not detected (Not Detect) RSV (PCR) Not detected (Not Detect) Entero/Rhino (PCR) Detected H (Not Detect) Urine Dip Bedside Urine Glucose 1000 mg/dl Bedside Urine Bilirubin - Negative Bedside Urine Ketone - Negative Urine Specific [place] 1.010 Bedside Urine Occult Blood - Negative Bedside Urine pH 6.0 Bedside Urine Protein - Negative Bedside Urine Urobilinogen - Negative Bedside Urine Nitrite - Negative Bedside Urine Leukocytes - Negative Esterase Imaging Data Chest x-ray: Radiologist's Impression: PROCEDURE:? XR CHEST 1V ? INDICATIONS:? Flu like symptoms ? TECHNIQUE:? One view of the chest was acquired.? ? COMPARISON:? [facility], CR, XR CHEST 2V, 08/16/2022, 8:24. ? FINDINGS:? ? Surgical changes and devices:? Left chest wall AICD redemonstrated. ? Lungs and pleura:? Visualized lungs are clear.? No pleural effusions or pneumothorax.? ? Mediastinum:? Mediastinal contours are unchanged.? Heart size is enlarged. ? Bones and chest wall:? No suspicious bony lesions.? Overlying soft tissues appear unremarkable.? ? IMPRESSION:? ? 1.? No acute cardiopulmonary disease. ? ? ? Dictated by: Mukesh Renteria M.D. on 08/18/2022 at 23:27 ? ? ECG Data Interpretation: Paced rhythm rate 80 WA interval 334 QRS [address] changes similar to previous EKGs MDM Narrative Medical decision making narrative: The patient is a [place] 81-year-old male presenting today with increasing weakness. He was diagnosed with atypical pneumonia on x-ray 2 days ago started on Augmentin and doxycycline. He does not have any fever or chills. He reports having increasing shortness of breath. He does have history of congestive heart failure found to have congestive heart failure today. He has lower extremity edema on exam in mild crackles bases. BNP is noted to be 5900 which is more elevated than previously in May 2022 was 3170. He was given a dose of Lasix here in the ER he urinated multiple times. He is also positive for entero/rhinovirus likely causing his body aches and fever. He has no leukocytosis elevated lactate or procalcitonin. At this time I do not think he needs to continue her finish her and so his antibiotics. He ambulated in the ED without any signs of hypoxia tachycardia or lightheadedness. This time he really does not need to be admitted to the hospital. Other blood work including creatinine and kidney function is stable. He is chronically hyponatremic with a sodium of 127. Discharge Plan Departure Patient Disposition: Home Clinical Impression: Acute upper respiratory infection, Congestive heart failure Instructions: DI for Heart Failure, DI for Viral Upper Respiratory Infection -- Adult Activity Restrictions/Additional Instructions: *You have been diagnosed with congestive heart failure, upper respiratory infection *What to do: At this time her symptoms likely due to a combination of congestive heart failure in a virus. May do not need to take antibiotics *Continue to take medications as directed May stop taking antibiotics Bumetanide 1 mg twice a day for 3 days then resume to once daily *Follow up with your primary care provider in 2-3 days or call [phone] *Return to ER if you should have increasing weakness falls confusion chest pain or any new, worsening or concerning symptoms Prescriptions: No Action amoxicillin-pot clavulanate 875-125 mg tablet 1 tab PO BID Qty: 10 0RF doxycycline hyclate 100 mg capsule 100 mg PO BID Qty: 10 0RF benzonatate 100 mg capsule 100 mg PO BID PRN (Reason: cough) Qty: 20 0RF ipratropium bromide 42 mcg (0.06 %) spray,non-aerosol 2 spray intranasal TID 4 Days Qty: 15 0RF Rx Instructions: administer into each nostril bisoprolol fumarate 5 mg tablet 5 mg PO TID Qty: 0 digoxin [Lanoxin] 125 mcg (0.125 mg) tablet 125 mcg PO DAILY Qty: 0 warfarin [Coumadin] 2 mg tablet See Rx Instructions PO DAILY Qty: 0 Rx Instructions: 3mg Thursday, Thursday and 2mg all other days, or as directed rosuvastatin 20 mg tablet 20 mg PO DAILY Qty: 90 3RF Disabled Parking Permit 1 ea Not Applicable DAILY Qty: 1 0RF Rx Instructions: As directed trazodone 50 mg tablet 25 - 50 mg PO BEDTIME PRN (Reason: sleep) Qty: 60 5RF Rx Instructions: 1/2 tablet to 1 tablet as needed for sleep omeprazole 20 mg tablet,delayed release (DR/EC) 20 mg PO DAILY Qty: 90 3RF spironolactone [Aldactone] 25 mg tablet 25 mg PO QDAY Qty: 0 colchicine 0.6 mg capsule 1.2 mg PO PRN Patient Comments: Take 2 capsules by mouth now then 1 every 1-2 hours as needed for gout. Max 4 tablets/24 hours for 3 days magnesium oxide 500 mg capsule 500 mg PO DAILY ascorbic acid (vitamin C) 1,000 mg tablet 1,000 mg PO DAILY cholecalciferol (vitamin D3) 25 mcg (1,000 unit) capsule 25 mcg PO DAILY Jardiance 25 mg tablet 25 mg PO DAILY bumetanide 1 mg tablet 1 mg PO DAILY Qty: 90 3RF triamcinolone acetonide 0.1 % cream See Rx Instructions topical DAILY PRN (Reason: Rash on arms) Qty: 30 0RF Rx Instructions: 1 gram daily topically daily PRN; mupirocin 2 % ointment See Rx Instructions topical BID Qty: 22 0RF Rx Instructions: 0.5 gram topically twice a day; metolazone 2.5 mg tablet 2.5 mg PO QWEEK Patient Comments: once a week 1/2 hr prior to bumex metolazone 2.5 mg tablet 2.5 mg PO 2XW Patient Comments: TAKE ONE TABLET BY MOUTH TWO TIMES WEEKLY. TAKE 30 MINUTES PRIOR TO BUMEX. diclofenac sodium 1 % gel 2 g topical QID Qty: 100 0RF Rx Instructions: Apply to area of pain up to 4 times daily Referrals: Danial Estevez MD [Primary Care Provider] - Stand Alone Forms: Patient Portal/API
[2022-08-18] MEDS: FUROSEMIDE 40 MG/4 ML VIAL IV (23:43)
[2022-08-19] VITALS (18 sets, daily range): BP systolic 81–123; BP diastolic 51–78; PULSE 74–81; RESP 15–24; O2SAT 95–100
== END 2022-08-19 06:28 | disposition home or self-care (01) ==
PROVIDERS: Emergency Provider Emergency Medicine; PCP Internal Medicine
DX: J06.9 Acute upper respiratory infection, unspecified (principal); I50.9 Heart failure, unspecified; R06.02 Shortness of breath; R60.9 Edema, unspecified; Z79.01 Long term (current) use of anticoagulants; Z20.822 Contact with and (suspected) exposure to COVID-19
CPT/HCPCS: 36415; 71045; 80053; 81003; 82550; 82553; 83605; 83690; 83880; 84145; 84484; 85025; 85610; 85730; 87040; 87633; 93005; 93010; 96374; 99284; J1940

== ENCOUNTER → 2022-08-26 13:17 | Outpatient (CLI) | payer MEDICARE, SELFPAY ==
[2022-08-26 14:50] LABS: Alanine Aminotransferase 42 IU/L (<50); Albumin 4.3 g/dL (3.5-5.0); Albumin Globulin Ratio 1.3 (1.0-2.8); Alkaline Phosphatase 80 U/L (38-126); Aspartate Aminotransferase 48 IU/L (17-59); BUN Creatinine Ratio 55.4 (6-22); Bilirubin Total 1.6 mg/dL (0.2-1.3); Blood Urea Nitrogen 77 mg/dL (9-20); Carbon Dioxide 36 mmol/L (22-32); Chloride 84 mmol/L (98-107); Estimated Glomerular Filt Rate 51 mL/min (>60); Globulin 3.2 g/dL (1.7-4.1); Glucose 94 mg/dL (80-110); HEMOLYSIS < 15 (0-50); Potassium 4.3 mmol/L (3.4-5.1); Sodium 129 mmol/L (137-145); Total Protein 7.5 g/dL (6.3-8.2)
== END ==
PROVIDERS: PCP Internal Medicine; Referring Provider Nurse Practitioner Acute Care; Visit Provider Nurse Practitioner Acute Care
DX: I50.23 Acute on chronic systolic (congestive) heart failure (principal)
CPT/HCPCS: 36415; 80053

== ENCOUNTER → 2022-09-29 15:55 | Outpatient (CLI) | payer MEDICARE, SELFPAY ==
[2022-09-29 17:26] LABS: Alanine Aminotransferase 24 IU/L (<50); Albumin 4.1 g/dL (3.5-5.0); Albumin Globulin Ratio 1.3 (1.0-2.8); Alkaline Phosphatase 84 U/L (38-126); Aspartate Aminotransferase 33 IU/L (17-59); BUN Creatinine Ratio 33.1 (6-22); Bilirubin Total 1.4 mg/dL (0.2-1.3); Blood Urea Nitrogen 55 mg/dL (9-20); Calcium 9.5 mg/dL (8.4-10.2); Carbon Dioxide 33 mmol/L (22-32); Chloride 89 mmol/L (98-107); Estimated Glomerular Filt Rate 41 mL/min (>60); Globulin 3.1 g/dL (1.7-4.1); Glucose 131 mg/dL (80-110); HEMOLYSIS 26 (0-50); Potassium 5.2 mmol/L (3.4-5.1); Sodium 129 mmol/L (137-145); Total Protein 7.2 g/dL (6.3-8.2)
== END ==
PROVIDERS: Internal Medicine Cardiovascular Disease; PCP Internal Medicine; Referring Provider Nurse Practitioner Acute Care; Visit Provider Nurse Practitioner Acute Care
DX: I50.23 Acute on chronic systolic (congestive) heart failure (principal)
CPT/HCPCS: 36415; 80053

== ENCOUNTER → 2022-10-06 14:20 | Outpatient (CLI) | payer MEDICARE, SELFPAY ==
[2022-10-06 15:20] LABS: Digoxin 0.6 ng/mL (0.8-2.0)
[2022-10-06 15:23] LABS: BUN Creatinine Ratio 33.3 (6-22); Blood Urea Nitrogen 46 mg/dL (9-20); Calcium 9.3 mg/dL (8.4-10.2); Carbon Dioxide 26 mmol/L (22-32); Chloride 92 mmol/L (98-107); Estimated Glomerular Filt Rate 51 mL/min (>60); Glucose 181 mg/dL (80-110); HEMOLYSIS < 15 (0-50); Magnesium 1.8 mg/dL (1.6-2.3); Potassium 5.2 mmol/L (3.4-5.1); Sodium 130 mmol/L (137-145)
== END ==
PROVIDERS: PCP Internal Medicine; Referring Provider Physician Assistant; Visit Provider Physician Assistant
DX: Z79.899 Other long term (current) drug therapy (principal); Z51.81 Encounter for therapeutic drug level monitoring; N28.9 Disorder of kidney and ureter, unspecified; E87.5 Hyperkalemia
CPT/HCPCS: 36415; 80048; 80162; 83735

== ENCOUNTER → 2022-10-15 11:08 | Outpatient (CLI) | payer MEDICARE, SELFPAY ==
[2022-10-15 13:40] LABS: BUN Creatinine Ratio 21.8 (6-22); Blood Urea Nitrogen 32 mg/dL (9-20); Calcium 9.2 mg/dL (8.4-10.2); Carbon Dioxide 28 mmol/L (22-32); Chloride 93 mmol/L (98-107); Estimated Glomerular Filt Rate 47 mL/min (>60); Glucose 177 mg/dL (80-110); HEMOLYSIS < 15 (0-50); Potassium 3.7 mmol/L (3.4-5.1); Sodium 132 mmol/L (137-145)
== END ==
PROVIDERS: PCP Internal Medicine; Referring Provider Physician Assistant; Visit Provider Physician Assistant
DX: E87.5 Hyperkalemia (principal)
CPT/HCPCS: 36415; 80048

== ENCOUNTER → 2022-10-22 10:41 | Outpatient (CLI) | payer MEDICARE, SELFPAY ==
[2022-10-22 11:20] LABS: INR 2.6 (0.9-1.3); Prothrombin Time 30.4 SECONDS (10.1-12.7)
[2022-10-22 11:24] LABS: BUN Creatinine Ratio 28.9 (6-22); Blood Urea Nitrogen 43 mg/dL (9-20); Calcium 9.4 mg/dL (8.4-10.2); Carbon Dioxide 29 mmol/L (22-32); Chloride 94 mmol/L (98-107); Estimated Glomerular Filt Rate 46 mL/min (>60); Glucose 172 mg/dL (80-110); HEMOLYSIS 34 (0-50); Potassium 4.3 mmol/L (3.4-5.1); Sodium 134 mmol/L (137-145)
[2022-10-22 11:28] LABS: Add Manual Diff / Slide Review NO; Basophils Absolute Auto 0 /uL (0-100); Basophils Percent Auto 0.9 % (0-2); Eosinophils Absolute Auto 200 /uL (0-450); Eosinophils Percent Auto 4.6 % (2-4); Hemoglobin 12.8 g/dL (13.5-17.5); Lymphocytes Absolute Auto 1000 /uL (1100-4500); Lymphocytes Percent Auto 17.9 % (25-40); Mean Corpuscular HGB Conc 32.9 % (30-36); Mean Corpuscular Hemoglobin 28.8 PG (26-34); Mean Corpuscular Volume 87.4 fL (80-100); Monocytes Absolute Auto 600 /uL (0-900); Monocytes Percent Auto 11.4 % (3-14); Neutrophils Absolute Auto 3500 /uL (1500-7000); Neutrophils Percent Auto 65.2 % (50-75); Platelet Count 158 X10^3/uL (150-400); Red Blood Cell Count 4.46 X10^6/uL (4.5-5.9); Red Cell Distribution Width 21.1 % (11.6-14.8); White Blood Cell Count 5.3 X10^3/uL (4.5-11.0)
[2022-10-22 11:33] LABS: NT-proBNP (BNP-Adult 18+) 2710 pg/mL (<450)
[2022-10-22 11:44] LABS: RBC Morphology Normal Morphology
== END ==
PROVIDERS: PCP Internal Medicine; Referring Provider Internal Medicine Cardiovascular Disease; Visit Provider Internal Medicine Cardiovascular Disease
DX: I51.9 Heart disease, unspecified (principal)
CPT/HCPCS: 36415; 80048; 83880; 85025; 85610

== ENCOUNTER → 2022-12-02 15:01 | Outpatient (CLI) | payer MEDICARE, SELFPAY ==
[2022-12-02 16:29] LABS: BUN Creatinine Ratio 62.1 (6-22); Blood Urea Nitrogen 105 mg/dL (9-20); Calcium 10.3 mg/dL (8.4-10.2); Estimated Glomerular Filt Rate 40 mL/min (>60); Glucose 162 mg/dL (80-110); HEMOLYSIS < 15 (0-50); Potassium 3.4 mmol/L (3.4-5.1); Sodium 128 mmol/L (137-145)
[2022-12-02 16:37] LABS: Carbon Dioxide 37 mmol/L (22-32)
[2022-12-02 17:37] LABS: Chloride 76 mmol/L (98-107)
== END ==
PROVIDERS: PCP Internal Medicine; Referring Provider Internal Medicine Cardiovascular Disease; Visit Provider Internal Medicine Cardiovascular Disease
DX: I50.9 Heart failure, unspecified (principal)
CPT/HCPCS: 36415; 80048

== ENCOUNTER → 2022-12-10 16:19 | Outpatient (CLI) | payer MEDICARE, SELFPAY ==
[2022-12-10 21:04] LABS: BUN Creatinine Ratio 23.1 (6-22); Blood Urea Nitrogen 33 mg/dL (9-20); Calcium 9.4 mg/dL (8.4-10.2); Carbon Dioxide 28 mmol/L (22-32); Chloride 90 mmol/L (98-107); Estimated Glomerular Filt Rate 49 mL/min (>60); Glucose 195 mg/dL (80-110); HEMOLYSIS < 15 (0-50); Potassium 4.4 mmol/L (3.4-5.1); Sodium 129 mmol/L (137-145)
== END ==
PROVIDERS: PCP Internal Medicine; Referring Provider Internal Medicine Cardiovascular Disease; Visit Provider Internal Medicine Cardiovascular Disease
DX: I50.9 Heart failure, unspecified (principal)
CPT/HCPCS: 36415; 80048

== ENCOUNTER → 2022-12-31 13:49 | Outpatient (CLI) | payer MEDICARE, SELFPAY ==
[2022-12-31 15:47] LABS: BUN Creatinine Ratio 28.9 (6-22); Blood Urea Nitrogen 43 mg/dL (9-20); Calcium 10.5 mg/dL (8.4-10.2); Carbon Dioxide 27 mmol/L (22-32); Chloride 91 mmol/L (98-107); Estimated Glomerular Filt Rate 46 mL/min (>60); Glucose 186 mg/dL (80-110); HEMOLYSIS < 15 (0-50); Potassium 4.5 mmol/L (3.4-5.1); Sodium 131 mmol/L (137-145)
== END ==
PROVIDERS: PCP Internal Medicine; Referring Provider Internal Medicine Cardiovascular Disease; Visit Provider Internal Medicine Cardiovascular Disease
DX: I10 Essential (primary) hypertension (principal)
CPT/HCPCS: 36415; 80048

== ENCOUNTER → 2023-01-27 13:45 | Outpatient (CLI) | payer MEDICARE, SELFPAY ==
[2023-01-27 14:30] LABS: BUN Creatinine Ratio 43.6 (6-22); Blood Urea Nitrogen 61 mg/dL (9-20); Calcium 10.6 mg/dL (8.4-10.2); Carbon Dioxide 34 mmol/L (22-32); Chloride 89 mmol/L (98-107); Estimated Glomerular Filt Rate 50 mL/min (>60); Glucose 203 mg/dL (80-110); HEMOLYSIS < 15 (0-50); Sodium 132 mmol/L (137-145)
== END ==
PROVIDERS: PCP Internal Medicine; Referring Provider Internal Medicine Cardiovascular Disease; Visit Provider Internal Medicine Cardiovascular Disease
DX: I10 Essential (primary) hypertension (principal)
CPT/HCPCS: 36415; 80048

== ENCOUNTER → 2023-02-03 16:25 | Outpatient (CLI) | payer MEDICARE, SELFPAY ==
[2023-02-03 20:13] LABS: Hemoglobin A1C% w Est Avg Glu 7.9 % (4.0-6.0)
== END ==
PROVIDERS: PCP Internal Medicine; Referring Provider Internal Medicine; Visit Provider Internal Medicine
DX: E11.59 Type 2 diabetes mellitus with other circulatory complications (principal)
CPT/HCPCS: 36415; 83036

== ENCOUNTER → 2023-02-13 13:05 | Outpatient (CLI) | payer MEDICARE, SELFPAY ==
[2023-02-13 14:22] LABS: Blood Urea Nitrogen 59 mg/dL (9-20); Calcium 10.2 mg/dL (8.4-10.2); Carbon Dioxide 31 mmol/L (22-32); Chloride 91 mmol/L (98-107); Estimated Glomerular Filt Rate 48 mL/min (>60); Glucose 123 mg/dL (80-110); HEMOLYSIS < 15 (0-50); Potassium 4.5 mmol/L (3.4-5.1); Sodium 131 mmol/L (137-145)
== END ==
PROVIDERS: PCP Internal Medicine; Referring Provider Internal Medicine Cardiovascular Disease; Visit Provider Internal Medicine Cardiovascular Disease
DX: I50.22 Chronic systolic (congestive) heart failure (principal)
CPT/HCPCS: 36415; 80048

== ENCOUNTER → 2023-03-11 11:36 | Outpatient (CLI) | payer MEDICARE, SELFPAY ==
--- NOTE | 2023-03-11 11:38 | DI.RAD.S_ITS ---
PROCEDURE: XR CERVICAL SPINE 2V OR 3V INDICATIONS: neck pain TECHNIQUE: 3 view(s) of the cervical spine were acquired. COMPARISON: None. FINDINGS: Bones: No fractures or dislocations to the C7 level. Mild straightening of the normal cervical lordosis. There are multilevel degenerative changes of the cervical spine with facet and uncovertebral arthropathy, disc height loss with degenerative endplate changes and spurring. This is most pronounced at C6-C7 The lateral masses of C1 appear intact on the odontoid view. No suspicious bony lesions. Soft tissues: No prevertebral soft tissue swelling. IMPRESSION: Multilevel degenerative changes of the cervical spine, severe at C6-C7. Dictated by: Jaxon Pa M.D. on 03/11/2023 at 14:23 Approved by: Jaxon Pa M.D. on 03/11/2023 at 14:24
== END ==
PROVIDERS: PCP Internal Medicine; Referring Provider Physician Assistant; Visit Provider Physician Assistant
DX: M54.2 Cervicalgia (principal); M47.812 Spondylosis without myelopathy or radiculopathy, cervical region
CPT/HCPCS: 72040

== ENCOUNTER → 2023-05-14 13:24 | Outpatient (CLI) | payer MEDICARE, SELFPAY ==
[2023-05-14 14:43] LABS: Hemoglobin 14.8 g/dL (13.5-17.5); Mean Corpuscular HGB Conc 34.4 % (30-36); Mean Corpuscular Hemoglobin 30.7 PG (26-34); Mean Corpuscular Volume 89.3 fL (80-100); Platelet Count 249 X10^3/uL (150-400); Red Blood Cell Count 4.82 X10^6/uL (4.5-5.9); Red Cell Distribution Width 14.1 % (11.6-14.8); White Blood Cell Count 7.9 X10^3/uL (4.5-11.0)
[2023-05-14 14:53] LABS: Hemoglobin A1C% w Est Avg Glu 7.5 % (4.0-6.0)
[2023-05-14 15:16] LABS: Alanine Aminotransferase 17 IU/L (<50); Albumin 4.7 g/dL (3.5-5.0); Albumin Globulin Ratio 1.2 (1.0-2.8); Alkaline Phosphatase 62 U/L (38-126); Aspartate Aminotransferase 28 IU/L (17-59); BUN Creatinine Ratio 36.7 (6-22); Bilirubin Total 1.1 mg/dL (0.2-1.3); Blood Urea Nitrogen 61 mg/dL (9-20); Calcium 10.3 mg/dL (8.4-10.2); Carbon Dioxide 31 mmol/L (22-32); Chloride 88 mmol/L (98-107); Cholesterol 160 mg/dL (140-199); Estimated Glomerular Filt Rate 41 mL/min (>60); Glucose 106 mg/dL (80-110); HDL Cholesterol 25 mg/dL (40-60); HEMOLYSIS < 15 (0-50); LDL Cholesterol Calculated 108 mg/dL (<100); Potassium 4.4 mmol/L (3.4-5.1); Sodium 133 mmol/L (137-145); Total Protein 8.7 g/dL (6.3-8.2); Triglycerides 136 mg/dL (35-150)
[2023-05-14 15:44] LABS: TSH w/ Reflex to FT4 3.12 uIU/mL (0.47-4.68)
[2023-05-14 19:10] LABS: Microalbumin Urine Random 1.9 mg/dL (0-1.6)
[2023-05-14 19:14] LABS: Creatinine Urine Random 63.4 mg/dL; Microalbumi Creatinin Ratio Ur 29.9 ug/mg CR (<30)
== END ==
PROVIDERS: PCP Internal Medicine; Referring Provider Internal Medicine; Visit Provider Internal Medicine
DX: I25.10 Atherosclerotic heart disease of native coronary artery without angina pectoris (principal); E11.59 Type 2 diabetes mellitus with other circulatory complications; I51.9 Heart disease, unspecified; N18.31 Chronic kidney disease, stage 3a; I48.20 Chronic atrial fibrillation, unspecified
CPT/HCPCS: 36415; 80053; 80061; 82043; 82570; 83036; 84443; 85027

== ENCOUNTER 2023-06-01 12:30 | Outpatient (RCR) | payer MEDICARE, SELFPAY ==
--- OUTSIDE RECORDS SUMMARY | 2023-02-27 14:42 | XMS_ITS | Referral Summary ---
Author Name Unknown Organization Merged with [facility] Address [address] [place] [address] Care Team Providers Care Employee Relation Manager Name Role Phone Danial Estevez MD Primary Care Provider [phone] Reason for Referral * Evaluate and Treat (Routine) - Closed Specialty Diagnoses / Procedures Referred By Belén pulido Referred To Contact Cardiac Rehabilitation Diagnoses Chronic systolic heart failure (CMS-HCC) Topher Fountain MD [address] [place] [address] [address] [place] [address] [address] Referral ID Status Reason Start Date Expiration Date Visits Re quested Visits Authorized [id number] Closed 12/15/2022 12/10/2023 1 1 Encounter Details Date Type Department Care Team Description 12/15/2022 Telephone [facility] Cardiology [address], [address] [place] [address] Topher Fountain MD [address] [place] [address] [address] [place] [address] Allergies Active Allergy Reactions Criticality Noted Date Comments Adhesive Tape-Silicones Rash High 12/31/2020 Ciprofloxacin 02/07/2009 Clopidogrel Rash High 11/08/2020 Sacubitril-Valsartan Medium 07/31/2021 Moderate Hypotension Fluconazole Rash Low 10/29/2016 Itraconazole Low 10/26/2020 Empagliflozin Rash Medium 08/29/2022 Metronidazole 02/07/2009 documented as of this encounter (statuses as of 12/26/2022) Medications Medication Sig Dispensed Refills Start Date End Date Status acetaminophen (TYLENOL) 325 mg tablet take 6 tablets throughout the day as needed 0 Active warfarin (COUMADIN) 1 mg tablet 1-1/2 tablets on and Thursday 1mg tablets all other days 0 Active ascorbic acid, vitamin C, (VITAMIN C) 250 mg tablet Take 4 tablets (1,000 mg total) by mouth daily 0 Active zinc 50 mg tablet Take 25 mg by mouth daily 0 Active cholecalciferol, vitamin D3, 25 mcg (1,000 unit) capsule Take 1,000 Units by mouth daily Unsure of exact dose 0 Active colchicine 0.6 mg capsule Take 1 capsule by mouth as needed 0 Active traZODone (DESYREL) 50 mg tablet as needed 0 05/27/2022 Active triamcinolone (KENALOG) 0.1 % ointment as needed 0 07/01/2022 Active metFORMIN (FORTAMET) 500 mg 24 hr tablet Take 1 tablet (500 mg total) by mouth 2 (two) times a day with meals 0 Active omeprazole (PriLOSEC) 20 mg capsule Take 1 capsule (20 mg total) by mouth daily 0 09/03/2022 Active digoxin (LANOXIN) 125 mcg (0.125 mg) tabletIndications: Chronic left ventricular systolic dysfunction Take 1 tablet (125 mcg total) by mouth daily 100 tablet 4 11/04/2022 Active bisoprolol (ZEBETA) 5 mg tabletIndications: Chronic left ventricular systolic dysfunction Take 1 tablet (5 mg total) by mouth 3 (three) times a day 270 tablet 3 11/04/2022 11/04/2023 Active metOLazone (ZAROXOLYN) 2.5 mg tabletIndications: Chronic left ventricular systolic dysfunction Take 1 tablet (2.5 mg total) by mouth every 14 (fourteen) days Take 30 minutes before taking Torsemide 6 tablet 3 11/04/2022 Active Additional Information Patient not taking.Reported on 12/08/2022 spironolactone (ALDACTONE) 25 mg tabletIndications: Chronic left ventricular systolic dysfunction Take 0.5 tablets (12.5 mg total) by mouth daily 45 tablet 3 11/04/2022 11/04/2023 Active torsemide (DEMADEX) 20 mg tabletIndications: Chronic left ventricular systolic dysfunction Take 1 tablet (20 mg total) by mouth 2 (two) times a day 180 tablet 3 11/04/2022 11/04/2023 Active magnesium oxide (MAG-OX) 400 mg (241.3 mg magnesium) tablet Take 2 tablets (800 mg total) by mouth as needed (muscle cramps) 30 tablet 3 11/04/2022 Active documented as of this encounter (statuses as of 12/26/2022) Active Problems Problem Noted Date Diagnosed Date Non-rheumatic mitral regurgitation 08/04/2018 Overview: Moderate to severe MR reduced to mild to moderate after MV clip. Last Assessment & Plan: Patient has some degree of worsening of his mitral regurgitation. Appears to be a functional MR. The patient will proceed with complete heart catheterization to check cardiopulmonary pressures as well as to make sure there is no evidence of coronary disease since he does have regional wall motion abnormalities on his echocardiogram. Patient has worsening ejection fraction as well. We will schedule a transesophageal echocardiogram after he has completed his complete heart catheterization and then we will refer him to cardiac down at [facility] to assess for possible mitral valve clipping if there is no other potential cause for his increased dyspnea on exertion. Diabetes mellitus type II, non insulin dependent 01/13/2018 Mixed hyperlipidemia 01/13/2018 Last Assessment & Plan: Recommend a recheck his lipid profile prior to starting statin since he has modified his diet and has had weight loss. He has no clearcut indication for statin except for hyperlipidemia. He has no history of CAD or PAD. Hypertension 12/24/2016 Last Assessment & Plan: Hypertension is stable. Continue current treatment regimen. Dietary sodium restriction. Regular aerobic exercise. Continue current medications. Ambulatory blood pressure monitoring. Blood pressure will be reassessed at the next regular appointment. 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 Normal function on last interrogation. Chronic left ventricular systolic dysfunction Last Assessment & Plan: Stable. Mildly hypervolemic on examination. NYHA class II. Continue with current medications. Consider Jardiance instead of metformin to reduce CV events. Blood work to recheck electrolytes. Increase spironolactone to 25 mg once a day. Please be aware that he does have asymptomatic hypotension. Non-ischemic cardiomyopathy 11/22/2014 Last Assessment & Plan: Stable. Euvolemic on examination. But now has NYHA class IIIa. Patient is on pretty good medications. He does have dyspnea on exertion but has no overt evidence of congestive heart failure at rest. For now we will defer any aggressive increase of his diuretic therapy since he does have history of low blood pressure. EF is now 15%. PVC (premature ventricular contraction) 11/23/19 15 S/P ablation of atrial flutter 11/22/2014 documented as of this encounter (statuses as of 12/26/2022) Resolved Problems Problem Noted Date Diagnosed Date Resolved Date Atrial flutter 11/22/2014 07/22/2017 documented as of this encounter (statuses as of 12/26/2022) Immunizations Name Administration Dates Next Due Vfxtus-SCVI-WwU-2 Vaccine 06/22/2020,05/25/2020 documented as of this encounter Social History Tobacco Use Types Packs/Day Years Used Date Smoking Tobacco: Former Cigarettes 0.5 10 0 03/30/1958 - 03/30/1968 Smokeless Tobacco: Never Alcohol Use Standard Drinks/Week Comments Not Currently 0 (1 standard drink = 0.6 oz pur e alcohol) Sex and Gender Information Value Date Recorded Sex Assigned at Male 08/22/2019 11:10 PM PDT Gender Identity Male 08/22/2019 11:10 PM PDT Sexual Orientation Straight 08/22/2019 11 :10 PM PDT Job Start Date Occupation Industry Not on file Not on file Not on file documented as of this encounter Miscellaneous Notes * Addendum Note - Topher Fountain MD - 12/15/2022 4:40 PM PDTAddended by: TOPHER FOUNTAIN on: 12/15/2022 04:40 PM Modules accepted: Orders * Telephone Encounter - Eli Grimaldo MA - 12/15/2022 4:08 PM PDT Please advise. Thank you * Telephone Encounter - Laura Wright - 12/15/2022 3:37 PM PDT Osiris, from cardiac rehab call and stated dx 151.9 will not be covered. It needs to be I50.22, I50.32, I50.42 or I50.89. Please fax new order to [phone]. Thank you documented in this encounter Plan of Treatment Upcoming Encounters Date Type Department Care Team Description 01/12/2023 1:00 PM PDT Office Visit [facility] Cardiology [address], [address] [place] [address] Topher Fountain MD [address] [place] [address] [address] [place], [place] [id number] Scheduled Referrals Name Type Priority Associated Diagnoses Order Schedule Ambulatory Referral to Cardiac Rehabilitation Outpatient Referral Routine Chronic systolic heart failure ([facility]-HCC) Ordered: 12/15/2022 documented as of this encounter Medical Devices Implanted Type Area Customer Support Representative Device Identifier Shelf Expiration Date Model / Serial / Lot Icd-09/20/2013 Implanted:09/20 (Quantity not on file) ICD Chest Medtronic [id number] / [id number] / Generator, Claria Mri Df1 - [id number] Implanted:Qty: 1 on 05/10/2018 at [facility] Medtronic [id number] / / Stent Xience Aury 3.0*18 - [id number] Implanted:Qty: 1 on 11/02/2020 at [facility] MCCRACKEN [id number] / Balloon, Wedge Pressure 7f - [id number] Implanted:Qty: 1 on 10/24/2022 by Topher Fountain MD at [facility] Teleflex: KMedic [id number] / / documented as of this encounter Visit Diagnoses Diagnosis Chronic systolic heart failure (CMS-HCC)- Primary Chronic systolic heart failure documented in this encounter Insurance Payer Benefit Plan / Group Subscriber ID Effective Dates Phone Address Type [employer] MEDICARE MANAGED AARP MEDICARE COMPLETE O [id number] 2022-Prese nt [address] [address] [place] [address] documented as of this encounter Advance Directives Documents on File Type Date Recorded Patient Facilities Director Expl anation Power of Blue Line H[employer] 11/26/2015 Latest Code Status on File Code Status Date Activated Date Inactivated Comments Full Code 10/24/2022 2:50 PM 10/25/2022 2:35 AM Code Status History Code Status Date Activated Date Inactivated Comments Full Code 10/24/2022 11:27 AM 10/24/2022 2:50 PM Full Code 11/02/2020 3:31 PM 11/03/2020 1:10 PM Full Code 10/24/2020 11:07 AM 10/25/2020 2:41 AM Full Code 05/10/2018 3:21 PM 05/11/2018 2:41 AM Care Teams Employee Relation Manager Relationship Specialty Start Date End Date Danial Estevez MD [address] [place] [id number] PCP - General Internal Medicine 07/23/22 documented as of this encounter
== END 2023-06-01 14:00 ==
LOC: CAR 12:30
PROVIDERS: PCP Internal Medicine; Referring Provider Internal Medicine Cardiovascular Disease; Visit Provider Internal Medicine Cardiovascular Disease
DX: I51.9 Heart disease, unspecified (principal)
CPT/HCPCS: 93798

== ENCOUNTER → 2023-08-04 10:37 | Outpatient (CLI) | payer MEDICARE, SELFPAY ==
[2023-08-04 11:17] LABS: Influenza A - CEPHEID Flu A NEGATIVE (NEGATIVE); Influenza B - CEPHEID Flu B NEGATIVE (NEGATIVE); Respiratory Syncytial Virus Negative (Negative)
[2023-08-04 11:18] LABS: COVID-19 CEPHEID 4-PLEX PCR Negative (Negative)
== END ==
PROVIDERS: PCP Internal Medicine; Visit Provider Physician Assistant
DX: R05.9 Cough, unspecified (principal)
CPT/HCPCS: 0241U

== ENCOUNTER → 2023-08-04 11:00 | Outpatient (CLI) | payer MEDICARE, SELFPAY ==
--- NOTE | 2023-08-04 11:06 | DI.RAD.S_ITS ---
PROCEDURE: XR CHEST 2V INDICATIONS: chest congestion TECHNIQUE: 2 views of the chest were acquired. COMPARISON: [facility], CR, XR CHEST 1V, 08/18/2022, 21:40. FINDINGS: Surgical changes and devices: Pacemaker. Lungs and pleura: Lungs are clear. No pleural effusions or pneumothorax. Mediastinum: Mediastinal contours are normal. Heart size is enlarged. Bones and chest wall: No suspicious bony abnormalities. Soft tissues appear unremarkable. IMPRESSION: No acute pulmonary process. Dictated by: Joyce Mcgovern M.D. on 08/04/2023 at 12:55 Approved by: Joyce Mcgovern M.D. on 08/04/2023 at 12:55
== END ==
PROVIDERS: PCP Internal Medicine; Referring Provider Physician Assistant; Visit Provider Physician Assistant
DX: R05.9 Cough, unspecified (principal)
CPT/HCPCS: 0241U; 71046

== ENCOUNTER → 2023-10-23 11:37 | Outpatient (CLI) | payer MEDICARE, SELFPAY ==
[2023-10-23 12:59] LABS: Alanine Aminotransferase 20 IU/L (<50); Albumin 4.5 g/dL (3.5-5.0); Albumin Globulin Ratio 1.4 (1.0-2.8); Alkaline Phosphatase 63 U/L (38-126); Aspartate Aminotransferase 28 IU/L (17-59); BUN Creatinine Ratio 28.7 (6-22); Bilirubin Total 0.9 mg/dL (0.2-1.3); Blood Urea Nitrogen 49 mg/dL (9-20); Calcium 10.1 mg/dL (8.4-10.2); Carbon Dioxide 27 mmol/L (22-32); Chloride 91 mmol/L (98-107); Estimated Glomerular Filt Rate 39 mL/min (>60); Globulin 3.3 g/dL (1.7-4.1); Glucose 268 mg/dL (80-110); HEMOLYSIS < 15 (0-50); Potassium 4.9 mmol/L (3.4-5.1); Sodium 131 mmol/L (137-145); Total Protein 7.8 g/dL (6.3-8.2)
[2023-10-23 13:07] LABS: NT-proBNP (BNP-Adult 18+) 4180 pg/mL (<450)
== END ==
PROVIDERS: PCP Internal Medicine; Referring Provider Internal Medicine Cardiovascular Disease; Visit Provider Internal Medicine Cardiovascular Disease
DX: I25.10 Atherosclerotic heart disease of native coronary artery without angina pectoris (principal); I51.9 Heart disease, unspecified
CPT/HCPCS: 36415; 80053; 83880

== ENCOUNTER → 2023-11-16 14:56 | Outpatient (CLI) | payer MEDICARE, SELFPAY ==
[2023-11-16 15:50] LABS: Hemoglobin A1C% w Est Avg Glu 7.7 % (4.0-6.0)
[2023-11-16 16:02] LABS: BUN Creatinine Ratio 24.6 (6-22); Blood Urea Nitrogen 48 mg/dL (9-20); Carbon Dioxide 27 mmol/L (22-32); Chloride 95 mmol/L (98-107); Estimated Glomerular Filt Rate 33 mL/min (>60); Glucose 151 mg/dL (80-110); HEMOLYSIS < 15 (0-50); Potassium 4.8 mmol/L (3.4-5.1); Sodium 134 mmol/L (137-145)
== END ==
LOC: LAB 14:56
PROVIDERS: PCP Internal Medicine; Referring Provider Internal Medicine; Visit Provider Internal Medicine
DX: E11.42 Type 2 diabetes mellitus with diabetic polyneuropathy (principal); N18.31 Chronic kidney disease, stage 3a
CPT/HCPCS: 36415; 80048; 83036

== ENCOUNTER → 2023-11-18 11:35 | Outpatient (CLI) | payer MEDICARE, SELFPAY ==
[2023-11-18 19:33] LABS: BUN Creatinine Ratio 25.5 (6-22); Blood Urea Nitrogen 49 mg/dL (9-20); Calcium 10.2 mg/dL (8.4-10.2); Carbon Dioxide 26 mmol/L (22-32); Chloride 93 mmol/L (98-107); Estimated Glomerular Filt Rate 34 mL/min (>60); Glucose 213 mg/dL (80-110); HEMOLYSIS < 15 (0-50); Sodium 133 mmol/L (137-145)
[2023-11-18 19:35] LABS: Digoxin 0.8 ng/mL (0.8-2.0)
== END ==
PROVIDERS: PCP Internal Medicine; Referring Provider Physician Assistant; Visit Provider Physician Assistant
DX: N28.9 Disorder of kidney and ureter, unspecified (principal)
CPT/HCPCS: 36415; 80048; 80162

== ENCOUNTER → 2023-12-03 08:55 | Outpatient (CLI) | payer MEDICARE, SELFPAY ==
[2023-12-03 10:19] LABS: BUN Creatinine Ratio 26.3 (6-22); Blood Urea Nitrogen 40 mg/dL (9-20); Calcium 9.7 mg/dL (8.4-10.2); Carbon Dioxide 26 mmol/L (22-32); Chloride 96 mmol/L (98-107); Estimated Glomerular Filt Rate 45 mL/min (>60); Glucose 247 mg/dL (80-110); HEMOLYSIS < 15 (0-50); Potassium 4.2 mmol/L (3.4-5.1); Sodium 134 mmol/L (137-145)
== END ==
PROVIDERS: PCP Internal Medicine; Referring Provider Physician Assistant; Visit Provider Physician Assistant
DX: N28.9 Disorder of kidney and ureter, unspecified (principal)
CPT/HCPCS: 36415; 80048

== ENCOUNTER → 2023-12-12 13:08 | Outpatient (CLI) | payer MEDICARE, SELFPAY ==
[2023-12-12 14:39] LABS: Influenza A - CEPHEID Flu A NEGATIVE (NEGATIVE); Influenza B - CEPHEID Flu B NEGATIVE (NEGATIVE); Respiratory Syncytial Virus Negative (Negative)
[2023-12-12 14:47] LABS: COVID-19 CEPHEID 4-PLEX PCR Negative (Negative)
== END ==
PROVIDERS: PCP Internal Medicine; Visit Provider Nurse Practitioner Family
DX: R05.9 Cough, unspecified (principal)
CPT/HCPCS: 0241U

== ENCOUNTER → 2023-12-30 16:40 | Outpatient (CLI) | payer MEDICARE, SELFPAY ==
[2023-12-30 17:51] LABS: BUN Creatinine Ratio 25.3 (6-22); Blood Urea Nitrogen 42 mg/dL (9-20); Calcium 9.8 mg/dL (8.4-10.2); Carbon Dioxide 29 mmol/L (22-32); Chloride 93 mmol/L (98-107); Estimated Glomerular Filt Rate 40 mL/min (>60); Glucose 186 mg/dL (80-110); HEMOLYSIS < 15 (0-50); Sodium 132 mmol/L (137-145)
== END ==
PROVIDERS: PCP Internal Medicine; Referring Provider Internal Medicine Cardiovascular Disease; Visit Provider Internal Medicine Cardiovascular Disease
DX: I50.9 Heart failure, unspecified (principal); I50.22 Chronic systolic (congestive) heart failure; I50.23 Acute on chronic systolic (congestive) heart failure
CPT/HCPCS: 36415; 80048

== ENCOUNTER 2024-01-22 18:44 | Emergency (ER) | payer MEDICARE, SELFPAY ==
[2024-01-22 18:45] VITALS: BP 119/65; PULSE 74; RESP 16; TEMP 36.4; O2SAT 100; BMI 19.2
--- NOTE | 2024-01-22 18:49 | ED_ITS ---
HPI - Extremity Injury (Upper) General Chief Complaint: Skin/Abscess/Foreign Body Stated Complaint: L Arm Rash, Cellulitis Time Seen by Provider: 01/22/24 18:49 History of Present Illness HPI narrative: 83-year-old male with one-week duration left upper arm redness, took a photo of it sent to his primary care physician Dr Estevez who thought it might be cellulitis and advised patient come here for likely start of antibiotics. No fevers or chills. He had sinus infection last month, had a course of Augmentin, currently not on any antibiotics. He gets blood draws, punctures both arms, otherwise no recent trauma. No areas of redness right upper extremity, or both lower extremities, nor other parts of his body. Related Data Home Medications Medication Instructions Recorded Confirmed bisoprolol fumarate 5 mg tablet 5 mg PO TID #0 tabs 07/10/21 08/11/23 cholecalciferol (vitamin D3) 25 25 mcg PO DAILY 07/10/21 08/11/23 mcg (1,000 unit) capsule colchicine 0.6 mg capsule 1.2 mg PO PRN 07/10/21 08/11/23 digoxin 125 mcg (0.125 mg) tablet 125 mcg PO DAILY #0 tabs 07/10/21 08/11/23 (Lanoxin) spironolactone 25 mg tablet 25 mg PO QDAY #0 tabs 07/02/22 08/11/23 (Aldactone) furosemide 40 mg tablet 40 mg PO BID 08/20/22 08/11/23 magnesium oxide 400 mg (241.3 mg 400 mg PO BEDTIME 08/20/22 08/11/23 magnesium) tablet torsemide 20 mg tablet 40 mg PO .COMPLEX 02/03/23 08/11/23 multivitamin 1 tab PO DAILY 11/16/23 11/16/23 Previous Rx's Medication Instructions Recorded diclofenac sodium 1 % topical gel 2 g topical QID #100 grams 10/24/21 Disabled Parking Permit 1 ea Not Applicable DAILY #1 ea 05/02/22 triamcinolone acetonide 0.1 % See Rx Instructions topical DAILY 02/23/23 topical cream PRN Rash on arms #30 grams blood sugar diagnostic (True #100 ea 02/24/23 Metrix Glucose Test Strip) cyclobenzaprine 5 mg tablet 5 mg PO TID PRN muscle spasm #21 03/11/23 tabs hydroxyzine HCl 25 mg tablet 25 mg PO QID PRN itching #30 tabs 03/11/23 omeprazole 20 mg capsule,delayed 20 mg PO DAILY #90 caps 06/19/23 release rosuvastatin 20 mg tablet 20 mg PO DAILY #90 tabs 06/19/23 trazodone 50 mg tablet 25 - 50 mg (0.5 - 1 x 50 mg) PO 08/03/23 BEDTIME PRN sleep #90 tabs albuterol sulfate 90 mcg/actuation 2 puff inhalation Q4-6H PRN 08/04/23 aerosol inhaler shortness of breath or wheezing #6.7 grams benzonatate 200 mg capsule 200 mg PO TID PRN cough #30 caps 08/04/23 fluticasone propionate 50 1 spray intranasal DAILY #16 grams 08/04/23 mcg/actuation nasal spray,suspension (Flonase Allergy Relief) guaifenesin 1,200 mg tablet, 1,200 mg PO Q12H #30 tabs 08/04/23 extended release 12 hr metformin 500 mg tablet 500 mg PO BID diabetes #180 tabs 09/07/23 lancets #100 ea 10/12/23 linaclotide 72 mcg capsule 72 mcg PO DAILY #90 caps 11/16/23 (Linzess) benzonatate 200 mg capsule 200 mg PO BID PRN cough #28 caps 12/12/23 warfarin 2 mg tablet See Rx Instructions PO .COMPLEX 12/29/23 #90 tabs cephalexin 500 mg capsule 500 mg PO QID 7 days #28 caps 01/22/24 Allergies Allergy/AdvReac Type Severity Reaction Status Date / Time empagliflozin Allergy Severe rash Verified 01/22/24 18:50 [From Jardiance] metronidazole Allergy Severe Rash Verified 01/22/24 18:50 ciprofloxacin Allergy Mild Rash Verified 01/22/24 18:50 fluconazole [FLUCONAZOLE] Allergy Mild RASH Verified 01/22/24 18:50 itraconazole [From SPORANOX] Allergy Unknown Verified 01/22/24 18:50 clopidogrel [From Plavix] Allergy Rash Verified 01/22/24 18:50 Adhesive Tape Allergy Severe Rash Uncoded 12/12/23 13:07 Review of Systems Review of Systems Narrative: See HPI Patient History Medical History 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 Slow transit constipation Allergic rhinitis Osteoarthritis of right hip Gout (~2011) Mumps (~1947) Measles Chicken pox (~1946) Vertigo (~2013) Diverticular disease Colon polyps (~2015) Skin cancer (~2008) Eczematous dermatitis Stage 3a chronic kidney disease (CKD) GERD without esophagitis Mixed hyperlipidemia (~2013) Essential hypertension Type 2 diabetes mellitus with cardiac complication (~2016) Systolic CHF, chronic (~2013) Coronary artery disease (~2013) Chronic atrial fibrillation Arrhythmia Surgical History Anesthesia History of varicose vein ligation (~1997) S/P coronary artery stent placement (~2020) Cardiac defibrillator in place (~2015) S/P mitral valve clip implantation (~2020) Pacemaker (~2013) Family History Father History of heart disease Mother Multiple sclerosis Grandfather Cancer Social History details: (Julieta living at the [facility]), daughter in [place], retired Smoking Status: Never smoker Smoking Status: Never smoker alcohol intake frequency: 0-2 drinks per day Substance Use Type: does not use Exam Narrative Exam Narrative: GENERAL: Well-developed patient, in mild distress. HEAD: Atraumatic. Normocephalic. EYES: Pupils equal round and reactive. Extraocular motions intact. No scleral icterus. No injection or drainage. ENT: Nose without bleeding, purulent drainage. Throat without erythema, tonsillar hypertrophy or exudate. Airway patent. NECK: Trachea midline. Non tender CARDIOVASCULAR: Regular rate and rhythm without murmurs, gallops, or rubs. RESPIRATORY: Clear to auscultation. Breath sounds equal bilaterally. No wheezes, rales, or rhonchi. GASTROINTESTINAL: Abdomen soft, non-tender, nondistended. EXTREMITIES: Right anteromedial upper arm redness, photographed looks more intense and larger area a few days ago, but still fairly large area about 20 x 6 cm oval, no palpable cords, no obvious superficial abscess or areas of fluctuance or induration or crepitance. Patient can move his upper arm shoulder and elbow and flex his wrist and forearm easily. BACK: Nontender without deformity or crepitance. No flank tenderness. NEURO: AOx3. Motor functions grossly nonfocal SKIN: No rash or erythema of visible areas Initial Vital Signs Initial Vital Signs: Vital Signs Temperature 97.6 F 01/22/24 18:45 Pulse Rate 74 01/22/24 18:45 Respiratory Rate 16 01/22/24 18:45 Blood Pressure 119/65 01/22/24 18:45 Pulse Oximetry 100 01/22/24 18:45 Oxygen Delivery Method Room Air 01/22/24 18:45 Course Orders Ordered: Discontinued Medications Cephalexin HCl (Cephalexin 250 Mg Capsule) 500 mg PO NOW ONE Stop: 01/22/24 19:19 Last Admin: 01/22/24 19:23 Dose: 500 mg Documented By: DYLAN Vital Signs Vital signs: Vital Signs - 8 hr 01/22/24 18:45 Temperature 97.6 F Pulse Rate 74 Respiratory Rate 16 Blood Pressure 119/65 Pulse Oximetry 100 Oxygen Delivery Method Room Air MDM - Extremity Injury (Upper) MDM Narrative Medical decision making narrative: 83-year-old male with left upper extremity cellulitis, no palpable cord, had a course of Augmentin last month for sinusitis, not currently on antibiotics, suspect cellulitis. Afebrile, sirs screen negative. No labs for now. First dose oral Keflex now, prescription sent to his pharmacy for 7 day course. Follow up advised with his regular doctor early next week for wound check. Return precautions discussed. Discharged home Discharge Plan Departure Patient Disposition: Home Clinical Impression: Cellulitis of left arm Activity Restrictions/Additional Instructions: Redness to left arm, recent blood draws and punctures both arms, course of Augmentin antibiotic for sinus infection last month, currently not on any antibiotic. No fever on triage. Large area of cellulitis but normal vitals, and also good range of motion at elbow and shoulder joint. First dose oral antibiotic given Keflex in the emergency department, prescription sent to your pharmacy. Take antibiotics as prescribed. Advised wound check with your regular doctor early next week. Return to this/nearest emergency department for any change worsening symptoms or any concerns prior Prescriptions: New cephalexin 500 mg capsule 500 mg PO QID 7 Days Qty: 28 0RF No Action fluticasone propionate [Flonase Allergy Relief] 50 mcg/actuation spray,suspension 1 spray intranasal DAILY Qty: 16 0RF Rx Instructions: administer into each nostril albuterol sulfate 90 mcg/actuation HFA aerosol inhaler 2 puff inhalation Q4-6H PRN (Reason: shortness of breath or wheezing) Qty: 6.7 0RF guaifenesin 1,200 mg tablet extended release 12hr 1,200 mg PO Q12H Qty: 30 0RF benzonatate 200 mg capsule 200 mg PO TID PRN (Reason: cough) Qty: 30 0RF benzonatate 200 mg capsule 200 mg PO BID PRN (Reason: cough) Qty: 28 0RF bisoprolol fumarate 5 mg tablet 5 mg PO TID Qty: 0 digoxin [Lanoxin] 125 mcg (0.125 mg) tablet 125 mcg PO DAILY Qty: 0 Disabled Parking Permit 1 ea Not Applicable DAILY Qty: 1 0RF Rx Instructions: As directed spironolactone [Aldactone] 25 mg tablet 25 mg PO QDAY Qty: 0 triamcinolone acetonide 0.1 % cream See Rx Instructions topical DAILY PRN (Reason: Rash on arms) Qty: 30 0RF Rx Instructions: 1 gram daily topically daily PRN; (DME) True Metrix Glucose Test Strip Strip See Rx Instructions .Route Qty: 100 3RF Rx Instructions: As directed to test blood glucose daily omeprazole 20 mg capsule,delayed release(DR/EC) 20 mg PO DAILY Qty: 90 3RF rosuvastatin 20 mg tablet 20 mg PO DAILY Qty: 90 3RF trazodone 50 mg tablet 25 - 50 mg PO BEDTIME PRN (Reason: sleep) Qty: 90 3RF Rx Instructions: 1/2 tablet to 1 tablet as needed for sleep metformin 500 mg tablet 500 mg PO BID Qty: 180 3RF Rx Instructions: Stopping Jardiance (DME) lancets Misc See Rx Instructions .Route Qty: 100 3RF Rx Instructions: As directed to test blood glucose daily colchicine 0.6 mg capsule 1.2 mg PO PRN Patient Comments: Take 2 capsules by mouth now then 1 every 1-2 hours as needed for gout. Max 4 tablets/24 hours for 3 days cholecalciferol (vitamin D3) 25 mcg (1,000 unit) capsule 25 mcg PO DAILY warfarin 2 mg tablet See Rx Instructions PO .COMPLEX Qty: 90 3RF Protocol: Dose Management Condition: Thursday Dose/Route: 2 mg Instruction: 1 x 2 mg tablet Condition: Thursday Dose/Route: 2 mg Instruction: 1 x 2 mg tablet Condition: Thursday Dose/Route: 3 mg Instruction: 1.5 x 2 mg tablets Condition: Thursday Dose/Route: 2 mg Instruction: 1 x 2 mg tablet Condition: Dose/Route: 2 mg Instruction: 1 x 2 mg tablet Condition: Thursday Dose/Route: 2 mg Instruction: 1 x 2 mg tablet Condition: Thursday Dose/Route: 2 mg Instruction: 1 x 2 mg tablet Protocol Text: Adjustment Start Date: Thursday12/29/23 INR Value: 1.6 INR Date: 12/29/23 Recheck Date: 01/26/24 Rx Instructions: Take 3mg (1 1/2 tabs) on Tuesdays and 2mg (1 tab) all other days of the week, or as directed. torsemide 20 mg tablet 40 mg PO .COMPLEX Rx Instructions: 80 mg in am and 40 mg at noon magnesium oxide 400 mg (241.3 mg magnesium) tablet 400 mg PO BEDTIME Patient Comments: TAKE TWO TABLETS BY MOUTH NIGHTLY AT BEDTIME furosemide 40 mg tablet 40 mg PO BID hydroxyzine HCl 25 mg tablet 25 mg PO QID PRN (Reason: itching) Qty: 30 0RF cyclobenzaprine 5 mg tablet 5 mg PO TID PRN (Reason: muscle spasm) Qty: 21 0RF Rx Instructions: use with caution, risk of causing fall multivitamin Tablet 1 tab PO DAILY Linzess 72 mcg capsule 72 mcg PO DAILY Qty: 90 3RF diclofenac sodium 1 % gel 2 g topical QID Qty: 100 0RF Rx Instructions: Apply to area of pain up to 4 times daily Referrals: Danial Estevez MD [Primary Care Provider] - Stand Alone Forms: Patient Portal/API
--- NOTE | 2024-01-22 19:16 | PC.NURSE ---
Pt sitting in ED stretcher speaking with staff. No distress noted at this time. Pt connected to vs monitor with alarms on and audible. Call light within reach. Dr. Magaña now at bedside.
[2024-01-22] MEDS: cephALEXin 250 MG CAPSULE 500 MG PO (19:23)
== END 2024-01-22 19:36 | disposition home or self-care (01) ==
PROVIDERS: Emergency Provider Emergency Medicine; PCP Internal Medicine
DX: L03.114 Cellulitis of left upper limb (principal)
CPT/HCPCS: 99283

== ENCOUNTER → 2024-02-16 14:24 | Outpatient (CLI) | payer MEDICARE, SELFPAY ==
[2024-02-16 15:30] LABS: Hematocrit 36.5 % (41-53); Hemoglobin 12.2 g/dL (13.5-17.5); Mean Corpuscular HGB Conc 33.4 % (30-36); Mean Corpuscular Hemoglobin 29.2 PG (26-34); Mean Corpuscular Volume 87.4 fL (80-100); Platelet Count 229 X10^3/uL (150-400); Red Blood Cell Count 4.18 X10^6/uL (4.5-5.9); Red Cell Distribution Width 15.5 % (11.6-14.8); White Blood Cell Count 8.1 X10^3/uL (4.5-11.0)
[2024-02-16 15:48] LABS: Hemoglobin A1C% w Est Avg Glu 7.8 % (4.0-6.0)
[2024-02-16 16:13] LABS: BUN Creatinine Ratio 29.4 (6-22); Blood Urea Nitrogen 47 mg/dL (9-20); Calcium 9.8 mg/dL (8.4-10.2); Carbon Dioxide 28 mmol/L (22-32); Chloride 91 mmol/L (98-107); Estimated Glomerular Filt Rate 42 mL/min (>60); Glucose 163 mg/dL (80-110); HEMOLYSIS < 15 (0-50); Potassium 4.1 mmol/L (3.4-5.1); Sodium 132 mmol/L (137-145)
== END ==
PROVIDERS: PCP Internal Medicine; Referring Provider Internal Medicine; Visit Provider Internal Medicine
DX: N18.31 Chronic kidney disease, stage 3a (principal); E11.42 Type 2 diabetes mellitus with diabetic polyneuropathy; I50.22 Chronic systolic (congestive) heart failure; I48.20 Chronic atrial fibrillation, unspecified; D68.59 Other primary thrombophilia; I25.10 Atherosclerotic heart disease of native coronary artery without angina pectoris; E78.2 Mixed hyperlipidemia; K21.9 Gastro-esophageal reflux disease without esophagitis
CPT/HCPCS: 36415; 80048; 83036; 85027

== ENCOUNTER 2024-02-29 15:48 | Emergency (ER) | payer MEDICARE, SELFPAY ==
[2024-02-29 16:12] VITALS: BP 93/60; PULSE 75; RESP 16; TEMP 36.4; O2SAT 100; BMI 20.7
--- NOTE | 2024-02-29 16:20 | DI.RAD.S_ITS ---
PROCEDURE: XR WRIST LT MIN 3V INDICATIONS: pain in left wrist through hand TECHNIQUE: 3 views of the wrist were acquired. COMPARISON: None. FINDINGS: Bones: No fractures or dislocations. No suspicious bony lesions. Radiocarpal joint space narrowing with osteophytosis. Large subchondral cystic lesion in the lunate, presumably degenerative. Soft tissues: No suspicious soft tissue calcifications. Chondrocalcinosis. IMPRESSION: Moderate radiocarpal osteoarthritis. This includes a large subchondral bone cyst in the lunate. Chondrocalcinosis, which can be seen in the setting of CPPD, aging, and parathyroid disorders. Dictated by: Prem Bocanegra M.D. on 02/29/2024 at 16:47 Approved by: Prem Bocanegra M.D. on 02/29/2024 at 16:48
--- NOTE | 2024-02-29 16:20 | DI.RAD.S_ITS ---
PROCEDURE: XR HAND LT MIN 3V INDICATIONS: pain in left wrist through hand TECHNIQUE: 3 views of the hand(s) acquired. COMPARISON: None. FINDINGS: Bones: No fractures or dislocations. Carpal bones are normally aligned. No suspicious bony lesions. Interphalangeal joint space narrowing with osteophytosis. Soft tissues: No suspicious soft tissue calcifications. IMPRESSION: No acute bony abnormality. Dictated by: Prem Bocanegra M.D. on 02/29/2024 at 16:46 Approved by: Prem Bocanegra M.D. on 02/29/2024 at 16:46
--- NOTE | 2024-02-29 18:21 | ED_ITS ---
HPI - General Adult <Noemi Lieberman PA-C - Last Filed: 02/29/24 18:25> General Chief complaint: Extremity Injury, Upper Stated complaint: lft hand and wrist px Time Seen by Provider: 02/29/24 17:04 Source: patient Mode of arrival: Wheelchair History of Present Illness HPI narrative: 83-year-old male presents to the ED with 3 days of left wrist pain and swelling. Patient denies any trauma. Onset was spontaneously upon awakening 3 days ago. Patient endorses pain with movement of the wrist. No fever, chills, chest pain, shortness of breath, nausea, vomiting. No numbness, tingling, weakness. Related Data Home Medications Medication Instructions Recorded Confirmed bisoprolol fumarate 5 mg tablet 5 mg PO TID #0 tabs 07/10/21 02/16/24 cholecalciferol (vitamin D3) 25 25 mcg PO DAILY 07/10/21 02/16/24 mcg (1,000 unit) capsule colchicine 0.6 mg capsule 1.2 mg PO PRN 07/10/21 02/16/24 digoxin 125 mcg (0.125 mg) tablet 125 mcg PO DAILY #0 tabs 07/10/21 02/16/24 (Lanoxin) spironolactone 25 mg tablet 25 mg PO QDAY #0 tabs 07/02/22 02/16/24 (Aldactone) furosemide 40 mg tablet 40 mg PO BID 08/20/22 02/16/24 magnesium oxide 400 mg (241.3 mg 400 mg PO BEDTIME 08/20/22 02/16/24 magnesium) tablet multivitamin 1 tab PO DAILY 11/16/23 02/16/24 torsemide 20 mg tablet 60 mg PO .COMPLEX 02/16/24 02/16/24 Previous Rx's Medication Instructions Recorded diclofenac sodium 1 % topical gel 2 g topical QID #100 grams 10/24/21 Disabled Parking Permit 1 ea Not Applicable DAILY #1 ea 05/02/22 triamcinolone acetonide 0.1 % See Rx Instructions topical DAILY 02/23/23 topical cream PRN Rash on arms #30 grams cyclobenzaprine 5 mg tablet 5 mg PO TID PRN muscle spasm #21 03/11/23 tabs hydroxyzine HCl 25 mg tablet 25 mg PO QID PRN itching #30 tabs 12/13/23 omeprazole 20 mg capsule,delayed 20 mg PO DAILY #90 caps 06/19/23 release rosuvastatin 20 mg tablet 20 mg PO DAILY #90 tabs 06/19/23 trazodone 50 mg tablet 25 - 50 mg (0.5 - 1 x 50 mg) PO 08/03/23 BEDTIME PRN sleep #90 tabs albuterol sulfate 90 mcg/actuation 2 puff inhalation Q4-6H PRN 08/04/23 aerosol inhaler shortness of breath or wheezing #6.7 grams benzonatate 200 mg capsule 200 mg PO TID PRN cough #30 caps 08/04/23 fluticasone propionate 50 1 spray intranasal DAILY #16 grams 08/04/23 mcg/actuation nasal spray,suspension (Flonase Allergy Relief) guaifenesin 1,200 mg tablet, 1,200 mg PO Q12H #30 tabs 08/04/23 extended release 12 hr metformin 500 mg tablet 500 mg PO BID diabetes #180 tabs 09/07/23 linaclotide 72 mcg capsule 72 mcg PO DAILY #90 caps 11/16/23 (Linzess) benzonatate 200 mg capsule 200 mg PO BID PRN cough #28 caps 12/12/23 warfarin 2 mg tablet See Rx Instructions PO .COMPLEX 12/29/23 #90 tabs lancets #100 ea 02/04/24 blood sugar diagnostic (True #100 ea 02/16/24 Metrix Glucose Test Strip) cephalexin 500 mg capsule 500 mg PO QID 5 days #20 caps 02/29/24 Allergies Allergy/AdvReac Type Severity Reaction Status Date / Time empagliflozin Allergy Severe rash Verified 02/16/24 13:30 [From Jardiance] metronidazole Allergy Severe Rash Verified 02/16/24 13:30 ciprofloxacin Allergy Mild Rash Verified 02/16/24 13:30 fluconazole [FLUCONAZOLE] Allergy Mild RASH Verified 02/16/24 13:30 itraconazole [From SPORANOX] Allergy Unknown Verified 02/16/24 13:30 clopidogrel [From Plavix] Allergy Rash Verified 02/16/24 13:30 Adhesive Tape Allergy Severe Rash Uncoded 02/16/24 13:30 Review of Systems <Noemi Lieberman PA-C - Last Filed: 02/29/24 18:25> Constitutional Constitutional: Denies chills, Denies fatigue, Denies fever(s), Denies frequent falls, Denies lethargy and Denies weakness Eyes Eyes: Denies change in vision, Denies eye discharge, Denies irritation and Denies loss of vision ENT Ears, Nose, Mouth, and Throat: Denies change in voice, Denies dizziness, Denies neck pain, Denies sore throat and Denies throat swelling Cardiovascular Cardiovascular: Denies chest pain, Denies irregular heart rhythm, Denies lightheadedness, Denies palpitations, Denies dyspnea, Denies dyspnea on exertion and Denies orthopnea Respiratory Respiratory: Denies cough, Denies dyspnea, Denies dyspnea on exertion and Denies wheezing Gastrointestinal Gastrointestinal: Denies abdominal pain, Denies change in bowel habits, Denies diarrhea, Denies nausea and Denies vomiting Musculoskeletal Musculoskeletal: Denies neck pain and Denies numbness Comments: Left wrist pain, swelling Integumentary/Breasts Skin/Breast: Denies pruritus, Denies erythema, Denies rash and Denies wounds Neurologic Neurologic: Denies behavioral changes, Denies confusion, Denies dizziness, Denies frequent falls, Denies loss of vision, Denies numbness and Denies weakness Psychiatric Psychiatric: Denies anxiety, Denies behavioral changes, Denies confusion, Denies depression, Denies homicidal ideation and Denies suicidal ideation Endocrine Endocrine: Denies fatigue, Denies flushing and Denies palpitations Hematologic/Lymphatic Hematologic/Lymphatic: Denies easy bruising Allergic/Immunologic Allergic/Immunologic: Denies urticaria, Denies throat swelling and Denies wheezing Patient History <Noemi Lieberman PA-C - Last Filed: 02/29/24 18:25> Medical History 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 Slow transit constipation Allergic rhinitis Osteoarthritis of right hip Gout (~2011) Mumps (~194) Measles Chicken pox (~194) Vertigo (~2013) Diverticular disease Colon polyps (~2015) Skin cancer (~2008) Eczematous dermatitis Stage 3a chronic kidney disease (CKD) GERD without esophagitis Mixed hyperlipidemia (~2013) Essential hypertension Type 2 diabetes mellitus with cardiac complication (~2016) Systolic CHF, chronic (~2013) Coronary artery disease (~2013) Chronic atrial fibrillation Arrhythmia Surgical History Anesthesia History of varicose vein ligation (~1997) S/P coronary artery stent placement (~2020) Cardiac defibrillator in place (~2015) S/P mitral valve clip implantation (~2020) Pacemaker (~2013) Family History Father History of heart disease Mother Multiple sclerosis Grandfather Cancer Social History details: (Julieta living at the [facility]), daughter in [place], retired Smoking Status: Never smoker Smoking Status: Never smoker alcohol intake frequency: 0-2 drinks per day Substance Use Type: does not use Exam <Noemi Lieberman PA-C - Last Filed: 02/29/24 18:25> Narrative Exam Narrative: Const General:?cooperative, healthy appearing and comfortable HENMT Head:?normal to inspection Ears:?hearing grossly normal bilaterally Nose:?external nose normal Face and sinus:?normal facial exam and sinuses nontender Mouth:?oral mucosae normal Throat:?posterior oropharynx normal Eyes General:?appearance normal, both eyes and all related structures Neck Neck:?normal visual inspection and no lymphadenopathy noted Resp Effort & Inspection:?normal respiratory effort Auscultation:?clear to auscultation bilaterally Cardio Rate:?regular rate Rhythm:?regular rhythm Musculoskeletal Mild swelling of left wrist. No bruising. Range of motion is limited by pain. Wrist is somewhat warm with very mild erythema. No concern for septic arthritis. Neuro General:?patient alert, patient awake and patient oriented x3 Initial Vital Signs Initial Vital Signs: Vital Signs Temperature 97.6 F 02/29/24 16:12 Pulse Rate 75 02/29/24 16:12 Respiratory Rate 16 02/29/24 16:12 Blood Pressure 93/60 02/29/24 16:12 Pulse Oximetry 100 02/29/24 16:12 Oxygen Delivery Method Room Air 02/29/24 16:12 <Yasmine Ramos DO - Last Filed: 02/29/24 19:03> Initial Vital Signs Initial Vital Signs: Vital Signs Temperature 97.6 F 02/29/24 16:12 Pulse Rate 75 02/29/24 16:12 Respiratory Rate 16 02/29/24 16:12 Blood Pressure 93/60 02/29/24 16:12 Pulse Oximetry 100 02/29/24 16:12 Oxygen Delivery Method Room Air 02/29/24 16:12 Course <Noemi Lieberman PA-C - Last Filed: 02/29/24 18:25> Orders Ordered: ED Orders 02/29/24 16:20 XR hand LT min 3V Stat XR wrist LT min 3V Stat Vital Signs Vital signs: Vital Signs - 8 hr 02/29/24 16:12 02/29/24 18:35 02/29/24 18:44 Temperature 97.6 F Pulse Rate 75 75 75 Respiratory Rate 16 16 Blood Pressure 93/60 98/58 L 98/58 L Pulse Oximetry 100 98 98 Oxygen Delivery Method Room Air Room Air Room Air <Yasmine Ramos DO - Last Filed: 02/29/24 19:03> Orders Ordered: ED Orders 02/29/24 16:20 XR hand LT min 3V Stat XR wrist LT min 3V Stat Vital Signs Vital signs: Vital Signs - 8 hr 02/29/24 16:12 02/29/24 18:35 02/29/24 18:44 Temperature 97.6 F Pulse Rate 75 75 75 Respiratory Rate 16 16 Blood Pressure 93/60 98/58 L 98/58 L Pulse Oximetry 100 98 98 Oxygen Delivery Method Room Air Room Air Room Air Medical Decision Making <Noemi Lieberman PA-C - Last Filed: 02/29/24 18:25> MDM Narrative Additional Information: 83-year-old male presents to the ED with 3 days of left wrist pain and swelling. Concern for fracture/dislocation versus musculoskeletal sprain/strain versus cellulitis versus other. X-rays were obtained which were without fractures or dislocations. Patient's symptoms likely due to musculoskeletal sprain/strain versus cellulitis. Prescribed antibiotics. Recommend Tylenol and ice for pain. Recommend follow-up with PCP as soon as possible. ED return precautions discussed with patient. Patient verbalized understanding. Medical records reviewed: Yes Discharge Plan Departure Patient Disposition: Home Clinical Impression: Acute wrist pain Qualifiers: Laterality: left Qualified Code(s): M25.532 - Pain in left wrist Instructions: DI for Wrist Sprain Activity Restrictions/Additional Instructions: You were evaluated in the ED today for left wrist pain. Your x-ray was normal. Your symptoms could be either due to a skin infection/cellulitis versus a wrist sprain. You are being prescribed antibiotics for the next 5 days. Please take those as prescribed. You may also take 1000 mg of Tylenol for pain. Please follow-up with your PCP as soon as possible. Return to the ED if you have worsening symptoms, numbness, tingling, weakness. Prescriptions: New cephalexin 500 mg capsule 500 mg PO QID 5 Days Qty: 20 0RF No Action fluticasone propionate [Flonase Allergy Relief] 50 mcg/actuation spray,suspension 1 spray intranasal DAILY Qty: 16 0RF Rx Instructions: administer into each nostril albuterol sulfate 90 mcg/actuation HFA aerosol inhaler 2 puff inhalation Q4-6H PRN (Reason: shortness of breath or wheezing) Qty: 6.7 0RF guaifenesin 1,200 mg tablet extended release 12hr 1,200 mg PO Q12H Qty: 30 0RF benzonatate 200 mg capsule 200 mg PO TID PRN (Reason: cough) Qty: 30 0RF benzonatate 200 mg capsule 200 mg PO BID PRN (Reason: cough) Qty: 28 0RF bisoprolol fumarate 5 mg tablet 5 mg PO TID Qty: 0 digoxin [Lanoxin] 125 mcg (0.125 mg) tablet 125 mcg PO DAILY Qty: 0 Disabled Parking Permit 1 ea Not Applicable DAILY Qty: 1 0RF Rx Instructions: As directed spironolactone [Aldactone] 25 mg tablet 25 mg PO QDAY Qty: 0 triamcinolone acetonide 0.1 % cream See Rx Instructions topical DAILY PRN (Reason: Rash on arms) Qty: 30 0RF Rx Instructions: 1 gram daily topically daily PRN; omeprazole 20 mg capsule,delayed release(DR/EC) 20 mg PO DAILY Qty: 90 3RF rosuvastatin 20 mg tablet 20 mg PO DAILY Qty: 90 3RF trazodone 50 mg tablet 25 - 50 mg PO BEDTIME PRN (Reason: sleep) Qty: 90 3RF Rx Instructions: 1/2 tablet to 1 tablet as needed for sleep metformin 500 mg tablet 500 mg PO BID Qty: 180 3RF Rx Instructions: Stopping Jardiance (DME) lancets Misc See Rx Instructions .Route Qty: 100 3RF Rx Instructions: As directed to test blood glucose daily colchicine 0.6 mg capsule 1.2 mg PO PRN Patient Comments: Take 2 capsules by mouth now then 1 every 1-2 hours as needed for gout. Max 4 tablets/24 hours for 3 days cholecalciferol (vitamin D3) 25 mcg (1,000 unit) capsule 25 mcg PO DAILY (DME) True Metrix Glucose Test Strip Strip See Rx Instructions .Route Qty: 100 5RF Rx Instructions: As directed to test blood glucose daily warfarin 2 mg tablet See Rx Instructions PO .COMPLEX Qty: 90 3RF Protocol: Dose Management Condition: Thursday Dose/Route: 2 mg Instruction: 1 x 2 mg tablet Condition: Thursday Dose/Route: 2 mg Instruction: 1 x 2 mg tablet Condition: Thursday Dose/Route: 2 mg Instruction: 1 x 2 mg tablet Condition: Thursday Dose/Route: 2 mg Instruction: 1 x 2 mg tablet Condition: Dose/Route: 2 mg Instruction: 1 x 2 mg tablet Condition: Thursday Dose/Route: 2 mg Instruction: 1 x 2 mg tablet Condition: Thursday Dose/Route: 2 mg Instruction: 1 x 2 mg tablet Protocol Text: Adjustment Start Date: Thursday01/26/24 INR Value: 2.5 INR Date: 01/26/24 Recheck Date: 02/23/24 Rx Instructions: Take 3mg (1 1/2 tabs) on Tuesdays and 2mg (1 tab) all other days of the week, or as directed. torsemide 20 mg tablet 60 mg PO .COMPLEX Rx Instructions: 60 mg three times a week. magnesium oxide 400 mg (241.3 mg magnesium) tablet 400 mg PO BEDTIME Patient Comments: TAKE TWO TABLETS BY MOUTH NIGHTLY AT BEDTIME furosemide 40 mg tablet 40 mg PO BID hydroxyzine HCl 25 mg tablet 25 mg PO QID PRN (Reason: itching) Qty: 30 0RF cyclobenzaprine 5 mg tablet 5 mg PO TID PRN (Reason: muscle spasm) Qty: 21 0RF Rx Instructions: use with caution, risk of causing fall multivitamin Tablet 1 tab PO DAILY Linzess 72 mcg capsule 72 mcg PO DAILY Qty: 90 3RF diclofenac sodium 1 % gel 2 g topical QID Qty: 100 0RF Rx Instructions: Apply to area of pain up to 4 times daily Referrals: Danial Estevez MD [Primary Care Provider] - Stand Alone Forms: Patient Portal/API/Survey ED Sign-out <Yasmine Ramos DO - Last Filed: 02/29/24 19:03> Cosign ED Attending Cosignature Attestation: I was immediately available in the department for consultation.
[2024-02-29 18:35] VITALS: BP 98/58; PULSE 75; RESP 16; O2SAT 98
[2024-02-29 18:44] VITALS: BP 98/58; PULSE 75; O2SAT 98
== END 2024-02-29 18:44 | disposition home or self-care (01) ==
PROVIDERS: Emergency Provider Student in an Organized Health Care Education/Training Program; PCP Internal Medicine
DX: M25.532 Pain in left wrist (principal)
CPT/HCPCS: 73110; 73130; 99281; 99283

== ENCOUNTER → 2024-03-01 12:00 | Outpatient (CLI) | payer MEDICARE, SELFPAY ==
[2024-03-01 13:34] LABS: BUN Creatinine Ratio 32.5 (6-22); Blood Urea Nitrogen 51 mg/dL (9-20); Calcium 10.1 mg/dL (8.4-10.2); Carbon Dioxide 25 mmol/L (22-32); Chloride 91 mmol/L (98-107); Estimated Glomerular Filt Rate 43 mL/min (>60); Glucose 220 mg/dL (80-110); HEMOLYSIS < 15 (0-50); Sodium 133 mmol/L (137-145)
== END ==
PROVIDERS: PCP Internal Medicine; Referring Provider Internal Medicine Cardiovascular Disease; Visit Provider Internal Medicine Cardiovascular Disease
DX: I50.9 Heart failure, unspecified (principal); E87.5 Hyperkalemia; N28.9 Disorder of kidney and ureter, unspecified
CPT/HCPCS: 36415; 80048

== ENCOUNTER → 2024-03-21 16:18 | Outpatient (CLI) | payer MEDICARE, SELFPAY ==
[2024-03-21 18:05] LABS: BUN Creatinine Ratio 26.2 (6-22); Blood Urea Nitrogen 44 mg/dL (9-20); Calcium 9.7 mg/dL (8.4-10.2); Carbon Dioxide 25 mmol/L (22-32); Chloride 95 mmol/L (98-107); Estimated Glomerular Filt Rate 40 mL/min (>60); Glucose 188 mg/dL (80-110); HEMOLYSIS < 15 (0-50); Potassium 4.8 mmol/L (3.4-5.1); Sodium 131 mmol/L (137-145)
== END ==
PROVIDERS: PCP Internal Medicine; Referring Provider Internal Medicine Cardiovascular Disease; Visit Provider Internal Medicine Cardiovascular Disease
DX: I50.20 Unspecified systolic (congestive) heart failure (principal)
CPT/HCPCS: 36415; 80048

== ENCOUNTER 2024-03-26 10:23 | Emergency (ER) | payer MEDICARE, SELFPAY ==
[2024-03-26] VITALS (8 sets, daily range): BP systolic 87–109; BP diastolic 56–70; PULSE 75–78; RESP 15–26; TEMP 36.4; O2SAT 97–99
--- NOTE | 2024-03-26 10:47 | DI.RAD.S_ITS ---
PROCEDURE: XR CHEST 1V INDICATIONS: chest pain TECHNIQUE: One view of the chest was acquired. COMPARISON: [facility], CR, XR CHEST 2V, 08/04/2023, 11:15. [facility], CR, XR CHEST 1V, 08/18/2022, 21:40. FINDINGS: Surgical changes and devices: Left chest wall pulse generator with defibrillator leads and biventricular leads in place. Lungs and pleura: Low lung volumes without dense consolidation or pleural effusion. Mediastinum: Cardiomegaly, unchanged Bones and chest wall: Degenerative findings IMPRESSION: Low lung volumes. No dense consolidation or pleural effusion on this limited single view study. Cardiomegaly. Dictated by: Steve Mart M.D. on 03/26/2024 at 10:09 Approved by: Steve Mart M.D. on 03/26/2024 at 10:09
--- NOTE | 2024-03-26 10:51 | EKG_ITS ---
[place] [id number] [place] [id number] Test Date: 2024-03-26 Pat Name: Sam Blancas Department: [facility] Room: Gender: Male Rn Navigator: EILEEN : 1940 Requested By: Order Number: [id number] Reading MD: Claudio Madrid Measurements Intervals [place] Rate: 75 P: ID: QRS: 253 QRSD: 172 T: 74 QT: 464 QTc: 518 Interpretive Statements AV dual-paced rhythm with occasional ventricular-paced complexes Biventricular pacemaker detected Electronically Signed On 03-31-2024 9:06:46 PST by Claudio Madrid
--- NOTE | 2024-03-26 10:59 | ED_ITS ---
HPI - SOB/Dyspnea General Chief Complaint: Shortness of Breath/Dyspnea Stated Complaint: Per patient , Having Heart Issues Time Seen by Provider: 03/26/24 10:59 Source: patient Mode of arrival: Ambulatory Limitations: no limitations History of Present Illness HPI Narrative: 83-year-old male history of diabetes, hyperlipidemia, hypertension, diabetes, CHF AFib on warfarin, with pacemaker comes into the ED from home for persistent shortness of breath, patient states that has been following up with his PCP for this has been ?on p.o. Lasix without improvement therefore was instructed to be evaluated here in the emergency department. Patient currently not complaining of any actual chest pain, denies any other symptoms such as headache visual disturbances fever chills nausea vomiting abdominal pain or any other GI/ symptoms time. States that the shortness of breath is really only evident whenever he is exerting himself. States that he has not feeling short of breath when is seated/not moving. Related Data Home Medications Medication Instructions Recorded Confirmed bisoprolol fumarate 5 mg tablet 5 mg PO TID #0 tabs 07/10/21 02/16/24 cholecalciferol (vitamin D3) 25 25 mcg PO DAILY 07/10/21 02/16/24 mcg (1,000 unit) capsule colchicine 0.6 mg capsule 1.2 mg PO PRN 07/10/21 02/16/24 digoxin 125 mcg (0.125 mg) tablet 125 mcg PO DAILY #0 tabs 07/10/21 02/16/24 (Lanoxin) spironolactone 25 mg tablet 25 mg PO QDAY #0 tabs 07/02/22 02/16/24 (Aldactone) furosemide 40 mg tablet 40 mg PO BID 08/20/22 02/16/24 magnesium oxide 400 mg (241.3 mg 400 mg PO BEDTIME 08/20/22 02/16/24 magnesium) tablet multivitamin 1 tab PO DAILY 11/16/23 02/16/24 torsemide 20 mg tablet 60 mg PO .COMPLEX 02/16/24 02/16/24 Previous Rx's Medication Instructions Recorded diclofenac sodium 1 % topical gel 2 g topical QID #100 grams 10/24/21 Disabled [address]ing Permit 1 ea Not Applicable DAILY #1 ea 05/02/22 triamcinolone acetonide 0.1 % See Rx Instructions topical DAILY 02/23/23 topical cream PRN Rash on arms #30 grams cyclobenzaprine 5 mg tablet 5 mg PO TID PRN muscle spasm #21 03/11/23 tabs hydroxyzine HCl 25 mg tablet 25 mg PO QID PRN itching #30 tabs 03/11/23 omeprazole 20 mg capsule,delayed 20 mg PO DAILY #90 caps 06/19/23 release rosuvastatin 20 mg tablet 20 mg PO DAILY #90 tabs 06/19/23 trazodone 50 mg tablet 25 - 50 mg (0.5 - 1 x 50 mg) PO 08/03/23 BEDTIME PRN sleep #90 tabs albuterol sulfate 90 mcg/actuation 2 puff inhalation Q4-6H PRN 08/04/23 aerosol inhaler shortness of breath or wheezing #6.7 grams benzonatate 200 mg capsule 200 mg PO TID PRN cough #30 caps 08/04/23 fluticasone propionate 50 1 spray intranasal DAILY #16 grams 08/04/23 mcg/actuation nasal spray,suspension (Flonase Allergy Relief) guaifenesin 1,200 mg tablet, 1,200 mg PO Q12H #30 tabs 08/04/23 extended release 12 hr metformin 500 mg tablet 500 mg PO BID diabetes #180 tabs 09/07/23 linaclotide 72 mcg capsule 72 mcg PO DAILY #90 caps 11/16/23 (Linzess) benzonatate 200 mg capsule 200 mg PO BID PRN cough #28 caps 12/12/23 lancets #100 ea 02/04/24 blood sugar diagnostic (True #100 ea 02/16/24 Metrix Glucose Test Strip) warfarin 2 mg tablet See Rx Instructions PO .COMPLEX 03/01/24 #90 tabs Allergies Allergy/AdvReac Type Severity Reaction Status Date / Time empagliflozin Allergy Severe rash Verified 02/16/24 13:30 [From Jardiance] metronidazole Allergy Severe Rash Verified 02/16/24 13:30 ciprofloxacin Allergy Mild Rash Verified 02/16/24 13:30 fluconazole [FLUCONAZOLE] Allergy Mild RASH Verified 02/16/24 13:30 itraconazole [From SPORANOX] Allergy Unknown Verified 02/16/24 13:30 clopidogrel [From Plavix] Allergy Rash Verified 02/16/24 13:30 Adhesive Tape Allergy Severe Rash Uncoded 02/16/24 13:30 Review of Systems Review of Systems Narrative: General: Denies fever, chills, weight loss HEENT: Denies headache, eye drainage, eye irritation, head trauma, sore throat, voice change Cardiovascular: Denies any chest pain, palpitations, shortness of breath, tachycardia Respiratory: Positive shortness of breath, denies cough, wheeze, stridor GI/: Denies any abdominal pain, nausea, vomiting, diarrhea, bright red blood per rectum, melanotic stools, urinary frequency, urinary retention, dysuria, hematuria MSK: Denies any joint pain, muscle pains, swelling Skin: Denies any rashes, lesions, discoloration Neuro: Denies any headache, lightheadedness, dizziness, fainting, weakness Psych: Denies SI/HI Patient History Medical History 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 Slow transit constipation Allergic rhinitis Osteoarthritis of right hip Gout (~2011) Mumps (~1947) Measles Chicken pox (~1946) Vertigo (~2013) Diverticular disease Colon polyps (~2015) Skin cancer (~2008) Eczematous dermatitis Stage 3a chronic kidney disease (CKD) GERD without esophagitis Mixed hyperlipidemia (~2013) Essential hypertension Type 2 diabetes mellitus with cardiac complication (~2016) Systolic CHF, chronic (~2013) Coronary artery disease (~2013) Chronic atrial fibrillation Arrhythmia Surgical History Anesthesia History of varicose vein ligation (~1997) S/P coronary artery stent placement (~2020) Cardiac defibrillator in place (~2015) S/P mitral valve clip implantation (~2020) Pacemaker (~2013) Family History Father History of heart disease Mother Multiple sclerosis Grandfather Cancer Social History details: (Julieta living at the [facility]), daughter in [place], retired Smoking Status: Never smoker Smoking Status: Never smoker alcohol intake frequency: 0-2 drinks per day Exam Narrative Exam Narrative: General: Cooperative, comfortable, well-developed, not in acute distress HEENT: Normocephalic, atraumatic, PERRLA, normal sclera, eyelids normal, Neck: Active full range of motion, atraumatic Chest: Normal to inspection, negative crepitus, no overlying erythema ecchymosis Respiratory: Normal respiratory effort, not in acute respiratory distress, clear to auscultation bilaterally negative cough, wheeze, tachypnea, rhonchi, rales Cardiology: Regular rate rhythm negative gallop, murmur, rubs GI/: Normal to inspection, soft, nonrigid, no tenderness to palpation, exam deferred MSK: Full range of active range of motion of all 4 extremities, atraumatic Skin: No rashes lesions noted Neuro: Alert awake oriented x3, moves all 4 extremities spontaneously, cranial nerves intact, able to answer all questions appropriately follows commands appropriately Psych: Cooperative, negative suicidal or homicidal ideations Initial Vital Signs Initial Vital Signs: Vital Signs Pulse Rate 75 03/26/24 10:41 Respiratory Rate 21 03/26/24 10:41 Pulse Oximetry 99 03/26/24 10:41 Course Orders Ordered: ED Orders 03/26/24 10:47 XR chest 1V Stat EKG-12 Lead Stat 03/26/24 10:57 Complete Blood Count AUTO DIFF Stat Comprehensive Metabolic Panel Stat Lipase Stat Magnesium Stat NT-proBNP (BNP-Adult 18+) Stat PTT Partial Thromboplastin Froylan Stat Prothrombin Time INR Stat Troponin & CK Cardiac Panel Stat Discontinued Medications Furosemide (Furosemide 40 Mg/4 Ml Vial) 40 mg IV NOW ONE Stop: 03/26/24 12:11 Last Admin: 03/26/24 12:29 Dose: 40 mg Vital Signs Vital signs: Vital Signs - 8 hr 03/26/24 10:41 03/26/24 10:48 03/26/24 11:00 Temperature 97.6 F Pulse Rate 75 75 75 Respiratory Rate 21 24 16 Blood Pressure 102/62 Pulse Oximetry 99 98 99 Oxygen Delivery Method Room Air Room Air 03/26/24 11:00 03/26/24 11:30 03/26/24 11:30 Temperature Pulse Rate 75 Respiratory Rate 21 Blood Pressure 109/66 87/56 L Pulse Oximetry 97 Oxygen Delivery Method 03/26/24 11:33 03/26/24 11:33 03/26/24 11:50 Temperature Pulse Rate 75 78 Respiratory Rate 25 H 20 Blood Pressure 98/64 Pulse Oximetry 97 97 Oxygen Delivery Method 03/26/24 12:00 03/26/24 12:00 03/26/24 12:30 Temperature Pulse Rate 75 75 Respiratory Rate 26 H 15 Blood Pressure 103/70 Pulse Oximetry 98 98 Oxygen Delivery Method 03/26/24 12:30 Temperature Pulse Rate Respiratory Rate Blood Pressure 95/64 Pulse Oximetry Oxygen Delivery Method MDM - SOB/Dyspnea Differential Diagnosis Differential diagnosis: Likely congestive heart failure, community acquired pneumonia and other (Electrolyte abnormality) Lab Data 03/26/24 10:57 03/26/24 10:57 Labs: Lab Results 03/26/24 Range/Units 10:57 WBC 5.5 (4.5-11.0) X10^3/uL RBC 4.32 L (4.5-5.9) X10^6/uL Hgb 12.4 L (13.5-17.5) g/dL Hct 37.4 L (41-53) % MCV 86.5 (80-100) fL MCH 28.6 (26-34) PG MCHC 33.1 (30-36) % RDW 17.4 H (11.6-14.8) % Plt Count 146 L (150-400) X10^3/uL Neut % (Auto) 67.0 (50-75) % Lymph % (Auto) 18.1 L (25-40) % Monroe % (Auto) 11.3 (3-14) % Eos % (Auto) 2.7 (2-4) % Baso % (Auto) 0.9 (0-2) % Neut # (Auto) 3700 (3088-5565) /uL Lymph # (Auto) 1000 L (2016-5617) /uL Monroe # (Auto) 600 (0-900) /uL Eos # (Auto) 100 (0-450) /uL Baso # (Auto) 100 (0-100) /uL PT 31.1 H (9.4-12.5) SECONDS INR 2.8 H (0.9-1.3) APTT 45 H (25.1-36.5) SECONDS Sodium 131 L (137-145) mmol/L Potassium 4.2 (3.4-5.1) mmol/L Chloride 96 L (98-107) mmol/L Carbon Dioxide 24 (22-32) mmol/L BUN 47 H (9-20) mg/dL Creatinine 1.48 H (0.66-1.25) mg/dL Estimated GFR 46 L (>60) mL/min BUN/Creatinine Ratio 31.8 H (6-22) Glucose 329 H D (80-110) mg/dL Calcium 9.6 (8.4-10.2) mg/dL Magnesium 1.7 (1.6-2.3) mg/dL Total Bilirubin 1.2 (0.2-1.3) mg/dL AST 36 (17-59) IU/L ALT 42 (<50) IU/L Alkaline Phosphatase 67 (38-126) U/L Total Creatine Kinase 30 L (55-170) U/L Troponin I 0.013 (0.01-0.034) ng/mL NT-Pro-B Natriuret Pep 5840 H (<450) pg/mL Total Protein 7.2 (6.3-8.2) g/dL Albumin 4.3 (3.5-5.0) g/dL Globulin 2.9 (1.7-4.1) g/dL Albumin/Globulin Ratio 1.5 (1.0-2.8) Lipase 262 (23-300) U/L Imaging Data Chest x-ray: Radiologist's Impression: [address] [address] XRay Report Signed Patient: Sam Blancas MR#: [id number] : 1940 Acct:[id number] Age/Sex: 83 / M Date of Service: 03/26/24 Loc: ED Accession Number: [id number] Procedure: XR chest 1V Ordering Provider: Ahmet Strickland D.O. PROCEDURE: XR CHEST 1V INDICATIONS: chest pain TECHNIQUE: One view of the chest was acquired. COMPARISON: [facility], CR, XR CHEST 2V, 08/04/2023, 11:15. [facility], CR, XR CHEST 1V, 08/18/2022, 21:40. FINDINGS: Surgical changes and devices: Left chest wall pulse generator with defibrillator leads and biventricular leads in place. Lungs and pleura: Low lung volumes without dense consolidation or pleural effusion. Mediastinum: Cardiomegaly, unchanged Bones and chest wall: Degenerative findings IMPRESSION: Low lung volumes. No dense consolidation or pleural effusion on this limited single view study. Cardiomegaly. ECG Data Interpretation: EKG interpreted by ED physician AV dual paced rhythm at 75, QTC 518 No STEMI MDM Narrative Medical decision making narrative: 83-year-old male history of hyperlipidemia hypertension CHF diabetes AFib on warfarin presents to the ED from home for persistent shortness of breath. Patient has been evaluated by his PCP and was instructed to come into the ED for further evaluation treatment. Patient had lab work and imaging performed here in the emergency department. Patient chest x-ray without any consolidation or pleural effusion, patient without any leukocytosis, INR within range at 2.8, patient's creatinine at baseline 1.48, pron BNP elevated at 5840 however patient not requiring any supplemental oxygen, will give dose of IV Lasix and instruct patient to follow up with Cardiology and to continue taking double dose of Lasix. Given patient with out tachycardia, no supplemental oxygen required as well as patient INR within range very low suspicion of PE given at this time. Patient was given strict return precautions he verbalized understanding of this and agrees to being discharged home with outpatient follow up Patient does follow up with Dr. 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 Patient with EF at that time showing 20 25% 1150: Patient did have ambulation trial, 97% on room air with ambulation Discharge Plan Departure Patient Disposition: Home Clinical Impression: CHF (congestive heart failure) Activity Restrictions/Additional Instructions: Please follow up with primary care and Cardiology Please continue to take your increase Lasix as prescribed by your lead medical technologist Please read the discharge instructions sheet carefully and bring all papers to all doctor follow-up visits, as it may contain information that your doctor may want to see. Disease processes change and evolve, if your symptoms worsen or if you develop any new symptoms that are concerning to you please return for evaluation. Your evaluation today does not show any evidence of any life- threatening/serious illnesses requiring admission to the hospital or surgery. Please follow-up with your doctor for re-evaluation in approximately 1 day. Seek immediate medical attention for any worrisome symptoms. *If you do not have a primary care provider please contact the [facility] Resource line at [phone]. They will ask some questions about your medical history and help get you set up with a doctor in the community. Prescriptions: No Action fluticasone propionate [Flonase Allergy Relief] 50 mcg/actuation spray,suspension 1 spray intranasal DAILY Qty: 16 0RF Rx Instructions: administer into each nostril albuterol sulfate 90 mcg/actuation HFA aerosol inhaler 2 puff inhalation Q4-6H PRN (Reason: shortness of breath or wheezing) Qty: 6.7 0RF guaifenesin 1,200 mg tablet extended release 12hr 1,200 mg PO Q12H Qty: 30 0RF benzonatate 200 mg capsule 200 mg PO TID PRN (Reason: cough) Qty: 30 0RF benzonatate 200 mg capsule 200 mg PO BID PRN (Reason: cough) Qty: 28 0RF bisoprolol fumarate 5 mg tablet 5 mg PO TID Qty: 0 digoxin [Lanoxin] 125 mcg (0.125 mg) tablet 125 mcg PO DAILY Qty: 0 Disabled Parking Permit 1 ea Not Applicable DAILY Qty: 1 0RF Rx Instructions: As directed spironolactone [Aldactone] 25 mg tablet 25 mg PO QDAY Qty: 0 triamcinolone acetonide 0.1 % cream See Rx Instructions topical DAILY PRN (Reason: Rash on arms) Qty: 30 0RF Rx Instructions: 1 gram daily topically daily PRN; omeprazole 20 mg capsule,delayed release(DR/EC) 20 mg PO DAILY Qty: 90 3RF rosuvastatin 20 mg tablet 20 mg PO DAILY Qty: 90 3RF trazodone 50 mg tablet 25 - 50 mg PO BEDTIME PRN (Reason: sleep) Qty: 90 3RF Rx Instructions: 1/2 tablet to 1 tablet as needed for sleep metformin 500 mg tablet 500 mg PO BID Qty: 180 3RF Rx Instructions: Stopping Jardiance (DME) lancets Misc See Rx Instructions .Route Qty: 100 3RF Rx Instructions: As directed to test blood glucose daily colchicine 0.6 mg capsule 1.2 mg PO PRN Patient Comments: Take 2 capsules by mouth now then 1 every 1-2 hours as needed for gout. Max 4 tablets/24 hours for 3 days cholecalciferol (vitamin D3) 25 mcg (1,000 unit) capsule 25 mcg PO DAILY (DME) True Metrix Glucose Test Strip Strip See Rx Instructions .Route Qty: 100 5RF Rx Instructions: As directed to test blood glucose daily warfarin 2 mg tablet See Rx Instructions PO .COMPLEX Qty: 90 3RF Protocol: Dose Management Condition: Thursday Dose/Route: 2 mg Instruction: 1 x 2 mg tablet Condition: Thursday Dose/Route: 2 mg Instruction: 1 x 2 mg tablet Condition: Thursday Dose/Route: 2 mg Instruction: 1 x 2 mg tablet Condition: Thursday Dose/Route: 2 mg Instruction: 1 x 2 mg tablet Condition: Dose/Route: 2 mg Instruction: 1 x 2 mg tablet Condition: Thursday Dose/Route: 2 mg Instruction: 1 x 2 mg tablet Condition: Thursday Dose/Route: 2 mg Instruction: 1 x 2 mg tablet Protocol Text: Adjustment Start Date: Thursday03/01/24 INR Value: 2.2 INR Date: 03/01/24 Recheck Date: 03/29/24 Rx Instructions: Take 1 tablet (2mg) total daily; or as directed. torsemide 20 mg tablet 60 mg PO .COMPLEX Rx Instructions: 60 mg three times a week. magnesium oxide 400 mg (241.3 mg magnesium) tablet 400 mg PO BEDTIME Patient Comments: TAKE TWO TABLETS BY MOUTH NIGHTLY AT BEDTIME furosemide 40 mg tablet 40 mg PO BID hydroxyzine HCl 25 mg tablet 25 mg PO QID PRN (Reason: itching) Qty: 30 0RF cyclobenzaprine 5 mg tablet 5 mg PO TID PRN (Reason: muscle spasm) Qty: 21 0RF Rx Instructions: use with caution, risk of causing fall multivitamin Tablet 1 tab PO DAILY Linzess 72 mcg capsule 72 mcg PO DAILY Qty: 90 3RF diclofenac sodium 1 % gel 2 g topical QID Qty: 100 0RF Rx Instructions: Apply to area of pain up to 4 times daily Referrals: Danial Estevez MD [Primary Care Provider] - Stand Alone Forms: Patient Portal/API/Survey
[2024-03-26 11:11] LABS: Add Manual Diff / Slide Review NO; Basophils Absolute Auto 100 /uL (0-100); Basophils Percent Auto 0.9 % (0-2); Eosinophils Absolute Auto 100 /uL (0-450); Eosinophils Percent Auto 2.7 % (2-4); Hematocrit 37.4 % (41-53); Hemoglobin 12.4 g/dL (13.5-17.5); Lymphocytes Absolute Auto 1000 /uL (1100-4500); Lymphocytes Percent Auto 18.1 % (25-40); Mean Corpuscular HGB Conc 33.1 % (30-36); Mean Corpuscular Hemoglobin 28.6 PG (26-34); Mean Corpuscular Volume 86.5 fL (80-100); Monocytes Absolute Auto 600 /uL (0-900); Monocytes Percent Auto 11.3 % (3-14); Neutrophils Absolute Auto 3700 /uL (1500-7000); Platelet Count 146 X10^3/uL (150-400); Red Blood Cell Count 4.32 X10^6/uL (4.5-5.9); Red Cell Distribution Width 17.4 % (11.6-14.8); White Blood Cell Count 5.5 X10^3/uL (4.5-11.0)
[2024-03-26 11:17] LABS: INR 2.8 (0.9-1.3); Prothrombin Time 31.1 SECONDS (9.4-12.5)
[2024-03-26 11:20] LABS: Alanine Aminotransferase 42 IU/L (<50); Albumin 4.3 g/dL (3.5-5.0); Albumin Globulin Ratio 1.5 (1.0-2.8); Alkaline Phosphatase 67 U/L (38-126); Aspartate Aminotransferase 36 IU/L (17-59); BUN Creatinine Ratio 31.8 (6-22); Bilirubin Total 1.2 mg/dL (0.2-1.3); Blood Urea Nitrogen 47 mg/dL (9-20); Calcium 9.6 mg/dL (8.4-10.2); Carbon Dioxide 24 mmol/L (22-32); Chloride 96 mmol/L (98-107); Creatine Kinase 30 U/L (55-170); Estimated Glomerular Filt Rate 46 mL/min (>60); Globulin 2.9 g/dL (1.7-4.1); Glucose 329 mg/dL (80-110); HEMOLYSIS < 15 (0-50); Lipase 262 U/L (23-300); Magnesium 1.7 mg/dL (1.6-2.3); Potassium 4.2 mmol/L (3.4-5.1); Sodium 131 mmol/L (137-145); Total Protein 7.2 g/dL (6.3-8.2)
[2024-03-26 11:27] LABS: PTT Partial Thromboplastin Tim 45 SECONDS (25.1-36.5)
[2024-03-26 11:32] LABS: NT-proBNP (BNP-Adult 18+) 5840 pg/mL (<450); Troponin I 0.013 ng/mL (0.01-0.034)
[2024-03-26] MEDS: FUROSEMIDE 40 MG/4 ML VIAL IV (12:29)
== END 2024-03-26 13:11 | disposition home or self-care (01) ==
PROVIDERS: Emergency Provider Student in an Organized Health Care Education/Training Program; PCP Internal Medicine
DX: I50.9 Heart failure, unspecified (principal); Z95.0 Presence of cardiac pacemaker
CPT/HCPCS: 36415; 71045; 80053; 82550; 83690; 83735; 83880; 84484; 85025; 85610; 85730; 93005; 96374; 99284; J1940

== ENCOUNTER → 2024-04-04 15:53 | Outpatient (CLI) | payer MEDICARE, SELFPAY ==
--- NOTE | 2024-04-04 15:55 | DI.RAD.S_ITS ---
PROCEDURE: XR WRIST LT MIN 3V INDICATIONS: Continued L wrist pain, see XR 02/28 TECHNIQUE: 3 views of the wrist were acquired. COMPARISON: [facility], , XR WRIST LT MIN 3V, 02/29/2024, 16:19. FINDINGS: Bones: No fractures or dislocations. No suspicious bony lesions. 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 IMPRESSION: Stable degenerative arthritic changes Lunate bone cyst also stable Approved by: Jose Bhardwaj M.D. on 04/05/2024 at 18:08
== END ==
PROVIDERS: PCP Internal Medicine; Referring Provider Internal Medicine; Visit Provider Internal Medicine
DX: M85.642 Other cyst of bone, left hand (principal); M11.232 Other chondrocalcinosis, left wrist; M25.532 Pain in left wrist; M25.432 Effusion, left wrist
CPT/HCPCS: 73110

== ENCOUNTER 2024-04-10 13:04 | Emergency (ER) | payer MEDICARE, SELFPAY ==
[2024-04-10] VITALS (13 sets, daily range): BP systolic 93–114; BP diastolic 57–73; PULSE 73–75; RESP 18–34; TEMP 36.4; O2SAT 98–99; BMI 19.5
--- NOTE | 2024-04-10 13:24 | EKG_ITS ---
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
--- NOTE | 2024-04-10 13:24 | DI.RAD.S_ITS ---
PROCEDURE: XR CHEST 1V INDICATIONS: Shortness of breath TECHNIQUE: One view of the chest was acquired. COMPARISON: [facility], CR, XR CHEST 1V, 03/26/2024, 10:53. FINDINGS: Surgical changes and devices: Pacemaker. Lungs and pleura: Lungs are clear. No pleural effusions or pneumothorax. Mediastinum: Mediastinal contours appear normal. Heart size is enlarged. Bones and chest wall: No suspicious bony lesions. Overlying soft tissues appear unremarkable. IMPRESSION: No acute pulmonary process. Dictated by: Joyce Mcgovern M.D. on 04/10/2024 at 15:02 Approved by: Joyce Mcgovern M.D. on 04/10/2024 at 15:03
[2024-04-10 14:16] LABS: Add Manual Diff / Slide Review NO; Basophils Absolute Auto 100 /uL (0-100); Basophils Percent Auto 1.1 % (0-2); Eosinophils Absolute Auto 100 /uL (0-450); Hematocrit 40.1 % (41-53); Hemoglobin 13.2 g/dL (13.5-17.5); Lymphocytes Absolute Auto 1000 /uL (1100-4500); Lymphocytes Percent Auto 16.6 % (25-40); Mean Corpuscular Hemoglobin 28.7 PG (26-34); Mean Corpuscular Volume 86.9 fL (80-100); Monocytes Absolute Auto 500 /uL (0-900); Neutrophils Absolute Auto 4200 /uL (1500-7000); Neutrophils Percent Auto 72.3 % (50-75); Platelet Count 158 X10^3/uL (150-400); Red Blood Cell Count 4.62 X10^6/uL (4.5-5.9); Red Cell Distribution Width 18.3 % (11.6-14.8); White Blood Cell Count 5.8 X10^3/uL (4.5-11.0)
--- NOTE | 2024-04-10 14:21 | PC.NURSE ---
Patient reports intermittent shortness of breath, decrease appetite. Shortness of breath with activity getting significantly worse over the last day or so. Patient reports generalized body aches, increase mucous production, darker in colors green/yellow in morning. No new edema noted.
[2024-04-10 14:24] LABS: INR 2.5 (0.9-1.3); Prothrombin Time 27.6 SECONDS (9.4-12.5)
[2024-04-10 14:34] LABS: Alanine Aminotransferase 55 IU/L (<50); Albumin 4.5 g/dL (3.5-5.0); Albumin Globulin Ratio 1.6 (1.0-2.8); Alkaline Phosphatase 77 U/L (38-126); Aspartate Aminotransferase 67 IU/L (17-59); BUN Creatinine Ratio 41.6 (6-22); Bilirubin Total 1.5 mg/dL (0.2-1.3); Blood Urea Nitrogen 69 mg/dL (9-20); Calcium 9.6 mg/dL (8.4-10.2); Carbon Dioxide 23 mmol/L (22-32); Chloride 94 mmol/L (98-107); Estimated Glomerular Filt Rate 40 mL/min (>60); Globulin 2.8 g/dL (1.7-4.1); Glucose 203 mg/dL (80-110); HEMOLYSIS < 15 (0-50); Potassium 4.4 mmol/L (3.4-5.1); Sodium 131 mmol/L (137-145); Total Protein 7.3 g/dL (6.3-8.2)
--- NOTE | 2024-04-10 14:39 | ED_ITS ---
HPI - General Adult General Chief complaint: Shortness of Breath/Dyspnea Stated complaint: heart failure, sob, chest pain Time Seen by Provider: 04/10/24 13:33 Source: patient and family Mode of arrival: Family Vehicle History of Present Illness HPI narrative: 83-year-old gentleman with complex medical history including congestive heart failure with CardioMEMS implant on October 23, 2022 to measure pulmonary artery pressures for congestive heart failure control. He does have chronic systolic heart failure, pacemaker in place, chronic atrial fibrillation, diabetes, hypertension, hyperlipidemia, chronic kidney disease who complains of significant exacerbation of his baseline exertional dyspnea over the last couple of days. No fevers or chills, no chest pain no change to medication states he has been his diuretics as prescribed. Related Data Home Medications Medication Instructions Recorded Confirmed bisoprolol fumarate 5 mg tablet 5 mg PO TID #0 tabs 07/10/21 02/16/24 cholecalciferol (vitamin D3) 25 25 mcg PO DAILY 07/10/21 02/16/24 mcg (1,000 unit) capsule colchicine 0.6 mg capsule 1.2 mg PO PRN 07/10/21 02/16/24 digoxin 125 mcg (0.125 mg) tablet 125 mcg PO DAILY #0 tabs 07/10/21 02/16/24 (Lanoxin) spironolactone 25 mg tablet 25 mg PO QDAY #0 tabs 07/02/22 02/16/24 (Aldactone) furosemide 40 mg tablet 40 mg PO BID 08/20/22 02/16/24 magnesium oxide 400 mg (241.3 mg 400 mg PO BEDTIME 08/20/22 02/16/24 magnesium) tablet multivitamin 1 tab PO DAILY 11/16/23 02/16/24 torsemide 20 mg tablet 60 mg PO .COMPLEX 02/16/24 02/16/24 Previous Rx's Medication Instructions Recorded diclofenac sodium 1 % topical gel 2 g topical QID #100 grams 10/24/21 Disabled Parking Permit 1 ea Not Applicable DAILY #1 ea 05/02/22 triamcinolone acetonide 0.1 % See Rx Instructions topical DAILY 02/23/23 topical cream PRN Rash on arms #30 grams cyclobenzaprine 5 mg tablet 5 mg PO TID PRN muscle spasm #21 03/11/23 tabs hydroxyzine HCl 25 mg tablet 25 mg PO QID PRN itching #30 tabs 03/11/23 omeprazole 20 mg capsule,delayed 20 mg PO DAILY #90 caps 06/19/23 release rosuvastatin 20 mg tablet 20 mg PO DAILY #90 tabs 06/19/23 trazodone 50 mg tablet 25 - 50 mg (0.5 - 1 x 50 mg) PO 08/03/23 BEDTIME PRN sleep #90 tabs albuterol sulfate 90 mcg/actuation 2 puff inhalation Q4-6H PRN 08/04/23 aerosol inhaler shortness of breath or wheezing #6.7 grams benzonatate 200 mg capsule 200 mg PO TID PRN cough #30 caps 08/04/23 fluticasone propionate 50 1 spray intranasal DAILY #16 grams 08/04/23 mcg/actuation nasal spray,suspension (Flonase Allergy Relief) guaifenesin 1,200 mg tablet, 1,200 mg PO Q12H #30 tabs 08/04/23 extended release 12 hr metformin 500 mg tablet 500 mg PO BID diabetes #180 tabs 09/07/23 linaclotide 72 mcg capsule 72 mcg PO DAILY #90 caps 11/16/23 (Linzess) benzonatate 200 mg capsule 200 mg PO BID PRN cough #28 caps 12/12/23 lancets #100 ea 02/04/24 blood sugar diagnostic (True #100 ea 02/16/24 Metrix Glucose Test Strip) warfarin 2 mg tablet See Rx Instructions PO .COMPLEX 03/01/24 #90 tabs Allergies Allergy/AdvReac Type Severity Reaction Status Date / Time empagliflozin Allergy Severe rash Verified 02/16/24 13:30 [From Jardiance] metronidazole Allergy Severe Rash Verified 02/16/24 13:30 ciprofloxacin Allergy Mild Rash Verified 02/16/24 13:30 fluconazole [FLUCONAZOLE] Allergy Mild RASH Verified 02/16/24 13:30 itraconazole [From SPORANOX] Allergy Unknown Verified 02/16/24 13:30 clopidogrel [From Plavix] Allergy Rash Verified 02/16/24 13:30 Adhesive Tape Allergy Severe Rash Uncoded 02/16/24 13:30 Review of Systems Review of Systems Narrative: Pertinent positive and negative findings as per HPI Patient History Medical History 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 Slow transit constipation Allergic rhinitis Osteoarthritis of right hip Gout (~2011) Mumps (~1947) Measles Chicken pox (~1946) Vertigo (~2013) Diverticular disease Colon polyps (~2015) Skin cancer (~2008) Eczematous dermatitis Stage 3a chronic kidney disease (CKD) GERD without esophagitis Mixed hyperlipidemia (~2013) Essential hypertension Type 2 diabetes mellitus with cardiac complication (~2016) Systolic CHF, chronic (~2013) Coronary artery disease (~2013) Chronic atrial fibrillation Arrhythmia Surgical History Anesthesia History of varicose vein ligation (~1997) S/P coronary artery stent placement (~2020) Cardiac defibrillator in place (~2015) S/P mitral valve clip implantation (~2020) Pacemaker (~2013) Family History Father History of heart disease Mother Multiple sclerosis Grandfather Cancer Social History details: (J[facility] living at the [facility]), daughter in [place], retired Smoking Status: Never smoker Smoking Status: Never smoker alcohol intake frequency: 0-2 drinks per day Exam Initial Vital Signs Initial Vital Signs: Vital Signs Temperature 97.5 F L 04/10/24 13:17 Pulse Rate 73 04/10/24 13:17 Respiratory Rate 18 04/10/24 13:17 Blood Pressure 114/68 04/10/24 13:17 Pulse Oximetry 99 04/10/24 13:17 Oxygen Delivery Method Room Air 04/10/24 13:17 General: Chronically ill-appearing but in no acute distress. Able to give a complete and coherent history. HEENT: Moist mucous membranes, normal sclera with reactive pupils, Neck: No JVD, supple Respiratory: Lungs with minor basilar rales Cardiac: Regular rate and rhythm harsh blowing systolic ejection murmur Abdomen: Soft, nontender, good bowel tones, no flank pain Skin: Warm and dry, no rashes Neurologic: Grossly neurologically intact with no obvious asymmetries or abnormalities Extremities: No trauma, well perfused, no significant lower extremity of the Psych: Cooperative, appropriate insight and affect Course Orders Ordered: ED Orders 04/10/24 13:24 XR chest 1V Stat EKG-12 Lead Stat Measure peak expiratory flow ONCE RT Consult Eval and Treat NOW 04/10/24 14:05 Complete Blood Count AUTO DIFF Stat Comprehensive Metabolic Panel Stat Covid-19 + FLU A/B + RSV - PCR Stat Lactate (Lactic Acid) Stat NT-proBNP (BNP-Adult 18+) Stat Prothrombin Time INR Stat Troponin I Stat 04/10/24 15:18 Urinalysis and Microscopic Stat 04/10/24 16:05 Trop I [Troponin I] Stat 04/10/24 18:42 Consult to [facility] [place] - Hat Mender Stat Vital Signs Vital signs: Vital Signs - 8 hr 04/10/24 13:17 04/10/24 14:03 04/10/24 14:03 Temperature 97.5 F L Pulse Rate 73 75 Respiratory Rate 18 Blood Pressure 114/68 107/68 Pulse Oximetry 99 Oxygen Delivery Method Room Air 04/10/24 14:30 04/10/24 14:30 04/10/24 15:00 Temperature Pulse Rate 75 Respiratory Rate 21 Blood Pressure 107/71 102/71 Pulse Oximetry 98 Oxygen Delivery Method 04/10/24 15:00 04/10/24 15:30 04/10/24 15:30 Temperature Pulse Rate 75 75 Respiratory Rate 26 H 34 H Blood Pressure 95/57 L Pulse Oximetry 99 Oxygen Delivery Method 04/10/24 16:00 04/10/24 16:01 04/10/24 16:01 Temperature Pulse Rate 75 75 Respiratory Rate 26 H 26 H Blood Pressure 94/59 L Pulse Oximetry 98 98 Oxygen Delivery Method Medical Decision Making Lab Data 04/10/24 14:05 04/10/24 14:05 Labs: Lab Results 04/10/24 04/10/24 04/10/24 Range/Units 14:05 15:18 16:05 WBC 5.8 (4.5-11.0) X10^3/uL RBC 4.62 (4.5-5.9) X10^6/uL Hgb 13.2 L (13.5-17.5) g/dL Hct 40.1 L (41-53) % MCV 86.9 (80-100) fL MCH 28.7 (26-34) PG MCHC 33.0 (30-36) % RDW 18.3 H (11.6-14.8) % Plt Count 158 (150-400) X10^3/uL Neut % (Auto) 72.3 (50-75) % Lymph % (Auto) 16.6 L (25-40) % [place] % (Auto) 9.0 (3-14) % Eos % (Auto) 1.0 L (2-4) % Baso % (Auto) 1.1 (0-2) % Neut # (Auto) 4200 (5835-9711) /uL Lymph # (Auto) 1000 L (6246-2787) /uL [place] # (Auto) 500 (0-900) /uL Eos # (Auto) 100 (0-450) /uL Baso # (Auto) 100 (0-100) /uL PT 27.6 H (9.4-12.5) SECONDS INR 2.5 H (0.9-1.3) Sodium 131 L (137-145) mmol/L Potassium 4.4 (3.4-5.1) mmol/L Chloride 94 L (98-107) mmol/L Carbon Dioxide 23 (22-32) mmol/L BUN 69 H (9-20) mg/dL Creatinine 1.66 H (0.66-1.25) mg/dL Estimated GFR 40 L (>60) mL/min BUN/Creatinine Ratio 41.6 H (6-22) Glucose 203 H (80-110) mg/dL Lactate 3.0 H 2.1 (0.7-2.1) mmol/L Calcium 9.6 (8.4-10.2) mg/dL Total Bilirubin 1.5 H (0.2-1.3) mg/dL AST 67 H (17-59) IU/L ALT 55 H (<50) IU/L Alkaline Phosphatase 77 (38-126) U/L Troponin I 0.015 0.013 (0.01-0.034) ng/mL NT-Pro-B Natriuret Pep 7190 H (<450) pg/mL Total Protein 7.3 (6.3-8.2) g/dL Albumin 4.5 (3.5-5.0) g/dL Globulin 2.8 (1.7-4.1) g/dL Albumin/Globulin Ratio 1.6 (1.0-2.8) Urine Color Yellow Urine Appearance Clear Urine pH 5.5 (4.5-8.0) Ur Specific [place] 1.010 (1.000-1.035) Urine Protein Trace H (Negative) Urine Glucose (UA) Negative (Negative) g/dL Urine Ketones Negative (NEGATIVE) Urine Occult Blood Negative (Negative) Urine Nitrate Negative (Negative) Urine Bilirubin Negative (NEGATIVE) Urine Urobilinogen 1.0 (0.2) E.U./dL Ur Leukocyte Esterase Negative (NEGATIVE) Urine RBC 0-1/hpf (0-5/HPF) Urine WBC None seen (0-5/HPF) Ur Squamous Epith Cells 0-1 /hpf (0-5/HPF) Urine Bacteria None seen (None) Ur Culture Indicated? Cult not indicated Vol Urine Centrifuged 10ml (spun) SARS-CoV-2 (PCR) Negative (Negative) Influenza A (RT-PCR) Flu a negative (NEGATIVE) Influenza B (RT-PCR) Flu b negative (NEGATIVE) RSV (PCR) Negative (Negative) MDM Narrative Medical decision making narrative: CC: Dyspnea Complicating co-morbidities: Chronic dyspnea and exertional dyspnea secondary to his known congestive heart failure Data collected from: patient Social determinants of health that may influence the patients condition: Medical records reviewed: Primary care note an annual wellness exam visit from February 16, 2024 is reviewed Differential considered: Exam documented above, pertinent findings include: Lab Test results independently reviewed as above. Pertinent findings: CBC is unremarkable Chemistries show acute kidney injury with creatinine at 1.66 minimally elevated from his baseline. Bilirubin AST ALT are all minimally elevated alk-phos is unremarkable Lactic acid is elevated at 3.0 BNP is elevated at 7190 which his higher than it has been previously Troponin is undetectable Independently reviewed EKG: Biventricular paced Imaging studies independently reviewed: Chest x-ray shows cardiomegaly consistent with prior films no significant infiltrates or cephalization to suggest dramatic volume overload Consultations: Dr Fountain. Notes that cardioMEM numbers are reasonable. Recognizes that he is getting to truly end-stage heart failure and there may not be much to do at this point. Offered IV dobutamine with IV Lasix to see if he can get slightly more diuresed while still helping his kidneys. Recognize that this would be a last ditch effort. Also suggest discussion of palliative care/hospice with the patient. Discussion: 83-year-old gentleman with end-stage congestive heart failure now with continued exertional dyspnea, elevated BNP and worsening renal function. Additional diuresis is not going to be particularly helpful. Care is reviewed with Dr. Fountain and options are discussed with the patient. At this point he would prefer to go home and would like to talk with hospice. I think they have quite a bit to offer him if nothing else some home oxygen for comfort would likely be helpful. Hospice consult is initiated, I talked with the hospice nurse on-call and our socially responsible investment adviser will be faxing face sheet and contact information as well. I did let Dr. Fountain know that hospice consult was requested. Patient is comfortable with going home, oxygen saturations currently at 99% on room air. He does have a neighbor who has been help with all of his medical care and does expect his daughter to arrive from [place] in about 10 days. Questions are answered and he is safe for discharge Discharge Plan Departure Patient Disposition: Home Clinical Impression: Exertional dyspnea, Acute kidney injury Congestive heart failure Qualifiers: Heart failure type: systolic Heart failure chronicity: acute on chronic Q ualified Code(s): I50.23 - Acute on chronic systolic (congestive) heart failure Instructions: DI for Heart Failure Activity Restrictions/Additional Instructions: Thank you for coming in today Your workup shows that your heart failure is slightly worse as is your kidney function. This means that the diuretic to help with the heart failure is going to cause more problems than benefit at this point. I did review your care with both Dr. Estevez and Dr. Fountain. Unfortunately, you do have end-stage congestive heart failure and the symptoms you are experiencing are very consistent with that. We discussed considering hospice care. The goal of hospice is to make sure that you are as comfortable as possible at home for as long as possible. I did contact the on-call hospice nurse and our socially responsible investment adviser will fax over information to the hospice office and they will contact you tomorrow to set up visit and decide if this is the right choice for you. If you feel that you are getting worse, if you are shortness of breath is completely overwhelming at rest or there is more that we are able to help with, you are always welcome to return to the ER Prescriptions: No Action fluticasone propionate [Flonase Allergy Relief] 50 mcg/actuation spray,suspension 1 spray intranasal DAILY Qty: 16 0RF Rx Instructions: administer into each nostril albuterol sulfate 90 mcg/actuation HFA aerosol inhaler 2 puff inhalation Q4-6H PRN (Reason: shortness of breath or wheezing) Qty: 6.7 0RF guaifenesin 1,200 mg tablet extended release 12hr 1,200 mg PO Q12H Qty: 30 0RF benzonatate 200 mg capsule 200 mg PO TID PRN (Reason: cough) Qty: 30 0RF benzonatate 200 mg capsule 200 mg PO BID PRN (Reason: cough) Qty: 28 0RF bisoprolol fumarate 5 mg tablet 5 mg PO TID Qty: 0 digoxin [Lanoxin] 125 mcg (0.125 mg) tablet 125 mcg PO DAILY Qty: 0 Disabled Parking Permit 1 ea Not Applicable DAILY Qty: 1 0RF Rx Instructions: As directed spironolactone [Aldactone] 25 mg tablet 25 mg PO QDAY Qty: 0 triamcinolone acetonide 0.1 % cream See Rx Instructions topical DAILY PRN (Reason: Rash on arms) Qty: 30 0RF Rx Instructions: 1 gram daily topically daily PRN; omeprazole 20 mg capsule,delayed release(DR/EC) 20 mg PO DAILY Qty: 90 3RF rosuvastatin 20 mg tablet 20 mg PO DAILY Qty: 90 3RF trazodone 50 mg tablet 25 - 50 mg PO BEDTIME PRN (Reason: sleep) Qty: 90 3RF Rx Instructions: 1/2 tablet to 1 tablet as needed for sleep metformin 500 mg tablet 500 mg PO BID Qty: 180 3RF Rx Instructions: Stopping Jardiance (DME) lancets Misc See Rx Instructions .Route Qty: 100 3RF Rx Instructions: As directed to test blood glucose daily colchicine 0.6 mg capsule 1.2 mg PO PRN Patient Comments: Take 2 capsules by mouth now then 1 every 1-2 hours as needed for gout. Max 4 tablets/24 hours for 3 days cholecalciferol (vitamin D3) 25 mcg (1,000 unit) capsule 25 mcg PO DAILY (DME) True Metrix Glucose Test Strip Strip See Rx Instructions .Route Qty: 100 5RF Rx Instructions: As directed to test blood glucose daily warfarin 2 mg tablet See Rx Instructions PO .COMPLEX Qty: 90 3RF Protocol: Dose Management Condition: Thursday Dose/Route: 2 mg Instruction: 1 x 2 mg tablet Condition: Thursday Dose/Route: 2 mg Instruction: 1 x 2 mg tablet Condition: Thursday Dose/Route: 2 mg Instruction: 1 x 2 mg tablet Condition: Thursday Dose/Route: 2 mg Instruction: 1 x 2 mg tablet Condition: Dose/Route: 2 mg Instruction: 1 x 2 mg tablet Condition: Thursday Dose/Route: 2 mg Instruction: 1 x 2 mg tablet Condition: Thursday Dose/Route: 2 mg Instruction: 1 x 2 mg tablet Protocol Text: Adjustment Start Date: Thursday03/29/24 INR Value: 2.8 INR Date: 03/26/24 Recheck Date: 04/26/24 Rx Instructions: Take 1 tablet (2mg) total daily; or as directed. torsemide 20 mg tablet 60 mg PO .COMPLEX Rx Instructions: 60 mg three times a week. magnesium oxide 400 mg (241.3 mg magnesium) tablet 400 mg PO BEDTIME Patient Comments: TAKE TWO TABLETS BY MOUTH NIGHTLY AT BEDTIME furosemide 40 mg tablet 40 mg PO BID hydroxyzine HCl 25 mg tablet 25 mg PO QID PRN (Reason: itching) Qty: 30 0RF cyclobenzaprine 5 mg tablet 5 mg PO TID PRN (Reason: muscle spasm) Qty: 21 0RF Rx Instructions: use with caution, risk of causing fall multivitamin Tablet 1 tab PO DAILY Linzess 72 mcg capsule 72 mcg PO DAILY Qty: 90 3RF diclofenac sodium 1 % gel 2 g topical QID Qty: 100 0RF Rx Instructions: Apply to area of pain up to 4 times daily Referrals: Danial Estevez MD [Primary Care Provider] - Stand Alone Forms: Patient Portal/API/Survey
[2024-04-10 14:44] LABS: NT-proBNP (BNP-Adult 18+) 7190 pg/mL (<450); Troponin I 0.015 ng/mL (0.01-0.034)
[2024-04-10 14:54] LABS: Influenza A - CEPHEID Flu A NEGATIVE (NEGATIVE); Influenza B - CEPHEID Flu B NEGATIVE (NEGATIVE); Respiratory Syncytial Virus Negative (Negative)
[2024-04-10 15:07] LABS: COVID-19 CEPHEID 4-PLEX PCR Negative (Negative)
[2024-04-10 15:49] LABS: Reflexed Lactate in 2 Hours Y
[2024-04-10 16:23] LABS: Appearance Urine UA CLEAR; Bilirubin Urine UA NEGATIVE (NEGATIVE); Color Urine UA YELLOW; Glucose Urine UA NEGATIVE (Negative); Ketones Urine UA NEGATIVE (NEGATIVE); Leukocyte Esterase Urine UA NEGATIVE (NEGATIVE); Nitrite Urine UA NEGATIVE (Negative); Occult Blood Urine UA NEGATIVE (Negative); Protein Urine UA TRACE (Negative); pH Urine UA 5.5 (4.5-8.0)
[2024-04-10 16:25] LABS: Lactate 2HR (Lactic Acid Rflx) 2.1 mmol/L (0.7-2.1)
[2024-04-10 16:29] LABS: Bacteria Urine None Seen; Culture Indicated Urine Cult Not Indicated; RBC Urine 0-1/HPF (0-5/HPF); Squamous Epithelial Cell Urine 0-1 /HPF (0-5/HPF); Urine Volume 10mL (spun); WBC Urine None Seen (0-5/HPF)
[2024-04-10 16:54] LABS: Troponin I 0.013 ng/mL (0.01-0.034)
--- NOTE | 2024-04-10 19:15 | CM.SWNOTE ---
ED ASSEMBLER FAUCETS Assessment Note: Pt is a 83yo male, resident of [place], presented to the ED for CHF, Exertional dyspnea, and KELL. Pt lives in a house alone. Pt's Primary Care Provider is Dr. Danial Estevez MD and insurance is [facility]. Reviewed chart and discussed with multidisciplinary team pt's medical status and initial discharge needs. Per ED Provider, pt candidate for Hospice and pt is agreeable. Per ED Provider, Pt has end stage CHF as qualifying hospice diagnosis. ASSEMBLER FAUCETS entered room to meet with patient, introduced self and role. Present in the room is pt's unofficial caregiver/friend, Yaa. Pt endorses he is agreeable with hospice plan. Pt feels supported by friend, Yaa, who has also been a caregiver for his who is now a resident at a memory care facility. ED ASSEMBLER FAUCETS sent referral to [facility] per Provider request who spoke with on-call hospice intake nurse and initiated Hospice referral. Plan: Pt to discharge home with friend to transport, follow up with [facility] for informational phone call to establish care. KIRBY Kim
== END 2024-04-10 19:26 | disposition home or self-care (01) ==
PROVIDERS: Emergency Provider Emergency Medicine; PCP Internal Medicine
DX: I50.23 Acute on chronic systolic (congestive) heart failure (principal); N17.9 Acute kidney failure, unspecified; R06.02 Shortness of breath; R53.83 Other fatigue; Z79.01 Long term (current) use of anticoagulants; R07.9 Chest pain, unspecified; Z95.0 Presence of cardiac pacemaker; R06.00 Dyspnea, unspecified
CPT/HCPCS: 0241U; 36415; 71045; 80053; 81001; 83605; 83880; 84484; 85025; 85610; 93005; 99284

== ENCOUNTER → 2024-05-20 14:54 | Outpatient (ROUT) | payer MEDICARE, SELFPAY ==
[2024-05-20 15:31] LABS: Alanine Aminotransferase 59 IU/L (<50); Albumin 4.1 g/dL (3.5-5.0); Albumin Globulin Ratio 1.6 (1.0-2.8); Alkaline Phosphatase 94 U/L (38-126); Aspartate Aminotransferase 58 IU/L (17-59); BUN Creatinine Ratio 36.9 (6-22); Bilirubin Total 2.5 mg/dL (0.2-1.3); Blood Urea Nitrogen 76 mg/dL (9-20); Calcium 9.3 mg/dL (8.4-10.2); Carbon Dioxide 18 mmol/L (22-32); Chloride 83 mmol/L (98-107); Estimated Glomerular Filt Rate 31 mL/min (>60); Globulin 2.6 g/dL (1.7-4.1); Glucose 167 mg/dL (80-110); HEMOLYSIS < 15 (0-50); Total Protein 6.7 g/dL (6.3-8.2)
[2024-05-20 16:35] LABS: Potassium 5.7 mmol/L (3.4-5.1)
[2024-05-20 16:38] LABS: Sodium 116 mmol/L (137-145)
== END ==
PROVIDERS: PCP Internal Medicine; Visit Provider Family Medicine
DX: I50.22 Chronic systolic (congestive) heart failure (principal)
CPT/HCPCS: 80053

== ENCOUNTER 2024-05-20 18:50 | Inpatient (IN) | payer MEDICARE, OTHER, SELFPAY ==
[2024-05-20] VITALS (10 sets, daily range): BP systolic 94–107; BP diastolic 59–67; PULSE 74–79; RESP 12–24; TEMP 36.2; O2SAT 88–100; BMI 21.1
[2024-05-20 20:07] LABS: Basophils Absolute Auto 100 /uL (0-100); Basophils Percent Auto 0.9 % (0-2); Eosinophils Absolute Auto 100 /uL (0-450); Hematocrit 40.4 % (41-53); Hemoglobin 13.3 g/dL (13.5-17.5); Lymphocytes Absolute Auto 600 /uL (1100-4500); Lymphocytes Percent Auto 9.6 % (25-40); Mean Corpuscular Volume 84.9 fL (80-100); Monocytes Absolute Auto 600 /uL (0-900); Monocytes Percent Auto 9.5 % (3-14); Neutrophils Absolute Auto 5100 /uL (1500-7000); Platelet Count 143 X10^3/uL (150-400); Red Blood Cell Count 4.76 X10^6/uL (4.5-5.9); Red Cell Distribution Width 18.8 % (11.6-14.8); White Blood Cell Count 6.4 X10^3/uL (4.5-11.0)
[2024-05-20 20:16] LABS: Alanine Aminotransferase 59 IU/L (<50); Albumin 3.9 g/dL (3.5-5.0); Albumin Globulin Ratio 1.3 (1.0-2.8); Alkaline Phosphatase 94 U/L (38-126); Aspartate Aminotransferase 60 IU/L (17-59); BUN Creatinine Ratio 37.5 (6-22); Bilirubin Total 2.4 mg/dL (0.2-1.3); Blood Urea Nitrogen 81 mg/dL (9-20); Calcium 9.3 mg/dL (8.4-10.2); Carbon Dioxide 19 mmol/L (22-32); Chloride 83 mmol/L (98-107); Creatine Kinase 109 U/L (55-170); Estimated Glomerular Filt Rate 29 mL/min (>60); Globulin 2.9 g/dL (1.7-4.1); Glucose 123 mg/dL (80-110); HEMOLYSIS 15 (0-50); Lipase 416 U/L (23-300); Total Protein 6.8 g/dL (6.3-8.2)
[2024-05-20 20:20] LABS: Sodium 115 mmol/L (137-145)
[2024-05-20 20:25] LABS: Add Manual Diff / Slide Review SLIDE REVIEW
[2024-05-20 20:26] LABS: Anisocytosis 2+
[2024-05-20 20:27] LABS: Acanthocytes 2+; Burr Cells 2+; Ovalocytes 1+
[2024-05-20 20:28] LABS: Rouleaux 1+; Troponin I < 0.012 ng/mL (0.01-0.034)
--- NOTE | 2024-05-20 21:28 | ED.RECABL ---
HPI - Recheck/Abnormal Lab/Rx General Chief Complaint: Recheck/Abnormal Lab/Rx Stated Complaint: Hyponatremia, confusion, fall Time Seen by Provider: 05/20/24 19:31 Source: patient and EMS Mode of arrival: EMS History of Present Illness HPI narrative: 83-year-old male with history of CHF, diabetes, stage 3 kidney disease, hypertension, coronary artery disease, chronic atrial fibrillation, thrombophilia is a current resident at [facility] sharing the same room with his who has dementia memory problems, though the patient himself does not have memory problems, had been on hospice however apparently decision was to leave hospice with sodium 116 low level blood draw results, to have treatment of this reversible condition. No seizure activity. No decreased mentation. No recent changes in medications. Daughter states they have POLST, would still like to have DNR DNI status, no compressions heart, no shocks, no intubation. But they would like reversible treatment measures. Daughter is requesting admission, patient concurs, they would like further treatment of low sodium problems. Related Data Home Medications Medication Instructions Recorded Confirmed bisoprolol fumarate 5 mg tablet 5 mg PO TID #0 tabs 07/10/21 05/21/24 digoxin 125 mcg (0.125 mg) tablet 125 mcg PO Q OTHER DAY #0 tabs 07/10/21 05/21/24 (Lanoxin) spironolactone 25 mg tablet 25 mg PO QDAY #0 tabs 07/02/22 05/21/24 (Aldactone) torsemide 20 mg tablet 60 mg PO .COMPLEX 02/16/24 05/21/24 aspirin 81 mg tablet 81 mg PO DAILY 05/21/24 05/21/24 bisacodyl 10 mg rectal suppository 10 mg MS DIRECTED 05/21/24 05/21/24 (OneLAX Bisacodyl) cephalexin 500 mg capsule 500 mg PO 4XD 05/21/24 05/21/24 hydrocortisone 2.5 % topical 1 applic topical BID PRN itch 05/21/24 05/21/24 ointment lactulose 15 ml PO DAILY PRN Constipation 05/21/24 05/21/24 mupirocin 2 % topical ointment 2 applic topical TID 05/21/24 05/21/24 Previous Rx's Medication Instructions Recorded Disabled Parking Permit 1 ea Not Applicable DAILY #1 ea 05/02/22 triamcinolone acetonide 0.1 % See Rx Instructions topical DAILY 02/23/23 topical cream PRN Rash on arms #30 grams lancets #100 ea 02/04/24 blood sugar diagnostic (True #100 ea 02/16/24 Metrix Glucose Test Strip) omeprazole 20 mg capsule,delayed 20 mg PO DAILY #90 caps 04/18/24 release Allergies Allergy/AdvReac Type Severity Reaction Status Date / Time empagliflozin Allergy Severe rash Verified 02/16/24 13:30 [From Jardiance] metronidazole Allergy Severe Rash Verified 02/16/24 13:30 morphine Allergy Intermediate Rash Verified 05/21/24 05:24 ciprofloxacin Allergy Mild Rash Verified 02/16/24 13:30 fluconazole [FLUCONAZOLE] Allergy Mild RASH Verified 02/16/24 13:30 itraconazole [From SPORANOX] Allergy Unknown Verified 02/16/24 13:30 clopidogrel [From Plavix] Allergy Rash Verified 02/16/24 13:30 Adhesive Tape Allergy Severe Rash Uncoded 02/16/24 13:30 Patient History Medical History 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 Slow transit constipation Allergic rhinitis Osteoarthritis of right hip Gout (~2011) Mumps (~1947) Measles Chicken pox (~1946) Vertigo (~2013) Diverticular disease Colon polyps (~2015) Skin cancer (~2008) Eczematous dermatitis Stage 3a chronic kidney disease (CKD) GERD without esophagitis Mixed hyperlipidemia (~2013) Essential hypertension Type 2 diabetes mellitus with cardiac complication (~2016) Systolic CHF, chronic (~2013) Coronary artery disease (~2013) Chronic atrial fibrillation Arrhythmia Surgical History Anesthesia History of varicose vein ligation (~1997) S/P coronary artery stent placement (~2020) Cardiac defibrillator in place (~2015) S/P mitral valve clip implantation (~2020) Pacemaker (~2013) Family History Father History of heart disease Mother Multiple sclerosis Grandfather Cancer Social History details: ([facility]), daughter in [place], retired household members: spouse Smoking Status: Never smoker alcohol intake: former Smoking Status: Never smoker alcohol intake frequency: 0-2 drinks per day Exam Narrative Exam Narrative: GENERAL: Well-developed patient, in mild distress. HEAD: Atraumatic. Normocephalic. EYES: Pupils equal round and reactive. Extraocular motions intact. No scleral icterus. No injection or drainage. ENT: Nose without bleeding, purulent drainage. Throat without erythema, tonsillar hypertrophy or exudate. Airway patent. NECK: Trachea midline. Non tender CARDIOVASCULAR: Regular rate and rhythm without murmurs, gallops, or rubs. RESPIRATORY: Clear to auscultation. Breath sounds equal bilaterally. No wheezes, rales, or rhonchi. GASTROINTESTINAL: Abdomen soft, non-tender, nondistended. EXTREMITIES: No edema or joint tenderness. BACK: Nontender without deformity or crepitance. No flank tenderness. NEURO: AOx3. Motor functions grossly nonfocal SKIN: No rash or erythema of visible areas Initial Vital Signs Initial Vital Signs: Vital Signs Pulse Rate 79 05/20/24 18:57 Blood Pressure 95/63 05/20/24 18:57 Pulse Oximetry 88 L 05/20/24 18:57 Course Orders Ordered: Discontinued Medications Acetaminophen (Acetaminophen 325 Mg Tablet) 650 mg PO Q6H PRN PRN Reason: Fever/Mild Pain (1-3) Aspirin (Aspirin Ec 81 Mg Tablet) 81 mg PO DAILY REPLACED BY [facility] Last Admin: 05/21/24 09:30 Dose: 81 mg Documented By: MS Bisacodyl (Bisacodyl 10 Mg Supp) 10 mg MS DIRECTED REPLACED BY [facility] Cephalexin HCl (Cephalexin 250 Mg Capsule) 500 mg PO QID REPLACED BY [facility] Last Admin: 05/21/24 09:30 Dose: 500 mg Documented By: MS Dextrose (Dextrose 50 % In Water 25 Gm/50 Ml Syringe) 25 gm IV NOW ONE Stop: 05/20/24 21:26 Last Admin: 05/20/24 22:03 Dose: 25 gm Documented By: SB Digoxin (Digoxin 0.125 Mg Tablet) 0.125 mg PO Q48H REPLACED BY [facility] Guaifenesin (Guaifenesin Er 600 Mg Tab) 1,200 mg PO Q12H PRN PRN Reason: Cough Heparin Sodium (Porcine) (Heparin 5,000 Unit/Ml Vial) 5,000 unit SUBCUT BID REPLACED BY [facility] Last Admin: 05/21/24 09:30 Dose: 5,000 unit Documented By: Admin: 05/21/24 04:54 Dose: 5,000 unit Documented By: TEA Hydrocortisone (Hydrocortisone 2.5% Cream 30 Gm) 1 applic TOP BID PRN PRN Reason: itch Sodium Chloride (Normal Saline 0.9%) 1,000 mls @ 250 mls/hr IV BOLUS ONE Stop: 05/21/24 01:24 Last Infusion: 05/21/24 02:57 Dose: Infused Documented By: Admin: 05/20/24 22:05 Dose: 250 mls/hr Documented By: HETAL Calcium Gluconate 9.3 meq/ (Sodium Chloride) 70 mls @ 140 mls/hr IV NOW ONE Stop: 05/20/24 21:54 Last Infusion: 05/20/24 22:30 Dose: Infused Documented By: Admin: 05/20/24 21:58 Dose: 140 mls/hr Documented By: HETAL Dextrose/Sodium Chloride (Dextrose 5%-0.9% Ns) 1,000 mls @ 50 mls/hr IV CONT REPLACED BY [facility] Last Admin: 05/21/24 04:55 Dose: Not Given Documented By: TEA Dextrose/Sodium Chloride (Dextrose 5%-0.9% Ns) 1,000 mls @ 75 mls/hr IV CONT REPLACED BY [facility] Last Admin: 05/21/24 03:39 Dose: 75 mls/hr Documented By: TEA Insulin Human Regular (Insulin Regular 100 Unit/Ml 3 Ml Vial) 5 unit IV NOW ONE Stop: 05/20/24 21:26 Last Admin: 05/20/24 22:01 Dose: 5 unit Documented By: HETAL Co-signed By: JERRI Multivitamins (Multivitamin 1 Tablet) 1 tab PO DAILY REPLACED BY [facility] Last Admin: 05/21/24 09:30 Dose: 1 tab Documented By: Mupirocin (Mupirocin 22 Gm Oint) 2 applic TOP TID REPLACED BY [facility] Last Admin: 05/21/24 10:15 Dose: Not Given Documented By: Naloxone HCl (Naloxone 0.4 Mg/Ml Vial) 0.2 mg IV Q2MIN PRN PRN Reason: Opiate Reversal Nf - Bisoprolol (Fumarate 5 Mg Tablet) 5 mg PO TID REPLACED BY [facility] Last Admin: 05/21/24 09:31 Dose: Not Given Documented By: Ondansetron HCl (Ondansetron 4 Mg/2 Ml Inj) 4 mg IV Q8HR PRN PRN Reason: Nausea And Vomiting Pantoprazole Sodium (Pantoprazole Dr 20 Mg Tablet) 20 mg PO 0600 REPLACED BY [facility] Last Admin: 05/21/24 09:30 Dose: Not Given Documented By: Trazodone HCl (Trazodone 50 Mg Tablet) 50 mg PO BEDTIME PRN PRN Reason: sleep Triamcinolone Acetonide (Triamcinolone 0.1% Cream 15 Gm) 1 applic TOP DAILY PRN PRN Reason: Rash on arms Vitamin D (Cholecalciferol (Vitamin D3) 1,000 Unit Tablet) 1,000 unit PO DAILY REPLACED BY [facility] Last Admin: 05/21/24 09:30 Dose: 1,000 unit Documented By: Vital Signs Vital signs: Vital Signs - 8 hr 05/20/24 18:57 05/20/24 19:04 05/20/24 19:04 Temperature 97.2 F L Pulse Rate 79 75 75 Respiratory Rate 20 24 Blood Pressure 95/63 99/59 L 99/59 L Pulse Oximetry 88 L 96 96 Oxygen Delivery Method Room Air Oxygen Flow Rate 2 05/20/24 19:30 05/20/24 20:00 05/20/24 20:30 Temperature Pulse Rate 74 75 75 Respiratory Rate 12 21 22 Blood Pressure 97/63 95/64 101/66 Pulse Oximetry 94 91 97 Oxygen Delivery Method Oxygen Flow Rate 2 2 2 05/20/24 21:00 05/20/24 22:00 05/20/24 22:30 Temperature Pulse Rate 75 74 75 Respiratory Rate 18 24 21 Blood Pressure 98/63 96/67 103/65 Pulse Oximetry 92 100 92 Oxygen Delivery Method Oxygen Flow Rate 2.5 2.5 2.5 05/20/24 23:00 05/20/24 23:30 05/21/24 00:00 Temperature Pulse Rate 75 75 75 Respiratory Rate 24 22 Blood Pressure 107/63 94/62 Pulse Oximetry 99 99 100 Oxygen Delivery Method Room Air Oxygen Flow Rate 05/21/24 00:01 05/21/24 00:01 05/21/24 00:30 Temperature Pulse Rate 75 Respiratory Rate 14 Blood Pressure 112/58 L 91/63 Pulse Oximetry 100 Oxygen Delivery Method Oxygen Flow Rate 05/21/24 00:30 05/21/24 01:00 05/21/24 01:00 Temperature Pulse Rate 74 75 Respiratory Rate 22 Blood Pressure 95/61 Pulse Oximetry 99 95 Oxygen Delivery Method Oxygen Flow Rate 05/21/24 01:30 05/21/24 01:30 05/21/24 02:00 Temperature Pulse Rate 75 Respiratory Rate 13 Blood Pressure 97/63 96/66 Pulse Oximetry 98 Oxygen Delivery Method Oxygen Flow Rate 05/21/24 02:00 Temperature Pulse Rate 75 Respiratory Rate 32 H Blood Pressure Pulse Oximetry 94 Oxygen Delivery Method Oxygen Flow Rate MDM - Recheck/Abnormal Lab/Rx Lab Data Lab results narrative: White blood cell count 6400, hemoglobin 13.3, platelets adequate. Sodium 115, potassium 6.0, chloride 83, serum CO2 19, BUN 81, creatinine 2.16, glucose 123. Liver functions show mild transaminitis. UA negative. 05/21/24 04:32 05/21/24 12:30 Labs: Lab Results 05/20/24 05/20/24 05/21/24 Range/Units 19:57 21:50 00:53 WBC 6.4 (4.5-11.0) X10^3/uL RBC 4.76 (4.5-5.9) X10^6/uL Hgb 13.3 L (13.5-17.5) g/dL Hct 40.4 L (41-53) % MCV 84.9 (80-100) fL MCH 28.0 (26-34) PG MCHC 33.0 (30-36) % RDW 18.8 H (11.6-14.8) % Plt Count 143 L (150-400) X10^3/uL Neut % (Auto) 79.0 H (50-75) % Lymph % (Auto) 9.6 L (25-40) % [place] % (Auto) 9.5 (3-14) % Eos % (Auto) 1.0 L (2-4) % Baso % (Auto) 0.9 (0-2) % Neut # (Auto) 5100 (4025-9186) /uL Lymph # (Auto) 600 L (7176-5007) /uL [place] # (Auto) 600 (0-900) /uL Eos # (Auto) 100 (0-450) /uL Baso # (Auto) 100 (0-100) /uL Plt Morphology Comment RBC Morphology See below Anisocytosis 2+ H Ovalocytes 1+ H [place] Cells 2+ H Acanthocytes (Spur) 2+ Rouleaux 1+ H PT 18.9 H (9.4-12.5) SECONDS INR 1.7 H (0.9-1.3) Sodium 115 L* 120 L (137-145) mmol/L Potassium 6.0 H 4.5 D (3.4-5.1) mmol/L Chloride 83 L 90 L (98-107) mmol/L Carbon Dioxide 19 L 18 L (22-32) mmol/L BUN 81 H 74 H (9-20) mg/dL Creatinine 2.16 H 1.84 H (0.66-1.25) mg/dL Estimated GFR 29 L 36 L (>60) mL/min BUN/Creatinine Ratio 37.5 H 40.2 H (6-22) Glucose 123 H 50 L (80-110) mg/dL Calcium 9.3 8.9 (8.4-10.2) mg/dL Total Bilirubin 2.4 H (0.2-1.3) mg/dL AST 60 H (17-59) IU/L ALT 59 H (<50) IU/L Alkaline Phosphatase 94 (38-126) U/L Total Creatine Kinase 109 (55-170) U/L Troponin I < 0.012 (0.01-0.034) ng/mL Total Protein 6.8 (6.3-8.2) g/dL Albumin 3.9 (3.5-5.0) g/dL Globulin 2.9 (1.7-4.1) g/dL Albumin/Globulin Ratio 1.3 (1.0-2.8) Lipase 416 H (23-300) U/L Urine Color Yellow Urine Appearance Clear Urine pH 5.5 (4.5-8.0) Ur Specific [place] 1.010 (1.000-1.035) Urine Protein Negative (Negative) Urine Glucose (UA) Negative (Negative) g/dL Urine Ketones Negative (NEGATIVE) Urine Occult Blood Negative (Negative) Urine Nitrate Negative (Negative) Urine Bilirubin Negative (NEGATIVE) Urine Urobilinogen 0.2 (0.2) E.U./dL Ur Leukocyte Esterase Negative (NEGATIVE) Urine RBC 0-1/hpf (0-5/HPF) Urine WBC 0-1/hpf (0-5/HPF) Ur Squamous Epith Cells 0-1 /hpf (0-5/HPF) Urine Bacteria Occasional (0-1) (None) Urine Mucus 1+ H (Negative) Ur Culture Indicated? Cult not indicated Vol Urine Centrifuged 10ml (spun) MDM Narrative Medical decision making narrative: 83-year-old male recently was on hospice at [facility] where his is sharing same room who has severe dementia, patient does not have dementia, has CHF and diabetes and chronic kidney disease, labs or apparently sent and showed low sodium, here for further treatment. Screening labs: White blood cell count 6400, hemoglobin 13.3, platelets adequate. Sodium 115, potassium 6.0, chloride 83, serum CO2 19, BUN 81, creatinine 2.16, glucose 123. Liver functions show mild transaminitis. UA negative. Mild hyperkalemia noted, low-sodium confirmed 115. Calcium gluconate IV given, oral Lokelma, IV dextrose before IV regular insulin for treatment of the mildly elevated potassium. IV fluid bolus 250 cc normal saline. Interval repeat labs: Sodium 120 improved, potassium 4.5 decreased, serum CO2 18 about the same, chloride 90 increased, BUN 74 some decreased, creatinine 1.8 decreased from prior with 2.16. Glucose 50 that does not seem to be terribly symptomatic right now. We will start D5 NS at 50 cc/hr for now, pending discussion with hospitalist. Patient and daughter would like further treatment as an inpatient for now. Code status: Reiterated his desire to remain DNR/DNI, no shocks, no intubation, no CPR. However they would like treatment of reversible causes. 0245, case discussed with hospitalist Dr. Delong who accepts patient for admission to inpatient Critical Care Time Critical Care Time Critical Care Time: Yes Total Critical Care Time: 35 Attestation: The high probability of a clinically significant, sudden or life threatening deterioration of the [neuro, metabolic, cardiopulmonary, endocrine] system(s) required my full and direct attention, intervention and personal management. The aggregate critical care time was [35] minutes. This time is in addition to time spent performing reported procedures but includes the following: [x] Data Review and interpretation [x] Patient assessment and monitoring of vital signs [x] Documentation [x] Medication orders and management Discharge Plan Departure Patient Disposition: Admitted As Inpatient Clinical Impression: Generalized weakness, Hyponatremia, Hyperkalemia, Hypoglycemia, Chronic kidney disease Admit Date/Time: 05/21/24 02:40 Admit Provider: Fercho Delong
[2024-05-20 21:37] LABS: INR 1.7 (0.9-1.3); Prothrombin Time 18.9 SECONDS (9.4-12.5)
[2024-05-20] MEDS: CALCIUM GLUCONATE 9.3 MEQ in SODIUM CHLORIDE 0.9% 50 ML 140 MEQ IV (21:58)
[2024-05-20 21:59] LABS: Appearance Urine UA CLEAR; Bilirubin Urine UA NEGATIVE (NEGATIVE); Color Urine UA YELLOW; Glucose Urine UA NEGATIVE (Negative); Ketones Urine UA NEGATIVE (NEGATIVE); Leukocyte Esterase Urine UA NEGATIVE (NEGATIVE); Nitrite Urine UA NEGATIVE (Negative); Occult Blood Urine UA NEGATIVE (Negative); Protein Urine UA NEGATIVE (Negative); Urobilinogen Urine UA 0.2 E.U./dL (0.2); pH Urine UA 5.5 (4.5-8.0)
[2024-05-20] MEDS: INSULIN REGULAR 100 UNIT/ML 3 ML VIAL IV (22:01)
[2024-05-20] MEDS: DEXTROSE 50 % IN WATER 25 GM/50 ML SYRINGE IV (22:03)
[2024-05-20 22:05] LABS: Bacteria Urine Occasional (0-1); Culture Indicated Urine Cult Not Indicated; Mucus Urine 1+ (Negative); RBC Urine 0-1/HPF (0-5/HPF); Squamous Epithelial Cell Urine 0-1 /HPF (0-5/HPF); Urine Volume 10mL (spun); WBC Urine 0-1/HPF (0-5/HPF)
[2024-05-20] MEDS: SODIUM ZIRCONIUM CYCLOSILICATE 10 GM POWD.PACK PO (22:05)
[2024-05-20] MEDS: SODIUM CHLORIDE 0.9% 1,000 ML 250 ML IV (22:05)
[2024-05-21] VITALS (11 sets, daily range): BP systolic 86–112; BP diastolic 49–66; PULSE 74–78; RESP 13–32; TEMP 35.9–36.1; O2SAT 94–100; BMI 22.8
[2024-05-21 01:16] LABS: BUN Creatinine Ratio 40.2 (6-22); Blood Urea Nitrogen 74 mg/dL (9-20); Calcium 8.9 mg/dL (8.4-10.2); Carbon Dioxide 18 mmol/L (22-32); Chloride 90 mmol/L (98-107); Estimated Glomerular Filt Rate 36 mL/min (>60); Glucose 50 mg/dL (80-110); HEMOLYSIS < 15 (0-50); Potassium 4.5 mmol/L (3.4-5.1); Sodium 120 mmol/L (137-145)
[2024-05-21] MEDS: DEXTROSE 5%-0.9% NS 1,000 ML 75 ML IV (03:39)
[2024-05-21] MEDS: HEPARIN 5,000 UNIT/ML VIAL 5000 UNIT SUBCUT ×2 (04:54→09:30)
[2024-05-21 05:01] LABS: Add Manual Diff / Slide Review NO; Basophils Absolute Auto 0 /uL (0-100); Basophils Percent Auto 0.8 % (0-2); Eosinophils Absolute Auto 0 /uL (0-450); Eosinophils Percent Auto 0.4 % (2-4); Hematocrit 39.4 % (41-53); Hemoglobin 12.9 g/dL (13.5-17.5); Lymphocytes Absolute Auto 300 /uL (1100-4500); Lymphocytes Percent Auto 5.5 % (25-40); Mean Corpuscular HGB Conc 32.8 % (30-36); Mean Corpuscular Volume 85.3 fL (80-100); Monocytes Absolute Auto 400 /uL (0-900); Monocytes Percent Auto 6.9 % (3-14); Neutrophils Absolute Auto 5500 /uL (1500-7000); Neutrophils Percent Auto 86.4 % (50-75); Platelet Count 134 X10^3/uL (150-400); Red Blood Cell Count 4.62 X10^6/uL (4.5-5.9); Red Cell Distribution Width 18.5 % (11.6-14.8); White Blood Cell Count 6.4 X10^3/uL (4.5-11.0)
--- NOTE | 2024-05-21 05:16 | PC.NURSE ---
0310 admitted to room 221 accompanied byr his daughter Brianne. Oriented to his room, call light & TV & bed controls. History of fall, bed alarm activated. Will continue plan of care & monitor.
[2024-05-21 05:18] LABS: BUN Creatinine Ratio 39.6 (6-22); Blood Urea Nitrogen 74 mg/dL (9-20); Calcium 9.3 mg/dL (8.4-10.2); Carbon Dioxide 18 mmol/L (22-32); Chloride 85 mmol/L (98-107); Estimated Glomerular Filt Rate 35 mL/min (>60); Glucose 94 mg/dL (80-110); HEMOLYSIS < 15 (0-50); Potassium 4.8 mmol/L (3.4-5.1)
[2024-05-21 05:22] LABS: Sodium 118 mmol/L (137-145)
--- NOTE | 2024-05-21 07:02 | P.HP_ITS ---
History of Present Illness History of Present Illness Chief complaint: Hyponatremia, confusion, fall Narrative: 83-year-old male with past medical history of reported severe systolic heart failure with EF 20% by the patient's daughter, CKD stage IV, hypertension, coronary disease, chronic atrial fibrillation, hypertension and thrombophilia was sent here from his memory care center due to concern of low sodium. Per the patient's daughter who was at the bedside, the patient was placed on hospice mid March 2024. At that time due to his comorbidities and his failure to thrive over the last few months prior the decision was to place the patient on hospice. Of note the patient does not have any memory issues though he is at a memory care center because his who has dementia is also there. Today the patient's sodium was checked and was noted to be low at 116. The patient's daughter did call the hospice physician who recommended that the patient come into our ER for further management. Otherwise the patient denies any fever, chills, nausea, vomiting, diarrhea, chest pain or shortness of breath. The patient admits that he has not been eating and drinking much over the last few days. In our emergency room, the patient had an repeat sodium level which is 115. The patient did have a low liter of NS and recheck sodium was 120. However due to the fact that the patient's daughter and himself once hyponatremia to be corrected our ER physician requested admission for correction. 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 Slow transit constipation Allergic rhinitis Osteoarthritis of right hip Gout (~2011) Mumps (~1947) Measles Chicken pox (~1946) Vertigo (~2013) Diverticular disease Colon polyps (~2015) Skin cancer (~2008) Eczematous dermatitis Stage 3a chronic kidney disease (CKD) GERD without esophagitis Mixed hyperlipidemia (~2013) Essential hypertension Type 2 diabetes mellitus with cardiac complication (~2016) Systolic CHF, chronic (~2013) Coronary artery disease (~2013) Chronic atrial fibrillation Arrhythmia Surgical History Anesthesia History of varicose vein ligation (~1997) S/P coronary artery stent placement (~2020) Cardiac defibrillator in place (~2015) S/P mitral valve clip implantation (~2020) Pacemaker (~2013) Family History Father History of heart disease Mother Multiple sclerosis Grandfather Cancer Social History details: (Julieta living at the [facility]), daughter in [place], retired household members: none Smoking Status: Never smoker alcohol intake: former Meds Home Medications and Allergies Home Medications Medication Instructions Recorded Confirmed Type bisoprolol fumarate 5 mg tablet 5 mg PO TID #0 tabs 07/10/21 05/21/24 History cholecalciferol (vitamin D3) 25 25 mcg PO DAILY 07/10/21 05/21/24 History mcg (1,000 unit) capsule digoxin 125 mcg (0.125 mg) tablet 125 mcg PO Q OTHER DAY #0 tabs 07/10/21 05/21/24 History (Lanoxin) Disabled Parking Permit 1 ea Not Applicable DAILY #1 ea 05/02/22 05/21/24 Rx spironolactone 25 mg tablet 25 mg PO QDAY #0 tabs 07/02/22 05/21/24 History (Aldactone) triamcinolone acetonide 0.1 % See Rx Instructions topical DAILY 02/23/23 05/21/24 Rx topical cream PRN Rash on arms #30 grams trazodone 50 mg tablet 25 - 50 mg (0.5 - 1 x 50 mg) PO 08/03/23 05/21/24 Rx BEDTIME PRN sleep #90 tabs multivitamin 1 tab PO DAILY 11/16/23 05/21/24 History lancets #100 ea 02/04/24 05/21/24 Rx blood sugar diagnostic (True #100 ea 02/16/24 05/21/24 Rx Metrix Glucose Test Strip) torsemide 20 mg tablet 60 mg PO .COMPLEX 02/16/24 05/21/24 History omeprazole 20 mg capsule,delayed 20 mg PO DAILY #90 caps 04/18/24 05/21/24 Rx release aspirin 81 mg tablet 81 mg PO DAILY 05/21/24 05/21/24 History bisacodyl 10 mg rectal suppository 10 mg ME DIRECTED 05/21/24 05/21/24 History (OneLAX Bisacodyl) cephalexin 500 mg capsule 500 mg PO 4XD 05/21/24 05/21/24 History guaifenesin 1,200 mg tablet, 1,200 mg PO Q12H PRN Cough 05/21/24 05/21/24 History extended release 12 hr hydrocortisone 2.5 % topical 1 applic topical BID PRN itch 05/21/24 05/21/24 History ointment lactulose 15 ml PO DAILY PRN Constipation 05/21/24 05/21/24 History mupirocin 2 % topical ointment 2 applic topical TID 05/21/24 05/21/24 History Allergies Allergy/AdvReac Type Severity Reaction Status Date / Time empagliflozin Allergy Severe rash Verified 02/16/24 13:30 [From Jardiance] metronidazole Allergy Severe Rash Verified 02/16/24 13:30 morphine Allergy Intermediate Rash Verified 05/21/24 05:24 ciprofloxacin Allergy Mild Rash Verified 02/16/24 13:30 fluconazole [FLUCONAZOLE] Allergy Mild RASH Verified 02/16/24 13:30 itraconazole [From SPORANOX] Allergy Unknown Verified 02/16/24 13:30 clopidogrel [From Plavix] Allergy Rash Verified 02/16/24 13:30 Adhesive Tape Allergy Severe Rash Uncoded 02/16/24 13:30 Review of Systems Review of Systems ROS: Yes All systems reviewed with the patient and are negative except as otherwise documented Exam Vital Signs (past 8 hours): - 05/20/24 23:30 05/21/24 00:00 05/21/24 00:01 Temperature Pulse Rate 75 75 Respiratory Rate 22 Blood Pressure 94/62 112/58 L Pulse Oximetry 99 100 Oxygen Delivery Method Room Air Oxygen Flow Rate Fraction of Inspired Oxygen 05/21/24 00:01 05/21/24 00:30 05/21/24 00:30 Temperature Pulse Rate 75 74 Respiratory Rate 14 Blood Pressure 91/63 Pulse Oximetry 100 99 Oxygen Delivery Method Oxygen Flow Rate Fraction of Inspired Oxygen 05/21/24 01:00 05/21/24 01:00 05/21/24 01:30 Temperature Pulse Rate 75 Respiratory Rate 22 Blood Pressure 95/61 97/63 Pulse Oximetry 95 Oxygen Delivery Method Oxygen Flow Rate Fraction of Inspired Oxygen 05/21/24 01:30 05/21/24 02:00 05/21/24 02:00 Temperature Pulse Rate 75 75 Respiratory Rate 13 32 H Blood Pressure 96/66 Pulse Oximetry 98 94 Oxygen Delivery Method Oxygen Flow Rate Fraction of Inspired Oxygen 05/21/24 03:18 05/21/24 03:26 05/21/24 03:30 Temperature 96.9 F L Pulse Rate 75 Respiratory Rate 16 Blood Pressure 86/61 L Pulse Oximetry 94 96 95 Oxygen Delivery Method Nasal Cannula Nasal Cannula Oxygen Flow Rate 2 2 2 Fraction of Inspired Oxygen 28 Fraction of Inspired Oxygen 28 SaO2/FiO2 Ratio 335 Oxygen Delivery Method Nasal Cannula Oxygen Flow Rate 2 Narrative Exam Narrative: Physical Exam: GENERAL: The patient is not in any acute distressed. Awake and alert. Thin male HEENT: Nonicteric sclerae, PERRLA, EOMI. Oropharynx clear. Moist mucous membranes. Conjunctivae appear well perfused. HEART: Regular rate and rhythm without murmurs. No lower extremities edema. LUNGS: Clear to auscultation bilaterally. No wheezing, crackles or rhonchi ABDOMEN: Soft, positive bowel sounds, nontender. SKIN: No rash, no excessive bruising, petechiae, or purpura. NEUROLOGIC: AxO x 3. Cranial nerves II-XII intact without motor/sensory deficit. Objective Labs 05/21/24 04:32 05/21/24 04:32 Labs: Laboratory Results - last 24 hr 05/20/24 05/20/24 05/21/24 19:57 21:50 00:53 WBC 6.4 RBC 4.76 Hgb 13.3 L Hct 40.4 L MCV 84.9 MCH 28.0 MCHC 33.0 RDW 18.8 H Plt Count 143 L Neut % (Auto) 79.0 H Lymph % (Auto) 9.6 L [place] % (Auto) 9.5 Eos % (Auto) 1.0 L Baso % (Auto) 0.9 Neut # (Auto) 5100 Lymph # (Auto) 600 L [place] # (Auto) 600 Eos # (Auto) 100 Baso # (Auto) 100 Plt Morphology Comment RBC Morphology See below Anisocytosis 2+ H Ovalocytes 1+ H Claudia Cells 2+ H Acanthocytes (Spur) 2+ Rouleaux 1+ H PT 18.9 H INR 1.7 H Sodium 115 L* 120 L Potassium 6.0 H 4.5 D Chloride 83 L 90 L Carbon Dioxide 19 L 18 L BUN 81 H 74 H Creatinine 2.16 H 1.84 H Estimated GFR 29 L 36 L BUN/Creatinine Ratio 37.5 H 40.2 H Glucose 123 H 50 L Calcium 9.3 8.9 Total Bilirubin 2.4 H AST 60 H ALT 59 H Alkaline Phosphatase 94 Total Creatine Kinase 109 Troponin I < 0.012 Total Protein 6.8 Albumin 3.9 Globulin 2.9 Albumin/Globulin Ratio 1.3 Lipase 416 H Urine Color Yellow Urine Appearance Clear Urine pH 5.5 Ur Specific Delta 1.010 Urine Protein Negative Urine Glucose (UA) Negative Urine Ketones Negative Urine Occult Blood Negative Urine Nitrate Negative Urine Bilirubin Negative Urine Urobilinogen 0.2 Ur Leukocyte Esterase Negative Urine RBC 0-1/hpf Urine WBC 0-1/hpf Ur Squamous Epith Cells 0-1 /hpf Urine Bacteria Occasional (0-1) Urine Mucus 1+ H Ur Culture Indicated? Cult not indicated Vol Urine Centrifuged 10ml (spun) 05/21/24 04:32 WBC 6.4 RBC 4.62 Hgb 12.9 L Hct 39.4 L MCV 85.3 MCH 28.0 MCHC 32.8 RDW 18.5 H Plt Count 134 L Neut % (Auto) 86.4 H Lymph % (Auto) 5.5 L [place] % (Auto) 6.9 Eos % (Auto) 0.4 L Baso % (Auto) 0.8 Neut # (Auto) 5500 Lymph # (Auto) 300 L [place] # (Auto) 400 Eos # (Auto) 0 Baso # (Auto) 0 Plt Morphology Comment RBC Morphology Anisocytosis Ovalocytes Claudia Cells Acanthocytes (Spur) Rouleaux PT INR Sodium 118 L* Potassium 4.8 Chloride 85 L Carbon Dioxide 18 L BUN 74 H Creatinine 1.87 H Estimated GFR 35 L BUN/Creatinine Ratio 39.6 H Glucose 94 Calcium 9.3 Total Bilirubin AST ALT Alkaline Phosphatase Total Creatine Kinase Troponin I Total Protein Albumin Globulin Albumin/Globulin Ratio Lipase Urine Color Urine Appearance Urine pH Ur Specific Delta Urine Protein Urine Glucose (UA) Urine Ketones Urine Occult Blood Urine Nitrate Urine Bilirubin Urine Urobilinogen Ur Leukocyte Esterase Urine RBC Urine WBC Ur Squamous Epith Cells Urine Bacteria Urine Mucus Ur Culture Indicated? Vol Urine Centrifuged Assessment & Plan Assessment & Plan narrative: Hyponatremia. Admit the patient to medical inpatient. Of note patient's sodium as outpatient was 116 repeated 115. Patient currently is 120 from NS given in the ER. Will continue normal saline at 75 and monitor sodium closely. Will try not to overcorrect. Note the patient mentation is intact and is alert and oriented x 4. This hyponatremia most likely due to poor oral intake and dehydration. Severe chronic systolic heart failure with reported EF of 20% by the patient's daughter. With the hyponatremia and severe heart failure the patient's prognosis is very poor. However we will defer goals of care discussion to the patient's and his hospice provider. The patient is daughter states that she might still consider hospice but at this time would want to hold off on comfort only. Atrial fibrillation. Resume home medication including digoxin. CKD stage III 4. Of note patient's creatinine slightly above baseline. Likely from dehydration. Monitor and continue IV fluid. Hypoglycemia. Patient glucose did deep dipped down slightly while in the ER. Will continue D5 NS and monitor glucose. HLD. Resume home Statin. NIDDM. hold home metformin due to hypoglycemia and monitor glucose. DVT prophylaxis SCDs and Coumadin CODE STATUS DNR/DNI. Disposition likely back to care center in 2 days. Time-Based Coding :: [TOTAL MINUTES] spent with patient and on the chart (including review of chart, obtaining history, exam, reviewing outside data, placing orders, documenting exam and treatment plan, and counseling patient) on [DATE]. Quality VTE Deep Vein Thrombosis/Pulmonary Embolism Present on Admission: No
[2024-05-21 09:09] LABS: BUN Creatinine Ratio 37.4 (6-22); Blood Urea Nitrogen 71 mg/dL (9-20); Calcium 9.2 mg/dL (8.4-10.2); Carbon Dioxide 19 mmol/L (22-32); Chloride 86 mmol/L (98-107); Estimated Glomerular Filt Rate 34 mL/min (>60); Glucose 140 mg/dL (80-110); HEMOLYSIS < 15 (0-50); Potassium 4.7 mmol/L (3.4-5.1)
[2024-05-21 09:13] LABS: Sodium 118 mmol/L (137-145)
[2024-05-21] MEDS: CHOLECALCIFEROL (VITAMIN D3) 1,000 UNIT TABLET 1000 UNIT PO (09:30)
[2024-05-21] MEDS: cephALEXin 250 MG CAPSULE 500 MG PO (09:30)
[2024-05-21] MEDS: MULTIVITAMIN 1 TABLET 1 TAB PO (09:30)
[2024-05-21] MEDS: ASPIRIN EC 81 MG TABLET PO (09:30)
--- NOTE | 2024-05-21 10:55 | CM.DANOTE ---
Addendum entered by Traci Cornejo, VP OF CUSTOMER EXPERIENCE STRATEGY 05/21/24 13:19: ADD: Per , met bedside with pt and adult Dtr Brianne (who is here visiting from [place] for one more week before she has to return) and preference is back to [facility] today with Hospice to continue. SW spoke to Brissa at [facility] and updated on plan to d/c back today and no RN to admit for today but likely tomorrow and they will continue pt on their services and will update their Provider and Director RN on Dtr's concerns that were expressed to Hospitalist. SW spoke to Carleen at [facility] and updated on above and they remain in agreement with pt return today and both Carleen and Hospitalist recommending BLS transport due to pt's orthostatics/sats dropping to low 80s and MD anticipates pt likely could in the next few days due to EF. SW faxed signed med list and MD orders and H&P to [facility] and [facility] to review and no d/c summary available yet. BLS form completed and [facility] can transport pt at 1330 back to [facility] today and SW met bedside with pt and updated and RN and anaesthetic technician. BF Original Note: Patient is an 83 yo male who was admitted on 05/21/24 for Hyponatremia/Encephalopathy. Pt has [facility] for insurance and his PCP is Dr. Danial Estevez. EMR was reviewed. Per , pt with hx of CHF with EF 20% and started on [facility] in Mar 2024 and Hospice was revoked by pt and family and pt admitted to treat his Hyponatremia. SW met bedside with pt and RN and explained role and pt confirms that he is currently living at [facility] as his has dementia and has been living at [facility] and pt began having increased care needs himself and was too difficult to keep up their house in [place] and also visit his at [facility] and therefore decision made for pt to move in with his at the facility and to start on [facility] since Mar 2024 about a month ago. Pt confirms that his POA is his Dtr Brianne but that she lives in [place] and her green card was revoked and therefore she is not staying here locally anymore. Pt states his preference is to d/c back to [facility] with his and currently is not interested in SNF rehab and is open to Resumption of Hospice services although he states he's not sure if he needs Hospice at this time although he knows he has heart failure with low EF and has not been up to eating or drinking much. SW left msg for [facility] and Carleen at [facility] stating currently treating pt's sodium and preference of return to [facility] at d/c and faxed H&P to both to review. PT orders cancelled today as pt's current goal is not to strengthen and go to SNF. Plan: SW to follow closely to confirm plan of return to [facility] with continued [facility] services at d/ and any further identified discharge planning needs. SARA Segal Discharge Planning/Care Management CM Discharge Assessment Start: 05/21/24 10:52 Freq: Status: Active Protocol: Document 05/21/24 10:52 BF (Rec: 05/21/24 10:55 BF [id number]) Discharge Planning Assessment Assigned Community Development Technician SARA Aviles DPOA/Assigned Designee Name Dtr Brianne, lives in [place] Advance Directives? Yes Advance Directives on File Yes History Provided By Patient,Family Member,Medical Record Has Patient been admitted in last 30 No days? Prior Living Arrangements Assisted Living Comment Lives at [facility] with his spouse who has dementia Household Members spouse Type of transporation used prior to Relies on Others admit Facility Name Admitted From: [facility] Care Willing to Return to Facility? Yes Independent with ADL's Yes: somewhat, at [facility] due to spouse Is patient alert and oriented? Yes Needs Assistance With Meal Prep,Managing Medications ,Home Chores / Shopping Caregiver for Another Yes: spouse has dementia and both live at [facility] DME Already Rented / Owned FWW / Walker Barriers to Discharge No Discharge Plan Hospice Transportation Arrangement Likely [facility] facility van Referrals Initiated Other Additional Comment Sent updated clinicals to [facility] and [facility] to review for likely return at d/ c Whiteboard Updated in Patient Room with Yes name and ext. # of Community Development Technician Review Status In Process Please Provide Date Initial DC 05/21/24 Assessment Was Performed Next Review Type Continued Stay Review
[2024-05-21 11:07] LABS: Sodium 118 mmol/L (137-145)
--- NOTE | 2024-05-21 13:00 | PT-IP ANOTE ---
PT eval order received. EMR reviewed. pt with sodium level of 118. per hospitalist during rounds: d/c PT eval order and pt not medically stable for PT at this time.
[2024-05-21 13:18] LABS: Sodium 117 mmol/L (137-145)
--- NOTE | 2024-05-21 14:04 | P.DS_ITS ---
History of Present Illness History of Present Illness Chief complaint: Hyponatremia, confusion, fall Narrative: Per H&P: 83-year-old male with past medical history of reported severe systolic heart failure with EF 20% by the patient's daughter, CKD stage IV, hypertension, coronary disease, chronic atrial fibrillation, hypertension and thrombophilia was sent here from his [facility] due to concern of low sodium. Per the patient's daughter who was at the bedside, the patient was placed on hospice mid March 2024. At that time due to his comorbidities and his failure to thrive over the last few months prior the decision was to place the patient on hospice. Of note the patient does not have any memory issues though he is at a memory care center because his who has dementia is also there. Today the patient's sodium was checked and was noted to be low at 116. The patient's daughter did call the hospice physician who recommended that the patient come into our ER for further management. Otherwise the patient denies any fever, chills, nausea, vomiting, diarrhea, chest pain or shortness of breath. The patient admits that he has not been eating and drinking much over the last few days. In our emergency room, the patient had an repeat sodium level which is 115. The patient did have a low liter of NS and recheck sodium was 120. However due to the fact that the patient's daughter and himself once hyponatremia to be corrected our ER physician requested admission for correction. Discharge Providers Provider Date of admission: 05/21/24 02:40 Discharge Date: 05/21/24 Primary care physician: Danial Estevez MD Consults: 05/21/24 02:42 Consult to Occupational Therapy Evaluate & Treat Comment: Physician Instructions: Evaluate and treat Consult to Physical Therapy Evaluate & Treat Comment: Physician Instructions: Evaluate and Treat Discharge provider: Toya Morel MD Summary Hospital Course Discharge Diagnosis: 1. Hyponatremia 2. Severe Systolic CHF 3. CKD4 4. Acute hypoxic respiratory failure 5. A fib 6. Hypoglycemia 7. DM2 8. HLD 9. Urinary retention, status post Coelho catheter placement 10. Hypotension, secondary to congestive heart failure 11. Pruritus, likely secondary to chronic kidney disease, present on admission Hospital Course: Patient is an 83-year-old man with severe chronic systolic congestive heart failure with an ejection fraction of 20%, CKD stage 4 who had been on hospice services with [facility]. He was residing at home with his daughter assisting in his care until approximately 1 week prior to admission. At that time he moved into [facility] to be closer to his , who has dementia. Since moving in to [facility], patient suffered a significant decline. He was eating and drinking less. He was falling asleep even during conversations. His daughter noted increased leg edema. For unclear reasons, labs were obtained in his sodium was 116. He was sent to the hospital after his daughter revoked hospice services. He was admitted for management of hyponatremia. Since admission, he has had progressive lower extremity edema, progressive hypoxic respiratory failure, and no significant improvement in his hyponatremia. During his exam this morning, simply sitting him up and forward for his lung examination resulted in his oxygen saturations dropping down to 72% on 2 L of oxygen, and significant perioral cyanosis. He was additionally noted to be dyspneic at rest. He was also noted to have at least 3+ bilateral lower extremity edema. Despite interventions done in the emergency department and at admission, his sodium remained 118. He was eating and drinking very little. After further conversation with the patient and his daughter, they elected to discharge home to [facility] with a plan to resume hospice services with [facility]. He was found have urinary retention and a Coelho catheter was placed prior to discharge for urinary retention. Status at Discharge Cognitive/behavioral status at discharge: oriented Functional status at discharge: bed bound Overall status at discharge: patient is not back to baseline Time Spent with Patient Time spent: Greater than 30 minutes Exam Vital Signs (past 8 hours): - 05/21/24 08:00 05/21/24 11:00 Temperature 96.6 F L Pulse Rate 78 Respiratory Rate 21 Blood Pressure 90/49 L Pulse Oximetry 98 95 Oxygen Delivery Method Room Air Oxygen Flow Rate 0 Fraction of Inspired Oxygen 28 SaO2/FiO2 Ratio 335 Oxygen Delivery Method Room Air Oxygen Flow Rate 0 Narrative Exam Narrative: GEN: Ill-appearing elderly male, drowsy and falling asleep frequently, but answering questions appropriately, dyspneic at rest HEENT:NC, Face symmetric CHEST: Respiratory excursions symmetric, bibasilar crackles noted CV: RRR, no M/R/G ABD: Soft, NT, suprapubic distention is noted, BT present in all 4 quadrants, no organomegaly or masses EXTR: warm, well perfused, no C/C, 3+ right greater than left lower extremity edema SKIN: warm and dry, no rash NEURO: nonfocal Objective Labs 05/21/24 04:32 05/21/24 12:30 Labs: Laboratory Results - last 24 hr 05/20/24 05/20/24 05/21/24 19:57 21:50 00:53 WBC 6.4 RBC 4.76 Hgb 13.3 L Hct 40.4 L MCV 84.9 MCH 28.0 MCHC 33.0 RDW 18.8 H Plt Count 143 L Neut % (Auto) 79.0 H Lymph % (Auto) 9.6 L Hyde % (Auto) 9.5 Eos % (Auto) 1.0 L Baso % (Auto) 0.9 Neut # (Auto) 5100 Lymph # (Auto) 600 L Hyde # (Auto) 600 Eos # (Auto) 100 Baso # (Auto) 100 Plt Morphology Comment RBC Morphology See below Anisocytosis 2+ H Ovalocytes 1+ H Greenfield Cells 2+ H Acanthocytes (Spur) 2+ Rouleaux 1+ H PT 18.9 H INR 1.7 H Sodium 115 L* 120 L Potassium 6.0 H 4.5 D Chloride 83 L 90 L Carbon Dioxide 19 L 18 L BUN 81 H 74 H Creatinine 2.16 H 1.84 H Estimated GFR 29 L 36 L BUN/Creatinine Ratio 37.5 H 40.2 H Glucose 123 H 50 L Calcium 9.3 8.9 Total Bilirubin 2.4 H AST 60 H ALT 59 H Alkaline Phosphatase 94 Total Creatine Kinase 109 Troponin I < 0.012 Total Protein 6.8 Albumin 3.9 Globulin 2.9 Albumin/Globulin Ratio 1.3 Lipase 416 H Urine Color Yellow Urine Appearance Clear Urine pH 5.5 Ur Specific Monroe 1.010 Urine Protein Negative Urine Glucose (UA) Negative Urine Ketones Negative Urine Occult Blood Negative Urine Nitrate Negative Urine Bilirubin Negative Urine Urobilinogen 0.2 Ur Leukocyte Esterase Negative Urine RBC 0-1/hpf Urine WBC 0-1/hpf Ur Squamous Epith Cells 0-1 /hpf Urine Bacteria Occasional (0-1) Urine Mucus 1+ H Ur Culture Indicated? Cult not indicated Vol Urine Centrifuged 10ml (spun) 05/21/24 05/21/24 05/21/24 04:32 08:53 10:25 WBC 6.4 RBC 4.62 Hgb 12.9 L Hct 39.4 L MCV 85.3 MCH 28.0 MCHC 32.8 RDW 18.5 H Plt Count 134 L Neut % (Auto) 86.4 H Lymph % (Auto) 5.5 L Hyde % (Auto) 6.9 Eos % (Auto) 0.4 L Baso % (Auto) 0.8 Neut # (Auto) 5500 Lymph # (Auto) 300 L Hyde # (Auto) 400 Eos # (Auto) 0 Baso # (Auto) 0 Plt Morphology Comment RBC Morphology Anisocytosis Ovalocytes Claudia Cells Acanthocytes (Spur) Rouleaux PT INR Sodium 118 L* 118 L* 118 L* Potassium 4.8 4.7 Chloride 85 L 86 L Carbon Dioxide 18 L 19 L BUN 74 H 71 H Creatinine 1.87 H 1.90 H Estimated GFR 35 L 34 L BUN/Creatinine Ratio 39.6 H 37.4 H Glucose 94 140 H Calcium 9.3 9.2 Total Bilirubin AST ALT Alkaline Phosphatase Total Creatine Kinase Troponin I Total Protein Albumin Globulin Albumin/Globulin Ratio Lipase Urine Color Urine Appearance Urine pH Ur Specific Monroe Urine Protein Urine Glucose (UA) Urine Ketones Urine Occult Blood Urine Nitrate Urine Bilirubin Urine Urobilinogen Ur Leukocyte Esterase Urine RBC Urine WBC Ur Squamous Epith Cells Urine Bacteria Urine Mucus Ur Culture Indicated? Vol Urine Centrifuged 05/21/24 12:30 WBC RBC Hgb Hct MCV MCH MCHC RDW Plt Count Neut % (Auto) Lymph % (Auto) Hyde % (Auto) Eos % (Auto) Baso % (Auto) Neut # (Auto) Lymph # (Auto) Hyde # (Auto) Eos # (Auto) Baso # (Auto) Plt Morphology Comment RBC Morphology Anisocytosis Ovalocytes Greenfield Cells Acanthocytes (Spur) Rouleaux PT INR Sodium 117 L* Potassium Chloride Carbon Dioxide BUN Creatinine Estimated GFR BUN/Creatinine Ratio Glucose Calcium Total Bilirubin AST ALT Alkaline Phosphatase Total Creatine Kinase Troponin I Total Protein Albumin Globulin Albumin/Globulin Ratio Lipase Urine Color Urine Appearance Urine pH Ur Specific Monroe Urine Protein Urine Glucose (UA) Urine Ketones Urine Occult Blood Urine Nitrate Urine Bilirubin Urine Urobilinogen Ur Leukocyte Esterase Urine RBC Urine WBC Ur Squamous Epith Cells Urine Bacteria Urine Mucus Ur Culture Indicated? 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 Slow transit constipation Allergic rhinitis Osteoarthritis of right hip Gout (~2011) Mumps (~1947) Measles Chicken pox (~1946) Vertigo (~2013) Diverticular disease Colon polyps (~2015) Skin cancer (~2008) Eczematous dermatitis Stage 3a chronic kidney disease (CKD) GERD without esophagitis Mixed hyperlipidemia (~2013) Essential hypertension Type 2 diabetes mellitus with cardiac complication (~2016) Systolic CHF, chronic (~2013) Coronary artery disease (~2013) Chronic atrial fibrillation Arrhythmia Surgical History Anesthesia History of varicose vein ligation (~1997) S/P coronary artery stent placement (~2020) Cardiac defibrillator in place (~2015) S/P mitral valve clip implantation (~2020) Pacemaker (~2013) Family History Father History of heart disease Mother Multiple sclerosis Grandfather Cancer Social History details: (Julieta living at the [facility]), daughter in [place], retired household members: spouse Smoking Status: Never smoker alcohol intake: former Discharge Plan Discharge Plan Patient Disposition: Hospice - Home Transfer to: [facility] Memory Care Provider Discharge Comment: 1) You were admitted with a low sodium level, likely due to your worsening oral intake, diarrhea from lactulose use, and diuretics that you take for your congestive heart failure. 2) unfortunately, you did not tolerate the IV fluids and had increased leg swelling and fluid in your lungs which made your oxygen levels drop. 3) Based on that, you and your daughter decided to return home to [facility] to re-enroll with hospice care and to seek comfort directed care. 4) Consider melatonin for sleep since trazodone didn't work. Orders for [facility]: 1) Hold spironolactone for SBP<105 2) Hold torsemide for SBP<100; for SBP between 100 and 110, split the dose in 1/2 and give 2hours apart Orders for [facility]: 1) Please limit use of medications until patient is in his final days per daughter's request 2) Please communicate with daughter prior to initiating new interventions and after each nursing visit (? perhaps via Whatsapp to make free calls internationally). 3) Consider daily miralax for constipation Discharge orders & Medications Prescriptions: Continued bisoprolol fumarate 5 mg tablet 5 mg PO TID Qty: 0 Patient Comments: Not given if SBP 100 Or below 100 digoxin [Lanoxin] 125 mcg (0.125 mg) tablet 125 mcg PO Q OTHER DAY Qty: 0 Disabled Parking Permit 1 ea Not Applicable DAILY Qty: 1 0RF Rx Instructions: As directed spironolactone [Aldactone] 25 mg tablet 25 mg PO QDAY Qty: 0 triamcinolone acetonide 0.1 % cream See Rx Instructions topical DAILY PRN (Reason: Rash on arms) Qty: 30 0RF Rx Instructions: 1 gram daily topically daily PRN; (DME) lancets Misc See Rx Instructions .Route Qty: 100 3RF Rx Instructions: As directed to test blood glucose daily omeprazole 20 mg capsule,delayed release(DR/EC) 20 mg PO DAILY Qty: 90 3RF (DME) True Metrix Glucose Test Strip Strip See Rx Instructions .Route Qty: 100 5RF Rx Instructions: As directed to test blood glucose daily torsemide 20 mg tablet 60 mg PO .COMPLEX Rx Instructions: 3 tabs. (60 mg.) 5 days per week Thu through Thursday. 20mg. 2 tabs.( 40 mg. )THU & Thursday. cephalexin 500 mg capsule 500 mg PO 4XD hydrocortisone 2.5 % ointment 1 applic topical BID PRN (Reason: itch) bisacodyl [OneLAX Bisacodyl] 10 mg suppository 10 mg MT DIRECTED Patient Comments: [NO ORIGINAL SIG] aspirin 81 mg Tablet 81 mg PO DAILY mupirocin 2 % Ointment 2 applic topical TID lactulose 15 ml PO DAILY PRN (Reason: Constipation) Discontinued trazodone 50 mg tablet 25 - 50 mg PO BEDTIME PRN (Reason: sleep) Qty: 90 3RF Rx Instructions: 1/2 tablet to 1 tablet as needed for sleep cholecalciferol (vitamin D3) 25 mcg (1,000 unit) capsule 25 mcg PO DAILY multivitamin Tablet 1 tab PO DAILY guaifenesin 1,200 mg tablet extended release 12hr 1,200 mg PO Q12H PRN (Reason: Cough) Follow up/Referrals: Danial Estevez MD [Primary Care Provider] - Discharge Health Status Multidrug resistant organism: No MDRO Diet/Activity/Treatments Diet: Diet as Tolerated, Clear Liquid and Low-sodium Activity: As tolerated Catheter: 2-way Coelho Catheter comment: Placed 05/21/24 for urinary retention Oxygen: 2lpm Visit Report/Discharge Packet Stand Alone Forms: Patient Portal/API, Stroke Signs & Symptoms Discharge Data Primary Care Provider: Danial Estevez VTE Deep Vein Thrombosis/Pulmonary Embolism Present on Admission: No
--- NOTE | 2024-05-22 10:26 | CM.DPC ---
Call from Bozena at [facility] requesting discharge summary for pt who discharged yesterday back to [facility] and d/c summary was not yet completed by time of discharge. CHRISTIANO faxed requested d/c summary to [facility] to review for pt continued on Hospice services. SARA Segal
[2024-05-23 11:13] LABS: Osmolality, Serum 272 mOsmol/kg (280-301)
== END 2024-05-21 13:43 | disposition hospice, home (50) | DRG 640 ==
LOC: ED 19:48 → AC 05-21 02:41
PROVIDERS: Family Medicine; Admitting Provider Internal Medicine; Emergency Provider Emergency Medicine; PCP Internal Medicine; Referring Provider Emergency Medicine; Visit Provider Internal Medicine
DX: E87.1 Hypo-osmolality and hyponatremia (principal); J96.01 Acute respiratory failure with hypoxia; I50.22 Chronic systolic (congestive) heart failure; N18.4 Chronic kidney disease, stage 4 (severe); I13.0 Hypertensive heart and chronic kidney disease with heart failure and stage 1 through stage 4 chronic kidney disease, or unspecified chronic kidney disease; D68.59 Other primary thrombophilia; I48.91 Unspecified atrial fibrillation; E11.649 Type 2 diabetes mellitus with hypoglycemia without coma; E78.5 Hyperlipidemia, unspecified; R33.9 Retention of urine, unspecified; I95.9 Hypotension, unspecified; L29.9 Pruritus, unspecified; R19.7 Diarrhea, unspecified; K21.9 Gastro-esophageal reflux disease without esophagitis; I25.10 Atherosclerotic heart disease of native coronary artery without angina pectoris; Z51.5 Encounter for palliative care; Z66 Do not resuscitate; Z79.84 Long term (current) use of oral hypoglycemic drugs
CPT/HCPCS: 36415; 80048; 80053; 81001; 82550; 83690; 83930; 84295; 84484; 85025; 85610; 94762; 96361; 96365; 96375; 99284; 99291; J0612; J1644

== ENCOUNTER → 2024-05-27 13:22 | Outpatient (ROUT) | payer OTHER, MEDICARE, SELFPAY ==
[2024-05-21 03:10] VITALS: BMI 22.8
[2024-05-27 13:30] LABS: INR 1.5 (0.9-1.3); Prothrombin Time 17.3 SECONDS (9.4-12.5)
[2024-05-27 13:42] LABS: Alanine Aminotransferase 31 IU/L (<50); Albumin 3.8 g/dL (3.5-5.0); Albumin Globulin Ratio 1.4 (1.0-2.8); Alkaline Phosphatase 108 U/L (38-126); Aspartate Aminotransferase 35 IU/L (17-59); BUN Creatinine Ratio 32.1 (6-22); Blood Urea Nitrogen 42 mg/dL (9-20); Calcium 9.2 mg/dL (8.4-10.2); Carbon Dioxide 20 mmol/L (22-32); Chloride 87 mmol/L (98-107); Estimated Glomerular Filt Rate 54 mL/min (>60); Globulin 2.7 g/dL (1.7-4.1); Glucose 180 mg/dL (80-110); HEMOLYSIS < 15 (0-50); Sodium 121 mmol/L (137-145); Total Protein 6.5 g/dL (6.3-8.2)
[2024-05-27 13:44] LABS: Potassium 5.5 mmol/L (3.4-5.1)
== END ==
PROVIDERS: PCP Internal Medicine; Visit Provider Family Medicine
DX: I50.9 Heart failure, unspecified (principal)
CPT/HCPCS: 80053; 85610